=== PATIENT | male | born 1935 ===

== ENCOUNTER 2021-12-09 13:01 | Inpatient (IN) | payer MEDICARE ==
--- NOTE | 2021-12-11 09:55 | Consultation ---
History of Present Illness - Reason for Consult Consult date: 12/11/21 Medical management - History of Present Illness Patient is a 86-year-old male past medical history of coronary artery disease and dementia with behavioral disturbances who presented due to agitation restlessness, and delusions involving his butter wrapper plotting against his . The caregiver reported that the patient made threats to drown himself in a carbajal near his home and carrying a gun around the house while constantly pacing. Patient denies any hallucinations. The hospitalist service was consulted for medical management. Past History Past Medical History: CAD, other (Dementia with behavioral disturbance) Past Surgical History: No surgical history Social history: , lives with family, full code Family history: no significant family history Medications and Allergies Allergies Allergy/AdvReac Type Severity Reaction Status Date / Time No Known Allergies Allergy Unverified 12/09/21 13:02 Home Medications Medication Instructions Recorded Confirmed Last Taken Type Aspirin [Aspirin BABY CHEW TAB] 81 mg PO QDAY 12/10/21 12/10/21 Unknown History AtorvaSTATin [Lipitor] 40 mg PO QHS 12/10/21 12/10/21 Unknown History Cyanocobalamin [Vitamin B-12] 1,000 mcg PO DAILY 12/10/21 12/10/[address] [DepaKOTE DR] 125 mg PO BID 12/10/21 12/10/21 Unknown History Dorzolamide HCl/Timolol Maleat 22.3 mg OU BID 12/10/21 12/10/21 Unknown History [Cosopt Eye Drops] Escitalopram [Lexapro] 10 mg PO QHS 12/10/21 12/10/21 Unknown History Ibuprofen [Motrin 800 MG tab] 800 mg PO DAILY 12/10/21 12/10/21 Unknown History Latanoprost 0.005% [Xalatan 0.005%] 1 drop OU QHS 12/10/21 12/10/21 Unknown History QUEtiapine [SEROquel] 25 mg PO 1400 12/10/21 12/10/21 Unknown History Quetiapine Fumarate [SEROquel] 50 mg PO QHS 12/10/21 12/10/21 Unknown History buPROPion XL [Wellbutrin XL] 150 mg PO QDAY 12/10/21 12/10/21 Unknown History Review of Systems All systems: negative Exam - Constitutional Vitals: Temp Pulse Resp BP Pulse Ox 99.2 F 72 20 137/71 97 12/11/21 09:08 12/11/21 09:08 12/11/21 09:08 12/11/21 09:08 12/11/21 09:08 General appearance: Present: no acute distress, well-nourished - EENT Eyes: Present: PERRL, EOM intact (Legally blind) ENT: hearing intact, clear oral mucosa, dentition normal - Neck Neck: Present: supple, normal ROM - Respiratory Respiratory effort: normal Respiratory: bilateral: CTA - Cardiovascular Rhythm: regular Heart Sounds: Present: S1 & S2 - Extremities Extremities: no ischemia, pulses intact, pulses symmetrical, No edema, normal temperature, normal color Peripheral Pulses: within normal limits - Abdominal General gastrointestinal: Present: soft, non-tender, non-distended, normal bowel sounds Male genitourinary: Present: deferred - Rectal Rectal Exam: deferred - Integumentary Integumentary: Present: clear, warm, dry - Musculoskeletal Musculoskeletal: strength equal bilaterally - Psychiatric Psychiatric: appropriate mood/affect, cooperative - Neurologic Neurologic: CNII-XII intact, moves all extremities - Allied Health Allied health notes reviewed: nursing Results - Labs CBC & Chem 7: 12/11/21 13:32 12/11/21 13:32 Assessment and Plan Patient is a 86-year-old male past medical history of coronary artery disease and dementia with behavioral disturbances who presented due to agitation restlessness, and delusions involving his butter wrapper plotting against his . The caregiver reported that the patient made threats to drown himself in a carbajal near his home and carrying a gun around the house while constantly pacing. Patient denies any hallucinations. The hospitalist service was consulted for medical management. #Dementia with behavioral disturbances Management per primary #Coronary artery disease Continue home aspirin 81 mg daily and atorvastatin 40 mg daily #Advanced care planning -Disease education conducted, care plan discussed, diagnoses discussed, prognosis discussed, and patient acknowledges understanding with care plan -Time: +30 min Thank you for this interesting consult. We will continue to follow.
--- NOTE | 2021-12-11 11:01 | History and Physical Report ---
GP History & Physical - History of Present Illness Date of admission: 12/10/21 Date of Examination: 12/11/21 Reason for Admission: Danger to self, Failure of Outpatient Treatment, Severe anxiety/depression History of Present Illness: The patient was seen today. The patient has poor insight. He was admitted for being delusional, agitated, restless and experiencing AVH. Patient believed caregiver was plotting against his therefore he kicked the caregiver out of his home. Caregiver reports patient carries a gun with him around the house, and constantly paces. Patient also made threats to drown himself in a carbajal near his home, according to admission note. During my evaluation, the patient is very [place]. He is a/o x 2. He believes he's admitted for "heart problems." The patient then says "I really don't know." I ask him about some of the things reported upon admission, he says "God, no I didn't do any of that. I don't want to hurt myself or any one." He denies hallucinations. PAST PSYCHIATRIC HISTORY: PAST MEDICAL HISTORY: Family Psychiatric History None reported or documented SOCIAL HISTORY REVIEW OF SYSTEMS ROS: Unable to assess MENTAL STATUS General Appearance and Behavior: age appropriate, good eye contact, cooperative, calm, pleasant Cooperation: Cooperative Psychomotor Behavior: within normal limits Mood: confused Affect and affective range: Congruent with stated mood Thought Process: circumstantial Thought Content: none Speech: Normal volume and Regular rate and rhythm Suicidal Ideation: Denies Homicidal Ideation: Denies HI Hallucinations: Denies Delusions: None elicited Impulse Control: Limited Insight and Judgment: Limited Memory: Limited Attention: Attentive Orientation: alert and oriented Diagnoses: Dementia with Behavioral Disturbance Treatment Plan Patient will be admitted for inpatient psychiatric evaluation, medication adjustment and close monitoring The patient's behavior, mood, sleep and appetite will be closely monitored. Patient will be enrolled in individual and group therapeutic sessions and encouraged to attend. Patient will be provided with a safe and structured environment. Patient's physical health needs will be addressed by the Hospitalist. Hospitalist Consulted Labs including CBC, CMP, Lipid profile and Hemoglobin A1C ordered Social Assessment will be completed and the Rn Wound Care will work with patient and family to ensure a suitable and safe disposition Medication adjustment will be made as clinically indicated Continue home medications Usual Wellness Christian/Preservation: The patient agreed on the treatment plan, understood the risk, benefit, alternative treatment, potential consequence of no treatment, and gave informed consent. Legal Status: Involuntary Reaction to Hospitalization: Accepting Case staffed with Dr. Roberts Legal Status: Voluntary Reaction to Hospitalization: Accepting Medications and Allergies Allergies Allergy/AdvReac Type Severity Reaction Status Date / Time No Known Allergies Allergy Unverified 12/09/21 13:02 Home Medications Medication Instructions Recorded Confirmed Last Taken Type Aspirin [Aspirin BABY CHEW TAB] 81 mg PO QDAY 12/10/21 12/10/21 Unknown History AtorvaSTATin [Lipitor] 40 mg PO QHS 12/10/21 12/10/21 Unknown History Cyanocobalamin [Vitamin B-12] 1,000 mcg PO DAILY 12/10/21 12/10/21 Unknown History Divalproex [Gregor TOLENTINO] 125 mg PO BID 12/10/21 12/10/21 Unknown History Dorzolamide HCl/Timolol Maleat 22.3 mg OU BID 12/10/21 12/10/21 Unknown History [Cosopt Eye Drops] Escitalopram [Lexapro] 10 mg PO QHS 12/10/21 12/10/21 Unknown History Ibuprofen [Motrin 800 MG tab] 800 mg PO DAILY 12/10/21 12/10/21 Unknown History Latanoprost 0.005% [Xalatan 0.005%] 1 drop OU QHS 12/10/21 12/10/21 Unknown History QUEtiapine [SEROquel] 25 mg PO 1400 12/10/21 12/10/21 Unknown History Quetiapine Fumarate [SEROquel] 50 mg PO QHS 12/10/21 12/10/21 Unknown History buPROPion XL [Wellbutrin XL] 150 mg PO QDAY 12/10/21 12/10/21 Unknown History Results - Results Labs/Vitals: Last Vital Signs Temp 99.2 F 12/11/21 09:08 Pulse 72 12/11/21 09:08 Resp 20 12/11/21 09:08 BP 137/71 12/11/21 09:08 Pulse Ox 97 12/11/21 09:08 Physical Examination - Constitutional Vitals: Vital Signs Temp Pulse Resp BP Pulse Ox 99.2 F 72 20 137/71 97 12/11/21 09:08 12/11/21 09:08 12/11/21 09:08 12/11/21 09:08 08/12/22 09:08 Temperature -Last 24 Hours Temperature 99.2 F Temperature 97.8 F Mental Status Exam - Vital signs Last Vital Signs Temp 99.2 F 12/11/21 09:08 Pulse 72 12/11/21 09:08 Resp 20 12/11/21 09:08 BP 137/71 12/11/21 09:08 Pulse Ox 97 12/11/21 09:08 Physician Certification - Certification Statement Physician Certification Statement: This is an acknowledgement statement that RENETTA Morgan LILIANA is a 86 year old M who requires inpatient psychiatric admission for treatment which could reasonably be expected to improve the patient's condition for Estimated period of time patient will need to remain in the hospital: [ ] Plan for post-hospital care: [ ]
[2021-12-11] MEDS ORDERED: NON-FORMULARY EACH (Dorzolamide Hcl/Timolol Maleat [Cosopt Eye Drops] 10 ML Drops) OU SCH (11:15)
[2021-12-11] MEDS: IBUPROFEN 800 MG TAB PO SCH (12:13)
[2021-12-11] MEDS: DIVALPROEX DR 125 MG TAB PO SCH ×2 (12:14→21:18)
[2021-12-11] MEDS: CYANOCOBALAMIN (VIT B-12) 1000 MCG TAB PO SCH (12:14)
[2021-12-11] MEDS: ASPIRIN 81 MG TAB CHEW PO SCH (12:14)
[2021-12-11] MEDS: buPROPion XL 150 MG TAB PO SCH (12:14)
[2021-12-11] MEDS: QUEtiapine 25 MG TAB PO SCH ×2 (13:06→21:19)
[2021-12-11 13:55] LABS: Basophils % (Auto) 0.4 % (0.0-1.8); Eosinophils # (Auto) 0.1 K/mm3 (0.0-0.4); Eosinophils % (Auto) 1.1 % (0.0-4.3); Hemoglobin 14.1 gm/dl (11.8-15.2); Lymphocytes # (Auto) 1.4 K/mm3 (1.2-5.4); Lymphocytes % (Auto) 26.4 % (13.4-35.0); Mean Corpuscular HGB Conc 34 % (32-34); Mean Corpuscular Volume 88 fl (84-94); Monocytes # (Auto) 0.8 K/mm3 (0.0-0.8); Monocytes % (Auto) 15.8 % (0.0-7.3); Platelet Count 199 K/mm3 (140-440); Red Blood Count 4.77 M/mm3 (3.65-5.03); Red Cell Distribution Width 14.6 % (13.2-15.2)
[2021-12-11 14:12] LABS: Calcium 8.7 mg/dL (8.4-10.2); Chol/HDL Ratio 5.82 %
[2021-12-11 14:43] LABS: Hepatitis B Surface Antigen Non-Reactive (Negative); Hepatitis C Virus Antibody Non-Reactive (NonReactive)
[2021-12-11] MEDS: LATANOPROST 0.005% OPHTH SOLN 2.5 ML OU SCH (21:18)
[2021-12-11] MEDS: ESCITALOPRAM 10 MG TAB PO SCH (21:19)
[2021-12-11] MEDS ORDERED: NON-FORMULARY EACH (Quetiapine Fumarate [Seroquel] 50 MG Tablet) PO SCH (22:00)
[2021-12-12] MEDS: IBUPROFEN 800 MG TAB PO SCH ×2 (08:40→10:35)
[2021-12-12] MEDS: DIVALPROEX DR 125 MG TAB PO SCH ×3 (08:40→21:06)
[2021-12-12] MEDS: CYANOCOBALAMIN (VIT B-12) 1000 MCG TAB PO SCH ×2 (08:40→10:35)
[2021-12-12] MEDS: ASPIRIN 81 MG TAB CHEW PO SCH ×2 (08:40→10:35)
[2021-12-12] MEDS: buPROPion XL 150 MG TAB PO SCH ×2 (08:40→10:36)
--- NOTE | 2021-12-12 08:54 | Progress Note ---
Subjective Date of service: 12/12/21 Principal diagnosis: Dementia w/Behavioral Disturbance Subjective Comment: The patient was seen today. He is calm, and cooperative. The patient is pleasant. He says he's doing fine. He denies SI/HI. He says "heck no" when asked. He says his appetite is good. I ask him about why he came in. He says "I didn't know none of that." REVIEW OF SYSTEMS Unable to assess MENTAL STATUS General Appearance and Behavior: age appropriate, good eye contact, cooperative, calm, pleasant Cooperation: Cooperative Psychomotor Behavior: within normal limits Mood: confused Affect and affective range: Congruent with stated mood Thought Process: circumstantial Thought Content: none Speech: Normal volume and Regular rate and rhythm Suicidal Ideation: Denies Homicidal Ideation: Denies HI Hallucinations: Denies Delusions: None elicited Impulse Control: Limited Insight and Judgment: Limited Memory: Limited Attention: Attentive Orientation: alert and oriented Diagnoses: Dementia with Behavioral Disturbance Treatment Plan Patient will be admitted for inpatient psychiatric evaluation, medication adjustment and close monitoring The patient's behavior, mood, sleep and appetite will be closely monitored. Patient will be enrolled in individual and group therapeutic sessions and encouraged to attend. Patient will be provided with a safe and structured environment. Patient's physical health needs will be addressed by the Hospitalist. Hospitalist Consulted Labs including CBC, CMP, Lipid profile and Hemoglobin A1C ordered Social Assessment will be completed and the Registered Health Nurse will work with patient and family to ensure a suitable and safe disposition Medication adjustment will be made as clinically indicated Continue home medications Usual Wellness Gnosticism/Preservation: The patient agreed on the treatment plan, understood the risk, benefit, al ternative treatment, potential consequence of no treatment, and gave informed consent. Legal Status: Involuntary Reaction to Hospitalization: Accepting Case staffed with Dr. Roberts Medications and Allergies Allergies Allergy/AdvReac Type Severity Reaction Status Date / Time No Known Allergies Allergy Unverified 12/09/21 13:02 Home Medications Medication Instructions Recorded Confirmed Last Taken Type Aspirin [Aspirin BABY CHEW TAB] 81 mg PO QDAY 12/10/21 12/10/21 Unknown History AtorvaSTATin [Lipitor] 40 mg PO QHS 12/10/21 12/10/21 Unknown History Cyanocobalamin [Vitamin B-12] 1,000 mcg PO DAILY 12/10/21 12/10/[address] [DepaKOTE DR] 125 mg PO BID 12/10/21 12/10/21 Unknown History Dorzolamide HCl/Timolol Maleat 22.3 mg OU BID 12/10/21 12/10/21 Unknown History [Cosopt Eye Drops] Escitalopram [Lexapro] 10 mg PO QHS 12/10/21 12/10/21 Unknown History Ibuprofen [Motrin 800 MG tab] 800 mg PO DAILY 12/10/21 12/10/21 Unknown History Latanoprost 0.005% [Xalatan 0.005%] 1 drop OU QHS 12/10/21 12/10/21 Unknown History QUEtiapine [SEROquel] 25 mg PO 1400 12/10/21 12/10/21 Unknown History Quetiapine Fumarate [SEROquel] 50 mg PO QHS 12/10/21 12/10/21 Unknown History buPROPion XL [Wellbutrin XL] 150 mg PO QDAY 12/10/21 12/10/21 Unknown History Active Meds: Active Medications Aspirin (Aspirin 81 Mg Tab Chew) 81 mg PO QDAY [facility] Last Admin: 12/12/21 08:40 Dose: 81 mg Atorvastatin Calcium (Atorvastatin 40 Mg Tab) 40 mg PO QHS [facility] Last Admin: 12/11/21 21:19 Dose: 40 mg Bupropion HCl (Bupropion Xl 150 Mg Tab) 150 mg PO QDAY [facility] Last Admin: 12/12/21 08:40 Dose: 150 mg Cyanocobalamin (Cyanocobalamin (Vit B-12) 1000 Mcg Tab) 1,000 mcg PO DAILY [facility] Last Admin: 12/12/21 08:40 Dose: 1,000 mcg Divalproex Sodium (Divalproex Dr 125 Mg Tab) 125 mg PO BID [facility] Last Admin: 12/12/21 08:40 Dose: 125 mg Escitalopram Oxalate (Escitalopram 10 Mg Tab) 10 mg PO QHS [facility] Last Admin: 12/11/21 21:19 Dose: 10 mg Ibuprofen (Ibuprofen 800 Mg Tab) 800 mg PO DAILY [facility] Last Admin: 12/12/21 08:40 Dose: 800 mg Latanoprost (Latanoprost 0.005% Ophth Soln 2.5 Ml) 1 drops OU QHS [facility] Last Admin: 12/11/21 21:18 Dose: 1 drops Miscellaneous Medication (Dorzolamide Hcl/Timolol Maleat [Cosopt Eye Drops]) 22.3 mg OU BID [facility] Quetiapine Fumarate (Quetiapine 25 Mg Tab) 25 mg PO 1400 [facility] Last Admin: 12/11/21 13:06 Dose: 25 mg Quetiapine Fumarate (Quetiapine 25 Mg Tab) 50 mg PO QHS [facility] Last Admin: 12/11/21 21:19 Dose: 50 mg Results - Results Labs/Vitals: Laboratory Last Values WBC 5.3 K/mm3 (4.5-11.0) 12/11/21 13:32 RBC 4.77 M/mm3 (3.65-5.03) 12/11/21 13:32 Hgb 14.1 gm/dl (11.8-15.2) 12/11/21 13:32 Hct 42.0 % (35.5-45.6) 12/11/21 13:32 MCV 88 fl (84-94) 12/11/21 13:32 MCH 30 pg (28-32) 12/11/21 13:32 MCHC 34 % (32-34) 12/11/21 13:32 RDW 14.6 % (13.2-15.2) 12/11/21 13:32 Plt Count 199 K/mm3 (140-440) 12/11/21 13:32 Lymph % (Auto) 26.4 % (13.4-35.0) 12/11/21 13:32 [place] % (Auto) 15.8 % (0.0-7.3) H 12/11/21 13:32 Eos % (Auto) 1.1 % (0.0-4.3) 12/11/21 13:32 Baso % (Auto) 0.4 % (0.0-1.8) 12/11/21 13:32 Lymph # (Auto) 1.4 K/mm3 (1.2-5.4) 12/11/21 13:32 [place] # (Auto) 0.8 K/mm3 (0.0-0.8) 12/11/21 13:32 Eos # (Auto) 0.1 K/mm3 (0.0-0.4) 12/11/21 13:32 Baso # (Auto) 0.0 K/mm3 (0.0-0.1) 12/11/21 13:32 Seg Neutrophils % 56.3 % (40.0-70.0) 12/11/21 13:32 Seg Neutrophils # 3.0 K/mm3 (1.8-7.7) 12/11/21 13:32 Sodium 138 mmol/L (137-145) 12/11/21 13:32 Potassium 4.1 mmol/L (3.6-5.0) 12/11/21 13:32 Chloride 101.4 mmol/L (98-107) 12/11/21 13:32 Carbon Dioxide 24 mmol/L (22-30) 12/11/21 13:32 Anion Gap 17 mmol/L 12/11/21 13:32 BUN 21 mg/dL (9-20) H 12/11/21 13:32 Creatinine 1.4 mg/dL (0.8-1.3) H 12/11/21 13:32 Estimated GFR 48 ml/min 12/11/21 13:32 BUN/Creatinine Ratio 15 % 12/11/21 13:32 Glucose 117 mg/dL (75-100) H 12/11/21 13:32 Hemoglobin A1c 6.1 % (4-6) H 12/11/21 13:32 Calcium 8.7 mg/dL (8.4-10.2) 12/11/21 13:32 Total Bilirubin 0.50 mg/dL (0.1-1.2) 12/11/21 13:32 AST 45 units/L (5-40) H 12/11/21 13:32 ALT 50 units/L (7-56) 12/11/21 13:32 Alkaline Phosphatase 69 units/L (35-129) 12/11/21 13:32 Total Protein 6.1 g/dL (6.3-8.2) L 12/11/21 13:32 Albumin 4.0 g/dL (3.9-5) 12/11/21 13:32 Albumin/Globulin Ratio 1.9 % 12/11/21 13:32 Triglycerides 251 mg/dL (2-149) H 12/11/21 13:32 Cholesterol 239 mg/dL (50-199) H 12/11/21 13:32 LDL Cholesterol Direct 158 mg/dL (50-130) H 12/11/21 13:32 HDL Cholesterol 41 mg/dL (40-59) 12/11/21 13:32 Cholesterol/HDL Ratio 5.82 % 12/11/21 13:32 TSH 3.160 mlU/mL (0.270-4.200) 12/11/21 13:32 Hepatitis A IgM Ab Non-reactive (NonReactive) 12/11/21 13:32 Hep Bs Antigen Non-reactive (Negative) 12/11/21 13:32 Hep B Core IgM Ab Non-reactive (NonReactive) 12/11/21 13:32 Hepatitis C Antibody Non-reactive (NonReactive) 12/11/21 13:32 Last Vital Signs Temp 100.9 F H 12/12/21 07:55 Pulse 76 12/12/21 07:55 Resp 18 12/12/21 07:55 BP 136/71 12/12/21 07:55 Pulse Ox 97 12/11/21 19:57
[2021-12-12] MEDS: QUEtiapine 25 MG TAB PO SCH ×2 (13:40→21:06)
[2021-12-12] MEDS: ESCITALOPRAM 10 MG TAB PO SCH (21:06)
[2021-12-12] MEDS: LATANOPROST 0.005% OPHTH SOLN 2.5 ML OU SCH (21:06)
--- NOTE | 2021-12-13 09:30 | Progress Note ---
Assessment and Plan Assessment and plan: Patient is a 86-year-old male past medical history of coronary artery disease and dementia with behavioral disturbances who presented due to agitation restlessness, and delusions involving his senior dot net developer plotting against his . The caregiver reported that the patient made threats to drown himself in a carbajal near his home and carrying a gun around the house while constantly pacing. Patient denies any hallucinations. The hospitalist service was consulted for medical management. #Dementia with behavioral disturbances Management per primary #Coronary artery disease Continue home aspirin 81 mg daily and atorvastatin 40 mg daily #Advanced care planning -Disease education conducted, care plan discussed, diagnoses discussed, prognosis discussed, and patient acknowledges understanding with care plan -Time: +30 min Thank you for this interesting consult. Patient is medically clear for disch arge from a medicine standpoint whenever [facility] psych feels he is ready for discharge. Disposition Plan: Continue medical management Total Time Spent with Patient (Minutes): 30 minutes History Interval history: No acute events overnight. Hospitalist Physical - Constitutional Vitals: Temp Pulse Resp BP Pulse Ox 98.6 F 64 18 140/66 92 12/12/21 20:56 12/12/21 20:56 12/12/21 20:56 12/12/21 20:56 12/12/21 20:56 General appearance: Present: no acute distress, well-nourished - EENT Eyes: Present: PERRL, EOM intact (Legally blind) ENT: hearing intact, clear oral mucosa, dentition normal - Neck Neck: Present: supple, normal ROM - Respiratory Respiratory effort: normal Respiratory: bilateral: CTA - Cardiovascular Rhythm: regular Heart Sounds: Present: S1 & S2 - Extremities Extremities: no ischemia, pulses intact, pulses symmetrical, No edema, normal temperature, normal color Peripheral Pulses: within normal limits - Abdominal General gastrointestinal: soft, non-tender, non-distended, normal bowel sounds - Integumentary Integumentary: Present: clear, warm, dry - Psychiatric Psychiatric: appropriate mood/affect, cooperative - Neurologic Neurologic: CNII-XII intact, moves all extremities - Allied Health Allied health notes reviewed: nursing Results - Labs CBC & Chem 7: 12/11/21 13:32 12/11/21 13:32 Labs: Laboratory Last Values WBC 5.3 K/mm3 (4.5-11.0) 12/11/21 13:32 RBC 4.77 M/mm3 (3.65-5.03) 12/11/21 13:32 Hgb 14.1 gm/dl (11.8-15.2) 12/11/21 13:32 Hct 42.0 % (35.5-45.6) 12/11/21 13:32 MCV 88 fl (84-94) 12/11/21 13:32 MCH 30 pg (28-32) 12/11/21 13:32 MCHC 34 % (32-34) 12/11/21 13:32 RDW 14.6 % (13.2-15.2) 12/11/21 13:32 Plt Count 199 K/mm3 (140-440) 12/11/21 13:32 Lymph % (Auto) 26.4 % (13.4-35.0) 12/11/21 13:32 [place] % (Auto) 15.8 % (0.0-7.3) H 12/11/21 13:32 Eos % (Auto) 1.1 % (0.0-4.3) 12/11/21 13:32 Baso % (Auto) 0.4 % (0.0-1.8) 12/11/21 13:32 Lymph # (Auto) 1.4 K/mm3 (1.2-5.4) 12/11/21 13:32 [place] # (Auto) 0.8 K/mm3 (0.0-0.8) 12/11/21 13:32 Eos # (Auto) 0.1 K/mm3 (0.0-0.4) 12/11/21 13:32 Baso # (Auto) 0.0 K/mm3 (0.0-0.1) 12/11/21 13:32 Seg Neutrophils % 56.3 % (40.0-70.0) 12/11/21 13:32 Seg Neutrophils # 3.0 K/mm3 (1.8-7.7) 12/11/21 13:32 Sodium 138 mmol/L (137-145) 12/11/21 13:32 Potassium 4.1 mmol/L (3.6-5.0) 12/11/21 13:32 Chloride 101.4 mmol/L (98-107) 12/11/21 13:32 Carbon Dioxide 24 mmol/L (22-30) 12/11/21 13:32 Anion Gap 17 mmol/L 12/11/21 13:32 BUN 21 mg/dL (9-20) H 12/11/21 13:32 Creatinine 1.4 mg/dL (0.8-1.3) H 12/11/21 13:32 Estimated GFR 48 ml/min 12/11/21 13:32 BUN/Creatinine Ratio 15 % 12/11/21 13:32 Glucose 117 mg/dL (75-100) H 12/11/21 13:32 Hemoglobin A1c 6.1 % (4-6) H 12/11/21 13:32 Calcium 8.7 mg/dL (8.4-10.2) 12/11/21 13:32 Total Bilirubin 0.50 mg/dL (0.1-1.2) 12/11/21 13:32 AST 45 units/L (5-40) H 12/11/21 13:32 ALT 50 units/L (7-56) 12/11/21 13:32 Alkaline Phosphatase 69 units/L (35-129) 12/11/21 13:32 Total Protein 6.1 g/dL (6.3-8.2) L 12/11/21 13:32 Albumin 4.0 g/dL (3.9-5) 12/11/21 13:32 Albumin/Globulin Ratio 1.9 % 12/11/21 13:32 Triglycerides 251 mg/dL (2-149) H 12/11/21 13:32 Cholesterol 239 mg/dL (50-199) H 12/11/21 13:32 LDL Cholesterol Direct 158 mg/dL (50-130) H 12/11/21 13:32 HDL Cholesterol 41 mg/dL (40-59) 12/11/21 13:32 Cholesterol/HDL Ratio 5.82 % 12/11/21 13:32 TSH 3.160 mlU/mL (0.270-4.200) 12/11/21 13:32 Hepatitis A IgM Ab Non-reactive (NonReactive) 12/11/21 13:32 Hep Bs Antigen Non-reactive (Negative) 12/11/21 13:32 Hep B Core IgM Ab Non-reactive (NonReactive) 12/11/21 13:32 Hepatitis C Antibody Non-reactive (NonReactive) 12/11/21 13:32 Obrien/IV: Voiding Method Toilet Active Medications - Current Medications Current Medications: Generic Name Dose Route Start Last Admin Trade Name Enriqueq PRN Reason Stop Dose Admin Aspirin 81 mg 12/11/21 12:00 12/12/21 10:35 Aspirin 81 Mg Tab Chew PO Not Given QDAY [facility] Atorvastatin Calcium 40 mg 12/11/21 22:00 12/12/21 21:06 Atorvastatin 40 Mg Tab PO 40 mg QHS [facility] Administration Bupropion HCl 150 mg 12/11/21 12:00 12/12/21 10:36 Bupropion Xl 150 Mg Tab PO Not Given QDAY [facility] Cyanocobalamin 1,000 mcg 12/11/21 12:00 12/12/21 10:35 Cyanocobalamin (Vit B-12) 1000 Mcg Tab PO Not Given DAILY [facility] Divalproex Sodium 125 mg 12/11/21 12:00 12/12/21 21:[address] 125 Mg Tab PO 125 mg BID [facility] Administration Escitalopram Oxalate 10 mg 12/11/21 22:00 12/12/21 21:06 Escitalopram 10 Mg Tab PO 10 mg QHS [facility] Administration Ibuprofen 800 mg 12/11/21 12:00 12/12/21 10:35 Ibuprofen 800 Mg Tab PO Not Given DAILY [facility] Latanoprost 1 drops 12/11/21 22:00 12/12/21 21:06 Latanoprost 0.005% Ophth Soln 2.5 Ml OU 1 drops QHS [facility] Administration Miscellaneous Medication 22.3 mg 12/11/21 11:15 Dorzolamide Hcl/Timolol Maleat [Cosopt Eye Drops] OU BID [facility] Quetiapine Fumarate 25 mg 12/11/21 14:00 12/12/21 13:40 Quetiapine 25 Mg Tab PO 25 mg 1400 [facility] Administration Quetiapine Fumarate 50 mg 12/11/21 22:00 12/12/21 21:06 Quetiapine 25 Mg Tab PO 50 mg QHS [facility] Administration
[2021-12-13] MEDS: IBUPROFEN 800 MG TAB PO SCH (10:42)
[2021-12-13] MEDS: buPROPion XL 150 MG TAB PO SCH (10:42)
[2021-12-13] MEDS: DIVALPROEX DR 125 MG TAB PO SCH ×2 (10:43→22:00)
[2021-12-13] MEDS: ASPIRIN 81 MG TAB CHEW PO SCH (10:43)
[2021-12-13] MEDS: CYANOCOBALAMIN (VIT B-12) 1000 MCG TAB PO SCH (10:43)
--- NOTE | 2021-12-13 13:11 | Progress Note ---
Subjective Date of service: 12/13/21 Principal diagnosis: Dementia w/Behavioral Disturbance Subjective Comment: The patient was seen today. He is calm, and cooperative. The patient is sleeping in the dayroom. He easily arouses, but says he's tired. He says he slept well. The patient denies SI/HI or hallucinations. REVIEW OF SYSTEMS Unable to assess MENTAL STATUS General Appearance and Behavior: age appropriate, good eye contact, cooperative, calm, pleasant Cooperation: Cooperative Psychomotor Behavior: within normal limits Mood: confused Affect and affective range: Congruent with stated mood Thought Process: circumstantial Thought Content: none Speech: Normal volume and Regular rate and rhythm Suicidal Ideation: Denies Homicidal Ideation: Denies HI Hallucinations: Denies Delusions: None elicited Impulse Control: Limited Insight and Judgment: Limited Memory: Limited Attention: Attentive Orientation: alert and oriented Diagnoses: Dementia with Behavioral Disturbance Treatment Plan Patient will be admitted for inpatient psychiatric evaluation, medication adjustment and close monitoring The patient's behavior, mood, sleep and appetite will be closely monitored. Patient will be enrolled in individual and group therapeutic sessions and encouraged to attend. Patient will be provided with a safe and structured environment. Patient's physical health needs will be addressed by the Hospitalist. Hospitalist Consulted Labs including CBC, CMP, Lipid profile and Hemoglobin A1C ordered Social Assessment will be completed and the Staffing Assistant will work with patient and family to ensure a suitable and safe disposition Medication adjustment will be made as clinically indicated Continue home medications Usual Wellness [facility]: The patient agreed on the treatment plan, understood the risk, benefit, alternative treatment, potential consequence of no treatment, and gave informed consent. Legal Status: Involuntary Reaction to Hospitalization: Accepting Case staffed with Dr. Roberts Medications and Allergies Allergies Allergy/AdvReac Type Severity Reaction Status Date / Time No Known Allergies Allergy Unverified 12/09/21 13:02 Home Medications Medication Instructions Recorded Confirmed Last Taken Type Aspirin [Aspirin BABY CHEW TAB] 81 mg PO QDAY 12/10/21 12/10/21 Unknown History AtorvaSTATin [Lipitor] 40 mg PO QHS 12/10/21 12/10/21 Unknown History Cyanocobalamin [Vitamin B-12] 1,000 mcg PO DAILY 12/10/21 12/10/[address] [DepaKOTE DR] 125 mg PO BID 12/10/21 12/10/21 Unknown History Dorzolamide HCl/Timolol Maleat 22.3 mg OU BID 12/10/21 12/10/21 Unknown History [Cosopt Eye Drops] Escitalopram [Lexapro] 10 mg PO QHS 12/10/21 12/10/21 Unknown History Ibuprofen [Motrin 800 MG tab] 800 mg PO DAILY 12/10/21 12/10/21 Unknown History Latanoprost 0.005% [Xalatan 0.005%] 1 drop OU QHS 12/10/21 12/10/21 Unknown History QUEtiapine [SEROquel] 25 mg PO 1400 12/10/21 12/10/21 Unknown History Quetiapine Fumarate [SEROquel] 50 mg PO QHS 12/10/21 12/10/21 Unknown History buPROPion XL [Wellbutrin XL] 150 mg PO QDAY 12/10/21 12/10/21 Unknown History Active Meds: Active Medications Aspirin (Aspirin 81 Mg Tab Chew) 81 mg PO QDAY [facility] Last Admin: 12/13/21 10:43 Dose: 81 mg Atorvastatin Calcium (Atorvastatin 40 Mg Tab) 40 mg PO QHS [facility] Last Admin: 12/12/21 21:06 Dose: 40 mg Bupropion HCl (Bupropion Xl 150 Mg Tab) 150 mg PO QDAY [facility] Last Admin: 12/13/21 10:42 Dose: 150 mg Cyanocobalamin (Cyanocobalamin (Vit B-12) 1000 Mcg Tab) 1,000 mcg PO DAILY [facility] Last Admin: 12/13/21 10:43 Dose: 1,000 mcg Divalproex Sodium (Divalproex Dr 125 Mg Tab) 125 mg PO BID [facility] Last Admin: 12/13/21 10:43 Dose: 125 mg Escitalopram Oxalate (Escitalopram 10 Mg Tab) 10 mg PO QHS [facility] Last Admin: 12/12/21 21:06 Dose: 10 mg Ibuprofen (Ibuprofen 800 Mg Tab) 800 mg PO DAILY [facility] Last Admin: 12/13/21 10:42 Dose: 800 mg Latanoprost (Latanoprost 0.005% Ophth Soln 2.5 Ml) 1 drops OU QHS [facility] Last Admin: 12/12/21 21:06 Dose: 1 drops Miscellaneous Medication (Dorzolamide Hcl/Timolol Maleat [Cosopt Eye Drops]) 22.3 mg OU BID [facility] Quetiapine Fumarate (Quetiapine 25 Mg Tab) 25 mg PO 1400 [facility] Last Admin: 12/12/21 13:40 Dose: 25 mg Quetiapine Fumarate (Quetiapine 25 Mg Tab) 50 mg PO QHS [facility] Last Admin: 12/12/21 21:06 Dose: 50 mg Results - Results Labs/Vitals: Laboratory Last Values WBC 5.3 K/mm3 (4.5-11.0) 12/11/21 13:32 RBC 4.77 M/mm3 (3.65-5.03) 12/11/21 13:32 Hgb 14.1 gm/dl (11.8-15.2) 12/11/21 13:32 Hct 42.0 % (35.5-45.6) 12/11/21 13:32 MCV 88 fl (84-94) 12/11/21 13:32 MCH 30 pg (28-32) 12/11/21 13:32 MCHC 34 % (32-34) 12/11/21 13:32 RDW 14.6 % (13.2-15.2) 12/11/21 13:32 Plt Count 199 K/mm3 (140-440) 12/11/21 13:32 Lymph % (Auto) 26.4 % (13.4-35.0) 12/11/21 13:32 [place] % (Auto) 15.8 % (0.0-7.3) H 12/11/21 13:32 Eos % (Auto) 1.1 % (0.0-4.3) 12/11/21 13:32 Baso % (Auto) 0.4 % (0.0-1.8) 12/11/21 13:32 Lymph # (Auto) 1.4 K/mm3 (1.2-5.4) 12/11/21 13:32 [place] # (Auto) 0.8 K/mm3 (0.0-0.8) 12/11/21 13:32 Eos # (Auto) 0.1 K/mm3 (0.0-0.4) 12/11/21 13:32 Baso # (Auto) 0.0 K/mm3 (0.0-0.1) 12/11/21 13:32 Seg Neutrophils % 56.3 % (40.0-70.0) 12/11/21 13:32 Seg Neutrophils # 3.0 K/mm3 (1.8-7.7) 12/11/21 13:32 Sodium 138 mmol/L (137-145) 12/11/21 13:32 Potassium 4.1 mmol/L (3.6-5.0) 12/11/21 13:32 Chloride 101.4 mmol/L (98-107) 12/11/21 13:32 Carbon Dioxide 24 mmol/L (22-30) 12/11/21 13:32 Anion Gap 17 mmol/L 12/11/21 13:32 BUN 21 mg/dL (9-20) H 12/11/21 13:32 Creatinine 1.4 mg/dL (0.8-1.3) H 12/11/21 13:32 Estimated GFR 48 ml/min 12/11/21 13:32 BUN/Creatinine Ratio 15 % 12/11/21 13:32 Glucose 117 mg/dL (75-100) H 12/11/21 13:32 Hemoglobin A1c 6.1 % (4-6) H 12/11/21 13:32 Calcium 8.7 mg/dL (8.4-10.2) 12/11/21 13:32 Total Bilirubin 0.50 mg/dL (0.1-1.2) 12/11/21 13:32 AST 45 units/L (5-40) H 12/11/21 13:32 ALT 50 units/L (7-56) 12/11/21 13:32 Alkaline Phosphatase 69 units/L (35-129) 12/11/21 13:32 Total Protein 6.1 g/dL (6.3-8.2) L 12/11/21 13:32 Albumin 4.0 g/dL (3.9-5) 12/11/21 13:32 Albumin/Globulin Ratio 1.9 % 12/11/21 13:32 Triglycerides 251 mg/dL (2-149) H 12/11/21 13:32 Cholesterol 239 mg/dL (50-199) H 12/11/21 13:32 LDL Cholesterol Direct 158 mg/dL (50-130) H 12/11/21 13:32 HDL Cholesterol 41 mg/dL (40-59) 12/11/21 13:32 Cholesterol/HDL Ratio 5.82 % 12/11/21 13:32 TSH 3.160 mlU/mL (0.270-4.200) 12/11/21 13:32 Hepatitis A IgM Ab Non-reactive (NonReactive) 12/11/21 13:32 Hep Bs Antigen Non-reactive (Negative) 12/11/21 13:32 Hep B Core IgM Ab Non-reactive (NonReactive) 12/11/21 13:32 Hepatitis C Antibody Non-reactive (NonReactive) 12/11/21 13:32 Last Vital Signs Temp 98.6 F 12/12/21 20:56 Pulse 64 12/12/21 20:56 Resp 18 12/12/21 20:56 BP 140/66 12/12/21 20:56 Pulse Ox 92 12/12/21 20:56
[2021-12-13] MEDS: QUEtiapine 25 MG TAB PO SCH ×2 (13:59→22:00)
[2021-12-13] MEDS: ESCITALOPRAM 10 MG TAB PO SCH (22:00)
[2021-12-13] MEDS: LATANOPROST 0.005% OPHTH SOLN 2.5 ML OU SCH (22:00)
--- NOTE | 2021-12-14 12:12 | Progress Note ---
Subjective Date of service: 12/14/21 Principal diagnosis: Dementia w/Behavioral Disturbance Subjective Comment: The patient was seen today. He is lying in bed resting, but easily arouses. He is calm, and cooperative. He says he feels pretty good today. He says he slept well. The patient denies SI/HI or hallucinations. The patient denied any of incidents that got him admitted into the hospital. REVIEW OF SYSTEMS Unable to assess MENTAL STATUS General Appearance and Behavior: age appropriate, good eye contact, cooperative, calm, pleasant Cooperation: Cooperative Psychomotor Behavior: within normal limits Mood: confused Affect and affective range: Congruent with stated mood Thought Process: circumstantial Thought Content: none Speech: Normal volume and Regular rate and rhythm Suicidal Ideation: Denies Homicidal Ideation: Denies HI Hallucinations: Denies Delusions: None elicited Impulse Control: Limited Insight and Judgment: Limited Memory: Limited Attention: Attentive Orientation: alert and oriented Diagnoses: Dementia with Behavioral Disturbance Treatment Plan Patient will be admitted for inpatient psychiatric evaluation, medication adjustment and close monitoring The patient's behavior, mood, sleep and appetite will be closely monitored. Patient will be enrolled in individual and group therapeutic sessions and encouraged to attend. Patient will be provided with a safe and structured environment. Patient's physical health needs will be addressed by the Hospitalist. Hospitalist Consulted Labs including CBC, CMP, Lipid profile and Hemoglobin A1C ordered Social Assessment will be completed and the Healthcare Technician will work with patient and family to ensure a suitable and safe disposition Medication adjustment will be made as clinically indicated Continue home medications Usual Wellness [facility]/Preservation: The patient agreed on the treatment plan, understood the risk, benefit, alternative treatment, potential consequence of no treatment, and gave informed consent. Legal Status: Involuntary Reaction to Hospitalization: Accepting Case staffed with Dr. Roberts Medications and Allergies Allergies Allergy/AdvReac Type Severity Reaction Status Date / Time No Known Allergies Allergy Unverified 12/09/21 13:02 Home Medications Medication Instructions Recorded Confirmed Last Taken Type Aspirin [Aspirin BABY CHEW TAB] 81 mg PO QDAY 12/10/21 12/10/21 Unknown History AtorvaSTATin [Lipitor] 40 mg PO QHS 12/10/21 12/10/21 Unknown History Cyanocobalamin [Vitamin B-12] 1,000 mcg PO DAILY 12/10/21 12/10/[address] [DepaKOTE DR] 125 mg PO BID 12/10/21 12/10/21 Unknown History Dorzolamide HCl/Timolol Maleat 22.3 mg OU BID 12/10/21 12/10/21 Unknown History [Cosopt Eye Drops] Escitalopram [Lexapro] 10 mg PO QHS 12/10/21 12/10/21 Unknown History Ibuprofen [Motrin 800 MG tab] 800 mg PO DAILY 12/10/21 12/10/21 Unknown History Latanoprost 0.005% [Xalatan 0.005%] 1 drop OU QHS 12/10/21 12/10/21 Unknown History QUEtiapine [SEROquel] 25 mg PO 1400 12/10/21 12/10/21 Unknown History Quetiapine Fumarate [SEROquel] 50 mg PO QHS 12/10/21 12/10/21 Unknown History buPROPion XL [Wellbutrin XL] 150 mg PO QDAY 12/10/21 12/10/21 Unknown History Active Meds: Active Medications Aspirin (Aspirin 81 Mg Tab Chew) 81 mg PO QDAY [facility] Last Admin: 12/13/21 10:43 Dose: 81 mg Atorvastatin Calcium (Atorvastatin 40 Mg Tab) 40 mg PO QHS [facility] Last Admin: 12/13/21 22:00 Dose: 40 mg Bupropion HCl (Bupropion Xl 150 Mg Tab) 150 mg PO QDAY [facility] Last Admin: 12/13/21 10:42 Dose: 150 mg Cyanocobalamin (Cyanocobalamin (Vit B-12) 1000 Mcg Tab) 1,000 mcg PO DAILY [facility] Last Admin: 12/13/21 10:43 Dose: 1,000 mcg Divalproex Sodium (Divalproex Dr 125 Mg Tab) 125 mg PO BID [facility] Last Admin: 12/13/21 22:00 Dose: 125 mg Escitalopram Oxalate (Escitalopram 10 Mg Tab) 10 mg PO QHS [facility] Last Admin: 12/13/21 22:00 Dose: 10 mg Ibuprofen (Ibuprofen 800 Mg Tab) 800 mg PO DAILY [facility] Last Admin: 12/13/21 10:42 Dose: 800 mg Latanoprost (Latanoprost 0.005% Ophth Soln 2.5 Ml) 1 drops OU QHS [facility] Last Admin: 12/13/21 22:00 Dose: 1 drops Miscellaneous Medication (Dorzolamide Hcl/Timolol Maleat [Cosopt Eye Drops]) 22.3 mg OU BID [facility] Quetiapine Fumarate (Quetiapine 25 Mg Tab) 25 mg PO 1400 [facility] Last Admin: 12/13/21 13:59 Dose: 25 mg Quetiapine Fumarate (Quetiapine 25 Mg Tab) 50 mg PO QHS [facility] Last Admin: 12/13/21 22:00 Dose: 50 mg Results - Results Labs/Vitals: Laboratory Last Values WBC 5.3 K/mm3 (4.5-11.0) 12/11/21 13:32 RBC 4.77 M/mm3 (3.65-5.03) 12/11/21 13:32 Hgb 14.1 gm/dl (11.8-15.2) 12/11/21 13:32 Hct 42.0 % (35.5-45.6) 12/11/21 13:32 MCV 88 fl (84-94) 12/11/21 13:32 MCH 30 pg (28-32) 12/11/21 13:32 MCHC 34 % (32-34) 12/11/21 13:32 RDW 14.6 % (13.2-15.2) 12/11/21 13:32 Plt Count 199 K/mm3 (140-440) 12/11/21 13:32 Lymph % (Auto) 26.4 % (13.4-35.0) 12/11/21 13:32 [place] % (Auto) 15.8 % (0.0-7.3) H 12/11/21 13:32 Eos % (Auto) 1.1 % (0.0-4.3) 12/11/21 13:32 Baso % (Auto) 0.4 % (0.0-1.8) 12/11/21 13:32 Lymph # (Auto) 1.4 K/mm3 (1.2-5.4) 12/11/21 13:32 [place] # (Auto) 0.8 K/mm3 (0.0-0.8) 12/11/21 13:32 Eos # (Auto) 0.1 K/mm3 (0.0-0.4) 12/11/21 13:32 Baso # (Auto) 0.0 K/mm3 (0.0-0.1) 12/11/21 13:32 Seg Neutrophils % 56.3 % (40.0-70.0) 12/11/21 13:32 Seg Neutrophils # 3.0 K/mm3 (1.8-7.7) 12/11/21 13:32 Sodium 138 mmol/L (137-145) 12/11/21 13:32 Potassium 4.1 mmol/L (3.6-5.0) 12/11/21 13:32 Chloride 101.4 mmol/L (98-107) 12/11/21 13:32 Carbon Dioxide 24 mmol/L (22-30) 12/11/21 13:32 Anion Gap 17 mmol/L 12/11/21 13:32 BUN 21 mg/dL (9-20) H 12/11/21 13:32 Creatinine 1.4 mg/dL (0.8-1.3) H 12/11/21 13:32 Estimated GFR 48 ml/min 12/11/21 13:32 BUN/Creatinine Ratio 15 % 12/11/21 13:32 Glucose 117 mg/dL (75-100) H 12/11/21 13:32 Hemoglobin A1c 6.1 % (4-6) H 12/11/21 13:32 Calcium 8.7 mg/dL (8.4-10.2) 12/11/21 13:32 Total Bilirubin 0.50 mg/dL (0.1-1.2) 12/11/21 13:32 AST 45 units/L (5-40) H 12/11/21 13:32 ALT 50 units/L (7-56) 12/11/21 13:32 Alkaline Phosphatase 69 units/L (35-129) 12/11/21 13:32 Total Protein 6.1 g/dL (6.3-8.2) L 12/11/21 13:32 Albumin 4.0 g/dL (3.9-5) 12/11/21 13:32 Albumin/Globulin Ratio 1.9 % 12/11/21 13:32 Triglycerides 251 mg/dL (2-149) H 12/11/21 13:32 Cholesterol 239 mg/dL (50-199) H 12/11/21 13:32 LDL Cholesterol Direct 158 mg/dL (50-130) H 12/11/21 13:32 HDL Cholesterol 41 mg/dL (40-59) 12/11/21 13:32 Cholesterol/HDL Ratio 5.82 % 12/11/21 13:32 TSH 3.160 mlU/mL (0.270-4.200) 12/11/21 13:32 Hepatitis A IgM Ab Non-reactive (NonReactive) 12/11/21 13:32 Hep Bs Antigen Non-reactive (Negative) 12/11/21 13:32 Hep B Core IgM Ab Non-reactive (NonReactive) 12/11/21 13:32 Hepatitis C Antibody Non-reactive (NonReactive) 12/11/21 13:32 Last Vital Signs Temp 97.8 F 12/13/21 19:24 Pulse 70 12/13/21 19:24 Resp 17 12/13/21 19:24 BP 159/80 12/13/21 19:24 Pulse Ox 93 12/13/21 19:24
[2021-12-14] MEDS: CYANOCOBALAMIN (VIT B-12) 1000 MCG TAB PO SCH (12:20)
[2021-12-14] MEDS: DIVALPROEX DR 125 MG TAB PO SCH ×2 (12:20→21:26)
[2021-12-14] MEDS: buPROPion XL 150 MG TAB PO SCH (12:21)
[2021-12-14] MEDS: ASPIRIN 81 MG TAB CHEW PO SCH (12:22)
[2021-12-14] MEDS: IBUPROFEN 800 MG TAB PO SCH (12:25)
[2021-12-14] MEDS: QUEtiapine 25 MG TAB PO SCH ×2 (14:00→21:28)
[2021-12-14] MEDS: LATANOPROST 0.005% OPHTH SOLN 2.5 ML OU SCH (21:26)
[2021-12-14] MEDS: ESCITALOPRAM 10 MG TAB PO SCH (21:27)
--- NOTE | 2021-12-15 09:15 | Progress Note ---
Subjective Date of service: 12/15/21 Principal diagnosis: Dementia w/Behavioral Disturbance Subjective Comment: The patient was seen today. He is lying in bed resting, but easily arouses. He raises up and sits on side of the bed. The patient denies SI/HI or hallucinations. REVIEW OF SYSTEMS Unable to assess MENTAL STATUS General Appearance and Behavior: age appropriate, good eye contact, cooperative, calm, pleasant Cooperation: Cooperative Psychomotor Behavior: within normal limits Mood: confused Affect and affective range: Congruent with stated mood Thought Process: circumstantial Thought Content: none Speech: Normal volume and Regular rate and rhythm Suicidal Ideation: Denies Homicidal Ideation: Denies HI Hallucinations: Denies Delusions: None elicited Impulse Control: Limited Insight and Judgment: Limited Memory: Limited Attention: Attentive Orientation: alert and oriented Diagnoses: Dementia with Behavioral Disturbance Treatment Plan Patient will be admitted for inpatient psychiatric evaluation, medication adjustment and close monitoring The patient's behavior, mood, sleep and appetite will be closely monitored. Patient will be enrolled in individual and group therapeutic sessions and encouraged to attend. Patient will be provided with a safe and structured environment. Patient's physical health needs will be addressed by the Hospitalist. Hospitalist Consulted Labs including CBC, CMP, Lipid profile and Hemoglobin A1C ordered Social Assessment will be completed and the Powder Core Tester will work with patient and family to ensure a suitable and safe disposition Medication adjustment will be made as clinically indicated Continue home medications Usual Wellness [facility]/Preservation: The patient agreed on the treatment plan, understood the risk, benefit, alternative treatment, potential consequence of no treatment, and gave informed consent. Legal Status: Involuntary Reaction to Hospitalization: Accepting Case staffed with Dr. Roberts Medications and Allergies Allergies Allergy/AdvReac Type Severity Reaction Status Date / Time No Known Allergies Allergy Unverified 12/09/21 13:02 Home Medications Medication Instructions Recorded Confirmed Last Taken Type Aspirin [Aspirin BABY CHEW TAB] 81 mg PO QDAY 12/10/21 12/10/21 Unknown History AtorvaSTATin [Lipitor] 40 mg PO QHS 12/10/21 12/10/21 Unknown History Cyanocobalamin [Vitamin B-12] 1,000 mcg PO DAILY 12/10/21 12/10/21 Unknown History Divalproex [DepaKOTE ] 125 mg PO BID 12/10/21 12/10/21 Unknown History Dorzolamide HCl/Timolol Maleat 22.3 mg OU BID 12/10/21 12/10/21 Unknown History [Cosopt Eye Drops] Escitalopram [Lexapro] 10 mg PO QHS 12/10/21 12/10/21 Unknown History Ibuprofen [Motrin 800 MG tab] 800 mg PO DAILY 12/10/21 12/10/21 Unknown History Latanoprost 0.005% [Xalatan 0.005%] 1 drop OU QHS 12/10/21 12/10/21 Unknown History QUEtiapine [SEROquel] 25 mg PO 1400 12/10/21 12/10/21 Unknown History Quetiapine Fumarate [SEROquel] 50 mg PO QHS 12/10/21 12/10/21 Unknown History buPROPion XL [Wellbutrin XL] 150 mg PO QDAY 12/10/21 12/10/21 Unknown History Active Meds: Active Medications Aspirin (Aspirin 81 Mg Tab Chew) 81 mg PO QDAY [facility] Last Admin: 12/14/21 12:22 Dose: 81 mg Atorvastatin Calcium (Atorvastatin 40 Mg Tab) 40 mg PO QHS [facility] Last Admin: 12/14/21 21:27 Dose: 40 mg Bupropion HCl (Bupropion Xl 150 Mg Tab) 150 mg PO QDAY [facility] Last Admin: 12/14/21 12:21 Dose: 150 mg Cyanocobalamin (Cyanocobalamin (Vit B-12) 1000 Mcg Tab) 1,000 mcg PO DAILY [facility] Last Admin: 12/14/21 12:20 Dose: 1,000 mcg Divalproex Sodium (Divalproex Dr 125 Mg Tab) 125 mg PO BID [facility] Last Admin: 12/14/21 21:26 Dose: 125 mg Escitalopram Oxalate (Escitalopram 10 Mg Tab) 10 mg PO QHS [facility] Last Admin: 12/14/21 21:27 Dose: 10 mg Ibuprofen (Ibuprofen 800 Mg Tab) 800 mg PO DAILY [facility] Last Admin: 12/14/21 12:25 Dose: Not Given Latanoprost (Latanoprost 0.005% Ophth Soln 2.5 Ml) 1 drops [facility] Last Admin: 12/14/21 21:26 Dose: 1 drops Miscellaneous Medication (Dorzolamide Hcl/Timolol Maleat [Cosopt Eye Drops]) 22.3 mg OU BID [facility] Quetiapine Fumarate (Quetiapine 25 Mg Tab) 25 mg PO 1400 [facility] Last Admin: 12/14/21 14:00 Dose: Not Given Quetiapine Fumarate (Quetiapine 25 Mg Tab) 50 mg PO QHS [facility] Last Admin: 12/14/21 21:28 Dose: 50 mg Results - Results Labs/Vitals: Laboratory Last Values WBC 5.3 K/mm3 (4.5-11.0) 12/11/21 13:32 RBC 4.77 M/mm3 (3.65-5.03) 12/11/21 13:32 Hgb 14.1 gm/dl (11.8-15.2) 12/11/21 13:32 Hct 42.0 % (35.5-45.6) 12/11/21 13:32 MCV 88 fl (84-94) 12/11/21 13:32 MCH 30 pg (28-32) 12/11/21 13:32 MCHC 34 % (32-34) 12/11/21 13:32 RDW 14.6 % (13.2-15.2) 12/11/21 13:32 Plt Count 199 K/mm3 (140-440) 12/11/21 13:32 Lymph % (Auto) 26.4 % (13.4-35.0) 12/11/21 13:32 [place] % (Auto) 15.8 % (0.0-7.3) H 12/11/21 13:32 Eos % (Auto) 1.1 % (0.0-4.3) 12/11/21 13:32 Baso % (Auto) 0.4 % (0.0-1.8) 12/11/21 13:32 Lymph # (Auto) 1.4 K/mm3 (1.2-5.4) 12/11/21 13:32 [place] # (Auto) 0.8 K/mm3 (0.0-0.8) 12/11/21 13:32 Eos # (Auto) 0.1 K/mm3 (0.0-0.4) 12/11/21 13:32 Baso # (Auto) 0.0 K/mm3 (0.0-0.1) 12/11/21 13:32 Seg Neutrophils % 56.3 % (40.0-70.0) 12/11/21 13:32 Seg Neutrophils # 3.0 K/mm3 (1.8-7.7) 12/11/21 13:32 Sodium 138 mmol/L (137-145) 12/11/21 13:32 Potassium 4.1 mmol/L (3.6-5.0) 12/11/21 13:32 Chloride 101.4 mmol/L (98-107) 12/11/21 13:32 Carbon Dioxide 24 mmol/L (22-30) 12/11/21 13:32 Anion Gap 17 mmol/L 12/11/21 13:32 BUN 21 mg/dL (9-20) H 12/11/21 13:32 Creatinine 1.4 mg/dL (0.8-1.3) H 12/11/21 13:32 Estimated GFR 48 ml/min 12/11/21 13:32 BUN/Creatinine Ratio 15 % 12/11/21 13:32 Glucose 117 mg/dL (75-100) H 12/11/21 13:32 Hemoglobin A1c 6.1 % (4-6) H 12/11/21 13:32 Calcium 8.7 mg/dL (8.4-10.2) 12/11/21 13:32 Total Bilirubin 0.50 mg/dL (0.1-1.2) 12/11/21 13:32 AST 45 units/L (5-40) H 12/11/21 13:32 ALT 50 units/L (7-56) 12/11/21 13:32 Alkaline Phosphatase 69 units/L (35-129) 12/11/21 13:32 Total Protein 6.1 g/dL (6.3-8.2) L 12/11/21 13:32 Albumin 4.0 g/dL (3.9-5) 12/11/21 13:32 Albumin/Globulin Ratio 1.9 % 12/11/21 13:32 Triglycerides 251 mg/dL (2-149) H 12/11/21 13:32 Cholesterol 239 mg/dL (50-199) H 12/11/21 13:32 LDL Cholesterol Direct 158 mg/dL (50-130) H 12/11/21 13:32 HDL Cholesterol 41 mg/dL (40-59) 12/11/21 13:32 Cholesterol/HDL Ratio 5.82 % 12/11/21 13:32 TSH 3.160 mlU/mL (0.270-4.200) 12/11/21 13:32 Hepatitis A IgM Ab Non-reactive (NonReactive) 12/11/21 13:32 Hep Bs Antigen Non-reactive (Negative) 12/11/21 13:32 Hep B Core IgM Ab Non-reactive (NonReactive) 12/11/21 13:32 Hepatitis C Antibody Non-reactive (NonReactive) 12/11/21 13:32 Last Vital Signs Temp 98.2 F 12/14/21 21:01 Pulse 66 12/14/21 21:01 Resp 16 12/14/21 21:01 BP 165/68 12/14/21 21:01 Pulse Ox 92 12/14/21 21:01
[2021-12-15] MEDS: ASPIRIN 81 MG TAB CHEW PO SCH (09:53)
[2021-12-15] MEDS: DIVALPROEX DR 125 MG TAB PO SCH ×2 (09:53→22:13)
[2021-12-15] MEDS: buPROPion XL 150 MG TAB PO SCH (09:53)
[2021-12-15] MEDS: CYANOCOBALAMIN (VIT B-12) 1000 MCG TAB PO SCH (09:53)
[2021-12-15] MEDS: IBUPROFEN 800 MG TAB PO SCH (09:54)
--- NOTE | 2021-12-15 15:21 | Progress Note ---
Assessment and Plan - Patient Problems (1) Vascular dementia with behavior disturbance Current Visit: Yes Status: Acute Plan to address problem: Verbal prompting, verbal redirection, benzodiazepine therapy as clinically indicated (2) Cerebral atherosclerosis Current Visit: Yes Status: Acute Plan to address problem: Risk factor reduction, antiplatelet therapy as clinically indicated. (3) Hypertension Current Visit: Yes Status: Acute Qualifiers: Hypertension type: primary hypertension Qualified Code(s): I10 - Essential (primary) hypertension Plan to address problem: Monitor blood pressure every shift, continue medical management. (4) Hyperlipidemia Current Visit: Yes Status: Acute Qualifiers: Hyperlipidemia type: mixed hyperlipidemia Qualified Code(s): E78.2 - Mixed hyperlipidemia Plan to address problem: Low-cholesterol diet, supportive care. (5) Depression Current Visit: Yes Status: Acute Plan to address problem: Continue medical management, supportive care. (6) Advance care planning Current Visit: Yes Status: Acute Plan to address problem: Disease education conducted, care plan discussed, diagnoses discussed, prognosis discussed, patient is full code, +30 minutes. (7) Preventative health care Current Visit: Yes Status: Acute Plan to address problem: Patient counseled regarding home safety precautions, outpatient follow-up with primary care physician for all age and risk factor appropriate screening test. +30 minutes. History Interval history: 86 YO Female with Vascular Dementia with behavioral disturbance, Cerebral Atherosclerosis, HLD, HTN, MDD admitted to [facility] for psychiatric stabilization. Consult placed by Dr. Iglesias for medical management. Patient seen and evaluated in the recreation room. Patient appears to be at baseline level of cognition and function. No reported nursing events. Hospitalist Physical - Constitutional Vitals: Temp Pulse Resp BP Pulse Ox 98.2 F 66 16 165/68 92 12/14/21 21:01 12/14/21 21:01 12/14/21 21:01 12/14/21 21:01 12/14/21 21:01 General appearance: Present: no acute distress, well-nourished - EENT Eyes: Present: PERRL ENT: hearing decreased - Neck Neck: Present: supple - Respiratory Respiratory effort: normal Respiratory: bilateral: diminished - Cardiovascular Rhythm: regular Heart Sounds: Present: S1 & S2 - Extremities Extremities: no ischemia Peripheral Pulses: within normal limits - Abdominal General gastrointestinal: soft, non-tender, non-distended - Integumentary Integumentary: Present: clear, dry - Psychiatric Psychiatric: cooperative - Neurologic Neurologic: CNII-XII intact Results - Labs CBC & Chem 7: 12/11/21 13:32 12/11/21 13:32 Labs: Laboratory Last Values WBC 5.3 K/mm3 (4.5-11.0) 12/11/21 13:32 RBC 4.77 M/mm3 (3.65-5.03) 12/11/21 13:32 Hgb 14.1 gm/dl (11.8-15.2) 12/11/21 13:32 Hct 42.0 % (35.5-45.6) 12/11/21 13:32 MCV 88 fl (84-94) 12/11/21 13:32 MCH 30 pg (28-32) 12/11/21 13:32 MCHC 34 % (32-34) 12/11/21 13:32 RDW 14.6 % (13.2-15.2) 12/11/21 13:32 Plt Count 199 K/mm3 (140-440) 12/11/21 13:32 Lymph % (Auto) 26.4 % (13.4-35.0) 12/11/21 13:32 [place] % (Auto) 15.8 % (0.0-7.3) H 12/11/21 13:32 Eos % (Auto) 1.1 % (0.0-4.3) 12/11/21 13:32 Baso % (Auto) 0.4 % (0.0-1.8) 12/11/21 13:32 Lymph # (Auto) 1.4 K/mm3 (1.2-5.4) 12/11/21 13:32 [place] # (Auto) 0.8 K/mm3 (0.0-0.8) 12/11/21 13:32 Eos # (Auto) 0.1 K/mm3 (0.0-0.4) 12/11/21 13:32 Baso # (Auto) 0.0 K/mm3 (0.0-0.1) 12/11/21 13:32 Seg Neutrophils % 56.3 % (40.0-70.0) 12/11/21 13:32 Seg Neutrophils # 3.0 K/mm3 (1.8-7.7) 12/11/21 13:32 Sodium 138 mmol/L (137-145) 12/11/21 13:32 Potassium 4.1 mmol/L (3.6-5.0) 12/11/21 13:32 Chloride 101.4 mmol/L (98-107) 12/11/21 13:32 Carbon Dioxide 24 mmol/L (22-30) 12/11/21 13:32 Anion Gap 17 mmol/L 12/11/21 13:32 BUN 21 mg/dL (9-20) H 12/11/21 13:32 Creatinine 1.4 mg/dL (0.8-1.3) H 12/11/21 13:32 Estimated GFR 48 ml/min 12/11/21 13:32 BUN/Creatinine Ratio 15 % 12/11/21 13:32 Glucose 117 mg/dL (75-100) H 12/11/21 13:32 Hemoglobin A1c 6.1 % (4-6) H 12/11/21 13:32 Calcium 8.7 mg/dL (8.4-10.2) 12/11/21 13:32 Total Bilirubin 0.50 mg/dL (0.1-1.2) 12/11/21 13:32 AST 45 units/L (5-40) H 12/11/21 13:32 ALT 50 units/L (7-56) 12/11/21 13:32 Alkaline Phosphatase 69 units/L (35-129) 12/11/21 13:32 Total Protein 6.1 g/dL (6.3-8.2) L 12/11/21 13:32 Albumin 4.0 g/dL (3.9-5) 12/11/21 13:32 Albumin/Globulin Ratio 1.9 % 12/11/21 13:32 Triglycerides 251 mg/dL (2-149) H 12/11/21 13:32 Cholesterol 239 mg/dL (50-199) H 12/11/21 13:32 LDL Cholesterol Direct 158 mg/dL (50-130) H 12/11/21 13:32 HDL Cholesterol 41 mg/dL (40-59) 12/11/21 13:32 Cholesterol/HDL Ratio 5.82 % 12/11/21 13:32 TSH 3.160 mlU/mL (0.270-4.200) 12/11/21 13:32 Hepatitis A IgM Ab Non-reactive (NonReactive) 12/11/21 13:32 Hep Bs Antigen Non-reactive (Negative) 12/11/21 13:32 Hep B Core IgM Ab Non-reactive (NonReactive) 12/11/21 13:32 Hepatitis C Antibody Non-reactive (NonReactive) 12/11/21 13:32 [place]rien/IV: Voiding Method Toilet Active Medications - Current Medications Current Medications: Generic Name Dose Route Start Last Admin Trade Name Joe PRN Reason Stop Dose Admin Aspirin 81 mg 12/11/21 12:00 12/15/21 09:53 Aspirin 81 Mg Tab Chew PO 81 mg QDAY TRICIA Administration Atorvastatin Calcium 40 mg 12/11/21 22:00 12/14/21 21:27 Atorvastatin 40 Mg Tab PO 40 mg QHS TRICIA Administration Bupropion HCl 150 mg 12/11/21 12:00 12/15/21 09:53 Bupropion Xl 150 Mg Tab PO 150 mg QDAY TRICIA Administration Cyanocobalamin 1,000 mcg 12/11/21 12:00 12/15/21 09:53 Cyanocobalamin (Vit B-12) 1000 Mcg Tab PO 1,000 mcg DAILY TRICIA Administration Divalproex Sodium 125 mg 12/11/21 12:00 12/15/21 09:[address] 125 Mg Tab PO 125 mg BID TRICIA Administration Escitalopram Oxalate 10 mg 12/11/21 22:00 12/14/21 21:27 Escitalopram 10 Mg Tab PO 10 mg QHS TRICIA Administration Ibuprofen 800 mg 12/11/21 12:00 12/15/21 09:54 Ibuprofen 800 Mg Tab PO 800 mg DAILY TRICIA Administration Latanoprost 1 drops 12/11/21 22:00 12/14/21 21:26 Latanoprost 0.005% Ophth Soln 2.5 Ml OU 1 drops QHS TRICIA Administration Miscellaneous Medication 22.3 mg 12/11/21 11:15 Dorzolamide Hcl/Timolol Maleat [Cosopt Eye Drops] OU BID TRICIA Quetiapine Fumarate 25 mg 12/11/21 14:00 12/14/21 14:00 Quetiapine 25 Mg Tab PO Not Given 1400 [facility] Quetiapine Fumarate 50 mg 12/11/21 22:00 12/14/21 21:28 Quetiapine 25 Mg Tab PO 50 mg QHS TRICIA Administration
[2021-12-15] MEDS: QUEtiapine 25 MG TAB PO SCH ×2 (15:35→22:13)
[2021-12-15] MEDS: ESCITALOPRAM 10 MG TAB PO SCH (22:13)
[2021-12-15] MEDS: LATANOPROST 0.005% OPHTH SOLN 2.5 ML OU SCH (22:13)
[2021-12-16] MEDS: ASPIRIN 81 MG TAB CHEW PO SCH (09:51)
[2021-12-16] MEDS: buPROPion XL 150 MG TAB PO SCH (09:51)
[2021-12-16] MEDS: CYANOCOBALAMIN (VIT B-12) 1000 MCG TAB PO SCH (09:52)
[2021-12-16] MEDS: DIVALPROEX DR 125 MG TAB PO SCH ×2 (09:52→21:53)
[2021-12-16] MEDS: IBUPROFEN 800 MG TAB PO SCH (09:52)
[2021-12-16] MEDS: QUEtiapine 25 MG TAB PO SCH ×2 (15:03→21:53)
--- NOTE | 2021-12-16 15:23 | Progress Note ---
Subjective Date of service: 12/16/21 Principal diagnosis: Dementia w/Behavioral Disturbance Subjective Comment: The patient was seen today. He is eating breakfast. He says he feels pretty good. The patient denies SI/HI or hallucinations. The patient is being tested for COVID due to symptoms. REVIEW OF SYSTEMS Unable to assess MENTAL STATUS General Appearance and Behavior: age appropriate, good eye contact, cooperative, calm, pleasant Cooperation: Cooperative Psychomotor Behavior: within normal limits Mood: confused Affect and affective range: Congruent with stated mood Thought Process: circumstantial Thought Content: none Speech: Normal volume and Regular rate and rhythm Suicidal Ideation: Denies Homicidal Ideation: Denies HI Hallucinations: Denies Delusions: None elicited Impulse Control: Limited Insight and Judgment: Limited Memory: Limited Attention: Attentive Orientation: alert and oriented Diagnoses: Dementia with Behavioral Disturbance Treatment Plan Patient will be admitted for inpatient psychiatric evaluation, medication adjustment and close monitoring The patient's behavior, mood, sleep and appetite will be closely monitored. Patient will be enrolled in individual and group therapeutic sessions and encouraged to attend. Patient will be provided with a safe and structured environment. Patient's physical health needs will be addressed by the Hospitalist. Hospitalist Consulted Labs including CBC, CMP, Lipid profile and Hemoglobin A1C ordered Social Assessment will be completed and the Cytotechnologist will work with patient and family to ensure a suitable and safe disposition Medication adjustment will be made as clinically indicated Continue home medications Usual Wellness [facility]/Preservation: The patient agreed on the treatment plan, understood the risk, benefit, alternative treatment, potential consequence of no treatment, and gave informed consent. Legal Status: Involuntary Reaction to Hospitalization: Accepting Case staffed with Dr. Roberts Medications and Allergies Allergies Allergy/AdvReac Type Severity Reaction Status Date / Time No Known Allergies Allergy Unverified 12/09/21 13:02 Home Medications Medication Instructions Recorded Confirmed Last Taken Type Aspirin [Aspirin BABY CHEW TAB] 81 mg PO QDAY 12/10/21 12/10/21 Unknown History AtorvaSTATin [Lipitor] 40 mg PO QHS 12/10/21 12/10/21 Unknown History Cyanocobalamin [Vitamin B-12] 1,000 mcg PO DAILY 12/10/21 12/10/[address] [DepaKOTE DR] 125 mg PO BID 12/10/21 12/10/21 Unknown History Dorzolamide HCl/Timolol Maleat 22.3 mg OU BID 12/10/21 12/10/21 Unknown History [Cosopt Eye Drops] Escitalopram [Lexapro] 10 mg PO QHS 12/10/21 12/10/21 Unknown History Ibuprofen [Motrin 800 MG tab] 800 mg PO DAILY 12/10/21 12/10/21 Unknown History Latanoprost 0.005% [Xalatan 0.005%] 1 drop OU QHS 12/10/21 12/10/21 Unknown History QUEtiapine [SEROquel] 25 mg PO 1400 12/10/21 12/10/21 Unknown History Quetiapine Fumarate [SEROquel] 50 mg PO QHS 12/10/21 12/10/21 Unknown History buPROPion XL [Wellbutrin XL] 150 mg PO QDAY 12/10/21 12/10/21 Unknown History Active Meds: Active Medications Aspirin (Aspirin 81 Mg Tab Chew) 81 mg PO QDAY [facility] Last Admin: 12/16/21 09:51 Dose: 81 mg Atorvastatin Calcium (Atorvastatin 40 Mg Tab) 40 mg PO QHS [facility] Last Admin: 12/15/21 22:17 Dose: 40 mg Bupropion HCl (Bupropion Xl 150 Mg Tab) 150 mg PO QDAY [facility] Last Admin: 12/16/21 09:51 Dose: 150 mg Cyanocobalamin (Cyanocobalamin (Vit B-12) 1000 Mcg Tab) 1,000 mcg PO DAILY [facility] Last Admin: 12/16/21 09:52 Dose: 1,000 mcg Divalproex Sodium (Divalproex Dr 125 Mg Tab) 125 mg PO BID [facility] Last Admin: 12/16/21 09:52 Dose: 125 mg Escitalopram Oxalate (Escitalopram 10 Mg Tab) 10 mg PO QHS [facility] Last Admin: 12/15/21 22:13 Dose: 10 mg Ibuprofen (Ibuprofen 800 Mg Tab) 800 mg PO DAILY [facility] Last Admin: 12/16/21 09:52 Dose: 800 mg Latanoprost (Latanoprost 0.005% Ophth Soln 2.5 Ml) 1 drops OU QHS [facility] Last Admin: 12/15/21 22:13 Dose: 1 drops Miscellaneous Medication (Dorzolamide Hcl/Timolol Maleat [Cosopt Eye Drops]) 22.3 mg OU BID [facility] Quetiapine Fumarate (Quetiapine 25 Mg Tab) 25 mg PO 1400 [facility] Last Admin: 12/16/21 15:03 Dose: 25 mg Quetiapine Fumarate (Quetiapine 25 Mg Tab) 50 mg PO QHS [facility] Last Admin: 12/15/21 22:13 Dose: 50 mg Results - Results Labs/Vitals: Laboratory Last Values WBC 5.3 K/mm3 (4.5-11.0) 12/11/21 13:32 RBC 4.77 M/mm3 (3.65-5.03) 12/11/21 13:32 Hgb 14.1 gm/dl (11.8-15.2) 12/11/21 13:32 Hct 42.0 % (35.5-45.6) 12/11/21 13:32 MCV 88 fl (84-94) 12/11/21 13:32 MCH 30 pg (28-32) 12/11/21 13:32 MCHC 34 % (32-34) 12/11/21 13:32 RDW 14.6 % (13.2-15.2) 12/11/21 13:32 Plt Count 199 K/mm3 (140-440) 12/11/21 13:32 Lymph % (Auto) 26.4 % (13.4-35.0) 12/11/21 13:32 [place] % (Auto) 15.8 % (0.0-7.3) H 12/11/21 13:32 Eos % (Auto) 1.1 % (0.0-4.3) 12/11/21 13:32 Baso % (Auto) 0.4 % (0.0-1.8) 12/11/21 13:32 Lymph # (Auto) 1.4 K/mm3 (1.2-5.4) 12/11/21 13:32 [place] # (Auto) 0.8 K/mm3 (0.0-0.8) 12/11/21 13:32 Eos # (Auto) 0.1 K/mm3 (0.0-0.4) 12/11/21 13:32 Baso # (Auto) 0.0 K/mm3 (0.0-0.1) 12/11/21 13:32 Seg Neutrophils % 56.3 % (40.0-70.0) 12/11/21 13:32 Seg Neutrophils # 3.0 K/mm3 (1.8-7.7) 12/11/21 13:32 Sodium 138 mmol/L (137-145) 12/11/21 13:32 Potassium 4.1 mmol/L (3.6-5.0) 12/11/21 13:32 Chloride 101.4 mmol/L (98-107) 12/11/21 13:32 Carbon Dioxide 24 mmol/L (22-30) 12/11/21 13:32 Anion Gap 17 mmol/L 12/11/21 13:32 BUN 21 mg/dL (9-20) H 12/11/21 13:32 Creatinine 1.4 mg/dL (0.8-1.3) H 12/11/21 13:32 Estimated GFR 48 ml/min 12/11/21 13:32 BUN/Creatinine Ratio 15 % 12/11/21 13:32 Glucose 117 mg/dL (75-100) H 12/11/21 13:32 Hemoglobin A1c 6.1 % (4-6) H 12/11/21 13:32 Calcium 8.7 mg/dL (8.4-10.2) 12/11/21 13:32 Total Bilirubin 0.50 mg/dL (0.1-1.2) 12/11/21 13:32 AST 45 units/L (5-40) H 12/11/21 13:32 ALT 50 units/L (7-56) 12/11/21 13:32 Alkaline Phosphatase 69 units/L (35-129) 12/11/21 13:32 Total Protein 6.1 g/dL (6.3-8.2) L 12/11/21 13:32 Albumin 4.0 g/dL (3.9-5) 12/11/21 13:32 Albumin/Globulin Ratio 1.9 % 12/11/21 13:32 Triglycerides 251 mg/dL (2-149) H 12/11/21 13:32 Cholesterol 239 mg/dL (50-199) H 12/11/21 13:32 LDL Cholesterol Direct 158 mg/dL (50-130) H 12/11/21 13:32 HDL Cholesterol 41 mg/dL (40-59) 12/11/21 13:32 Cholesterol/HDL Ratio 5.82 % 12/11/21 13:32 TSH 3.160 mlU/mL (0.270-4.200) 12/11/21 13:32 Coronavirus (PCR) Positive (Negative) A 12/16/21 08:35 Hepatitis A IgM Ab Non-reactive (NonReactive) 12/11/21 13:32 Hep Bs Antigen Non-reactive (Negative) 12/11/21 13:32 Hep B Core IgM Ab Non-reactive (NonReactive) 12/11/21 13:32 Hepatitis C Antibody Non-reactive (NonReactive) 12/11/21 13:32 Last Vital Signs Temp 98.2 F 12/16/21 07:35 Pulse 62 12/16/21 08:17 Resp 18 12/16/21 07:35 BP 142/76 12/16/21 08:17 Pulse Ox 95 12/16/21 08:17
[2021-12-16] MEDS: LATANOPROST 0.005% OPHTH SOLN 2.5 ML OU SCH (21:53)
[2021-12-16] MEDS: TIMOLOL 0.5% OPHTH SOLN 5 ML OU SCH (21:53)
[2021-12-16] MEDS: ESCITALOPRAM 10 MG TAB PO SCH (21:53)
--- NOTE | 2021-12-17 08:20 | Progress Note ---
Subjective Date of service: 12/17/21 Principal diagnosis: Dementia w/Behavioral Disturbance Subjective Comment: The patient was seen today. He is pleasant and polite. He is lying in bed awake. He greats me with "good morning." He says he feels tired. The patient denies SI/HI. He says "Lord, no. I have no reason to do any of that." He denies hallucinations. REVIEW OF SYSTEMS Unable to assess MENTAL STATUS General Appearance and Behavior: age appropriate, good eye contact, cooperative, calm, pleasant Cooperation: Cooperative Psychomotor Behavior: within normal limits Mood: confused Affect and affective range: Congruent with stated mood Thought Process: circumstantial Thought Content: none Speech: Normal volume and Regular rate and rhythm Suicidal Ideation: Denies Homicidal Ideation: Denies HI Hallucinations: Denies Delusions: None elicited Impulse Control: Limited Insight and Judgment: Limited Memory: Limited Attention: Attentive Orientation: alert and oriented Diagnoses: Dementia with Behavioral Disturbance Treatment Plan Patient will be admitted for inpatient psychiatric evaluation, medication adjustment and close monitoring The patient's behavior, mood, sleep and appetite will be closely monitored. Patient will be enrolled in individual and group therapeutic sessions and encouraged to attend. Patient will be provided with a safe and structured environment. Patient's physical health needs will be addressed by the Hospitalist. Hospitalist Consulted Labs including CBC, CMP, Lipid profile and Hemoglobin A1C ordered Social Assessment will be completed and the Fluorescent Solution Mixer will work with patient and family to ensure a suitable and safe disposition Medication adjustment will be made as clinically indicated Continue home medications Usual Wellness [facility]/Preservation: The patient agreed on the treatment plan, understood the risk, benefit, alternative treatment, potential consequence of no treatment, and gave informed consent. Legal Status: Involuntary Reaction to Hospitalization: Accepting Case staffed with Dr. Roberts Medications and Allergies Allergies Allergy/AdvReac Type Severity Reaction Status Date / Time No Known Allergies Allergy Unverified 12/09/21 13:02 Home Medications Medication Instructions Recorded Confirmed Last Taken Type Aspirin [Aspirin BABY CHEW TAB] 81 mg PO QDAY 12/10/21 12/10/21 Unknown History AtorvaSTATin [Lipitor] 40 mg PO QHS 12/10/21 12/10/21 Unknown History Cyanocobalamin [Vitamin B-12] 1,000 mcg PO DAILY 12/10/21 12/10/21 Unknown History Divalproex [DepaKOTE ] 125 mg PO BID 12/10/21 12/10/21 Unknown History Dorzolamide HCl/Timolol Maleat 22.3 mg OU BID 12/10/21 12/10/21 Unknown History [Cosopt Eye Drops] Escitalopram [Lexapro] 10 mg PO QHS 12/10/21 12/10/21 Unknown History Ibuprofen [Motrin 800 MG tab] 800 mg PO DAILY 12/10/21 12/10/21 Unknown History Latanoprost 0.005% [Xalatan 0.005%] 1 drop OU QHS 12/10/21 12/10/21 Unknown History QUEtiapine [SEROquel] 25 mg PO 1400 12/10/21 12/10/21 Unknown History Quetiapine Fumarate [SEROquel] 50 mg PO QHS 12/10/21 12/10/21 Unknown History buPROPion XL [Wellbutrin XL] 150 mg PO QDAY 12/10/21 12/10/21 Unknown History Active Meds: Active Medications Aspirin (Aspirin 81 Mg Tab Chew) 81 mg PO QDAY [facility] Last Admin: 12/16/21 09:51 Dose: 81 mg Atorvastatin Calcium (Atorvastatin 40 Mg Tab) 40 mg PO QHS [facility] Last Admin: 12/16/21 21:53 Dose: 40 mg Bupropion HCl (Bupropion Xl 150 Mg Tab) 150 mg PO QDAY [facility] Last Admin: 12/16/21 09:51 Dose: 150 mg Cyanocobalamin (Cyanocobalamin (Vit B-12) 1000 Mcg Tab) 1,000 mcg PO DAILY [facility] Last Admin: 12/16/21 09:52 Dose: 1,000 mcg Divalproex Sodium (Divalproex Dr 125 Mg Tab) 125 mg PO BID [facility] Last Admin: 12/16/21 21:53 Dose: 125 mg Escitalopram Oxalate (Escitalopram 10 Mg Tab) 10 mg PO QHS [facility] Last Admin: 12/16/21 21:53 Dose: 10 mg Ibuprofen (Ibuprofen 800 Mg Tab) 800 mg PO DAILY [facility] Last Admin: 12/16/21 09:52 Dose: 800 mg Latanoprost (Latanoprost 0.005% Ophth Soln 2.5 Ml) 1 drops OU QHS [facility] Last Admin: 12/16/21 21:53 Dose: 1 drops Quetiapine Fumarate (Quetiapine 25 Mg Tab) 25 mg PO 1400 [facility] Last Admin: 12/16/21 15:03 Dose: 25 mg Quetiapine Fumarate (Quetiapine 25 Mg Tab) 50 mg PO QHS [facility] Last Admin: 12/16/21 21:53 Dose: 50 mg Timolol Maleate (Timolol 0.5% Ophth Soln 5 Ml) 1 drops OU BID [facility] Last Admin: 12/16/21 21:53 Dose: 1 drops Results - Results Labs/Vitals: Laboratory Last Values WBC 5.3 K/mm3 (4.5-11.0) 12/11/21 13:32 RBC 4.77 M/mm3 (3.65-5.03) 12/11/21 13:32 Hgb 14.1 gm/dl (11.8-15.2) 12/11/21 13:32 Hct 42.0 % (35.5-45.6) 12/11/21 13:32 MCV 88 fl (84-94) 12/11/21 13:32 MCH 30 pg (28-32) 12/11/21 13:32 MCHC 34 % (32-34) 12/11/21 13:32 RDW 14.6 % (13.2-15.2) 12/11/21 13:32 Plt Count 199 K/mm3 (140-440) 12/11/21 13:32 Lymph % (Auto) 26.4 % (13.4-35.0) 12/11/21 13:32 [place] % (Auto) 15.8 % (0.0-7.3) H 12/11/21 13:32 Eos % (Auto) 1.1 % (0.0-4.3) 12/11/21 13:32 Baso % (Auto) 0.4 % (0.0-1.8) 12/11/21 13:32 Lymph # (Auto) 1.4 K/mm3 (1.2-5.4) 12/11/21 13:32 [place] # (Auto) 0.8 K/mm3 (0.0-0.8) 12/11/21 13:32 Eos # (Auto) 0.1 K/mm3 (0.0-0.4) 12/11/21 13:32 Baso # (Auto) 0.0 K/mm3 (0.0-0.1) 12/11/21 13:32 Seg Neutrophils % 56.3 % (40.0-70.0) 12/11/21 13:32 Seg Neutrophils # 3.0 K/mm3 (1.8-7.7) 12/11/21 13:32 Sodium 138 mmol/L (137-145) 12/11/21 13:32 Potassium 4.1 mmol/L (3.6-5.0) 12/11/21 13:32 Chloride 101.4 mmol/L (98-107) 12/11/21 13:32 Carbon Dioxide 24 mmol/L (22-30) 12/11/21 13:32 Anion Gap 17 mmol/L 12/11/21 13:32 BUN 21 mg/dL (9-20) H 12/11/21 13:32 Creatinine 1.4 mg/dL (0.8-1.3) H 12/11/21 13:32 Estimated GFR 48 ml/min 12/11/21 13:32 BUN/Creatinine Ratio 15 % 12/11/21 13:32 Glucose 117 mg/dL (75-100) H 12/11/21 13:32 Hemoglobin A1c 6.1 % (4-6) H 12/11/21 13:32 Calcium 8.7 mg/dL (8.4-10.2) 12/11/21 13:32 Total Bilirubin 0.50 mg/dL (0.1-1.2) 12/11/21 13:32 AST 45 units/L (5-40) H 12/11/21 13:32 ALT 50 units/L (7-56) 12/11/21 13:32 Alkaline Phosphatase 69 units/L (35-129) 12/11/21 13:32 Total Protein 6.1 g/dL (6.3-8.2) L 12/11/21 13:32 Albumin 4.0 g/dL (3.9-5) 12/11/21 13:32 Albumin/Globulin Ratio 1.9 % 12/11/21 13:32 Triglycerides 251 mg/dL (2-149) H 12/11/21 13:32 Cholesterol 239 mg/dL (50-199) H 12/11/21 13:32 LDL Cholesterol Direct 158 mg/dL (50-130) H 12/11/21 13:32 HDL Cholesterol 41 mg/dL (40-59) 12/11/21 13:32 Cholesterol/HDL Ratio 5.82 % 12/11/21 13:32 TSH 3.160 mlU/mL (0.270-4.200) 12/11/21 13:32 Coronavirus (PCR) Positive (Negative) A 12/16/21 08:35 Hepatitis A IgM Ab Non-reactive (NonReactive) 12/11/21 13:32 Hep Bs Antigen Non-reactive (Negative) 12/11/21 13:32 Hep B Core IgM Ab Non-reactive (NonReactive) 12/11/21 13:32 Hepatitis C Antibody Non-reactive (NonReactive) 12/11/21 13:32 Last Vital Signs Temp 98.4 F 12/16/21 19:51 Pulse 73 12/16/21 21:45 Resp 20 12/16/21 21:45 BP 121/79 12/16/21 21:45 Pulse Ox 97 12/16/21 21:45
[2021-12-17] MEDS: TIMOLOL 0.5% OPHTH SOLN 5 ML OU SCH ×2 (13:33→22:30)
[2021-12-17] MEDS: CYANOCOBALAMIN (VIT B-12) 1000 MCG TAB PO SCH (13:34)
[2021-12-17] MEDS: DIVALPROEX DR 125 MG TAB PO SCH ×2 (14:21→22:30)
[2021-12-17] MEDS: buPROPion XL 150 MG TAB PO SCH (14:21)
[2021-12-17] MEDS: ASPIRIN 81 MG TAB CHEW PO SCH (14:21)
[2021-12-17] MEDS: QUEtiapine 25 MG TAB PO SCH ×2 (14:25→22:31)
[2021-12-17] MEDS: IBUPROFEN 800 MG TAB PO SCH (14:25)
[2021-12-17] MEDS: ESCITALOPRAM 10 MG TAB PO SCH (22:30)
[2021-12-17] MEDS: LATANOPROST 0.005% OPHTH SOLN 2.5 ML OU SCH (22:32)
[2021-12-18] MEDS: buPROPion XL 150 MG TAB PO SCH (10:00)
[2021-12-18] MEDS: IBUPROFEN 800 MG TAB PO SCH (10:00)
[2021-12-18] MEDS: TIMOLOL 0.5% OPHTH SOLN 5 ML OU SCH ×2 (10:00→21:00)
[2021-12-18] MEDS: DIVALPROEX DR 125 MG TAB PO SCH ×2 (10:00→20:59)
[2021-12-18] MEDS: ASPIRIN 81 MG TAB CHEW PO SCH (10:00)
[2021-12-18] MEDS: CYANOCOBALAMIN (VIT B-12) 1000 MCG TAB PO SCH (10:00)
--- NOTE | 2021-12-18 10:07 | Progress Note ---
Subjective Date of service: 12/18/21 Principal diagnosis: Dementia w/Behavioral Disturbance Subjective Comment: 12/18: the patient was seen in his room. He is calm. He states he is ok. Pt is hard of hearing and blind; unable to state his name. 12/17:The patient was seen today. He is pleasant and polite. He is lying in bed awake. He greats me with "good morning." He says he feels tired. The patient denies SI/HI. He says "Lord, no. I have no reason to do any of that." He denies hallucinations. 12/16:The patient was seen today. He is eating breakfast. He says he feels pretty good. The patient denies SI/HI or hallucinations. The patient is being tested for COVID due to symptoms. 12/15:The patient was seen today. He is lying in bed resting, but easily arouses. He raises up and sits on side of the bed. The patient denies SI/HI or hallucinations. 12/14:The patient was seen today. He is lying in bed resting, but easily arouses. He is calm, and cooperative. He says he feels pretty good today. He says he slept well. The patient denies SI/HI or hallucinations. The patient denied any of incidents that got him admitted into the hospital. 12/13:The patient was seen today. He is calm, and cooperative. The patient is sleeping in the dayroom. He easily arouses, but says he's tired. He says he slept well. The patient denies SI/HI or hallucinations. 12/12:The patient was seen today. He is calm, and cooperative. The patient is pleasant. He says he's doing fine. He denies SI/HI. He says "heck no" when asked. He says his appetite is good. I ask him about why he came in. He says "I didn't know none of that." REVIEW OF SYSTEMS Unable to assess MENTAL STATUS Unable to assess Diagnoses: Dementia with Behavioral Disturbance Treatment Plan Patient will be admitted for inpatient psychiatric evaluation, medication adjustment and close monitoring The patient's behavior, mood, sleep and appetite will be closely monitored. Patient will be enrolled in individual and group therapeutic sessions and encouraged to attend. Patient will be provided with a safe and structured environment. Patient's physical health needs will be addressed by the Hospitalist. Hospitalist Consulted Labs including CBC, CMP, Lipid profile and Hemoglobin A1C ordered Social Assessment will be completed and the Orthodontic Assistant will work with patient and family to ensure a suitable and safe disposition Medication adjustment will be made as clinically indicated Continue home medications Usual Wellness Presybeterian/Preservation: The patient agreed on the treatment plan, understood the risk, benefit, alternative treatment, potential consequence of no treatment, and gave informed consent. Legal Status: Involuntary Reaction to Hospitalization: Accepting Case staffed with Dr. Roberts Medications and Allergies Medications and Allergies Allergies Allergy/AdvReac Type Severity Reaction Status Date / Time No Known Allergies Allergy Unverified 12/09/21 13:02 Home Medications Medication Instructions Recorded Confirmed Last Taken Type Aspirin [Aspirin BABY CHEW TAB] 81 mg PO QDAY 12/10/21 12/10/21 Unknown History AtorvaSTATin [Lipitor] 40 mg PO QHS 12/10/21 12/10/21 Unknown History Cyanocobalamin [Vitamin B-12] 1,000 mcg PO DAILY 12/10/21 12/10/21 Unknown History Divalproex [Gregor TOLENTINO] 125 mg PO BID 12/10/21 12/10/21 Unknown History Dorzolamide HCl/Timolol Maleat 22.3 mg OU BID 12/10/21 12/10/21 Unknown History [Cosopt Eye Drops] Escitalopram [Lexapro] 10 mg PO QHS 12/10/21 12/10/21 Unknown History Ibuprofen [Motrin 800 MG tab] 800 mg PO DAILY 12/10/21 12/10/21 Unknown History Latanoprost 0.005% [Xalatan 0.005%] 1 drop OU QHS 12/10/21 12/10/21 Unknown History QUEtiapine [SEROquel] 25 mg PO 1400 12/10/21 12/10/21 Unknown History Quetiapine Fumarate [SEROquel] 50 mg PO QHS 12/10/21 12/10/21 Unknown History buPROPion XL [Wellbutrin XL] 150 mg PO QDAY 12/10/21 12/10/21 Unknown History Active Meds: Active Medications Aspirin (Aspirin 81 Mg Tab Chew) 81 mg PO QDAY [facility] Last Admin: 12/17/21 14:21 Dose: 81 mg Atorvastatin Calcium (Atorvastatin 40 Mg Tab) 40 mg PO QHS [facility] Last Admin: 12/17/21 22:31 Dose: 40 mg Bupropion HCl (Bupropion Xl 150 Mg Tab) 150 mg PO QDAY [facility] Last Admin: 12/17/21 14:21 Dose: 150 mg Cyanocobalamin (Cyanocobalamin (Vit B-12) 1000 Mcg Tab) 1,000 mcg PO DAILY [facility] Last Admin: 12/17/21 13:34 Dose: 1,000 mcg Divalproex Sodium (Divalproex Dr 125 Mg Tab) 125 mg PO BID [facility] Last Admin: 12/17/21 22:30 Dose: 125 mg Escitalopram Oxalate (Escitalopram 10 Mg Tab) 10 mg PO QHS [facility] Last Admin: 12/17/21 22:30 Dose: 10 mg Ibuprofen (Ibuprofen 800 Mg Tab) 800 mg PO DAILY [facility] Last Admin: 12/17/21 14:25 Dose: 800 mg Latanoprost (Latanoprost 0.005% Ophth Soln 2.5 Ml) 1 drops OU QHS [facility] Last Admin: 12/17/21 22:32 Dose: 1 drops Quetiapine Fumarate (Quetiapine 25 Mg Tab) 25 mg PO 1400 [facility] Last Admin: 12/17/21 14:25 Dose: 25 mg Quetiapine Fumarate (Quetiapine 25 Mg Tab) 50 mg PO QHS [facility] Last Admin: 12/17/21 22:31 Dose: 50 mg Timolol Maleate (Timolol 0.5% Ophth Soln 5 Ml) 1 drops OU BID [facility] Last Admin: 12/17/21 22:30 Dose: 1 drops Results - Results Labs/Vitals: Laboratory Last Values WBC 5.3 K/mm3 (4.5-11.0) 12/11/21 13:32 RBC 4.77 M/mm3 (3.65-5.03) 12/11/21 13:32 Hgb 14.1 gm/dl (11.8-15.2) 12/11/21 13:32 Hct 42.0 % (35.5-45.6) 12/11/21 13:32 MCV 88 fl (84-94) 12/11/21 13:32 MCH 30 pg (28-32) 12/11/21 13:32 MCHC 34 % (32-34) 12/11/21 13:32 RDW 14.6 % (13.2-15.2) 12/11/21 13:32 Plt Count 199 K/mm3 (140-440) 12/11/21 13:32 Lymph % (Auto) 26.4 % (13.4-35.0) 12/11/21 13:32 [place] % (Auto) 15.8 % (0.0-7.3) H 12/11/21 13:32 Eos % (Auto) 1.1 % (0.0-4.3) 12/11/21 13:32 Baso % (Auto) 0.4 % (0.0-1.8) 12/11/21 13:32 Lymph # (Auto) 1.4 K/mm3 (1.2-5.4) 12/11/21 13:32 [place] # (Auto) 0.8 K/mm3 (0.0-0.8) 12/11/21 13:32 Eos # (Auto) 0.1 K/mm3 (0.0-0.4) 12/11/21 13:32 Baso # (Auto) 0.0 K/mm3 (0.0-0.1) 12/11/21 13:32 Seg Neutrophils % 56.3 % (40.0-70.0) 12/11/21 13:32 Seg Neutrophils # 3.0 K/mm3 (1.8-7.7) 12/11/21 13:32 Sodium 138 mmol/L (137-145) 12/11/21 13:32 Potassium 4.1 mmol/L (3.6-5.0) 12/11/21 13:32 Chloride 101.4 mmol/L (98-107) 12/11/21 13:32 Carbon Dioxide 24 mmol/L (22-30) 12/11/21 13:32 Anion Gap 17 mmol/L 12/11/21 13:32 BUN 21 mg/dL (9-20) H 12/11/21 13:32 Creatinine 1.4 mg/dL (0.8-1.3) H 12/11/21 13:32 Estimated GFR 48 ml/min 12/11/21 13:32 BUN/Creatinine Ratio 15 % 12/11/21 13:32 Glucose 117 mg/dL (75-100) H 12/11/21 13:32 Hemoglobin A1c 6.1 % (4-6) H 12/11/21 13:32 Calcium 8.7 mg/dL (8.4-10.2) 12/11/21 13:32 Total Bilirubin 0.50 mg/dL (0.1-1.2) 12/11/21 13:32 AST 45 units/L (5-40) H 12/11/21 13:32 ALT 50 units/L (7-56) 12/11/21 13:32 Alkaline Phosphatase 69 units/L (35-129) 12/11/21 13:32 Total Protein 6.1 g/dL (6.3-8.2) L 12/11/21 13:32 Albumin 4.0 g/dL (3.9-5) 12/11/21 13:32 Albumin/Globulin Ratio 1.9 % 12/11/21 13:32 Triglycerides 251 mg/dL (2-149) H 12/11/21 13:32 Cholesterol 239 mg/dL (50-199) H 12/11/21 13:32 LDL Cholesterol Direct 158 mg/dL (50-130) H 12/11/21 13:32 HDL Cholesterol 41 mg/dL (40-59) 12/11/21 13:32 Cholesterol/HDL Ratio 5.82 % 12/11/21 13:32 TSH 3.160 mlU/mL (0.270-4.200) 12/11/21 13:32 Coronavirus (PCR) Positive (Negative) A 12/16/21 08:35 Hepatitis A IgM Ab Non-reactive (NonReactive) 12/11/21 13:32 Hep Bs Antigen Non-reactive (Negative) 12/11/21 13:32 Hep B Core IgM Ab Non-reactive (NonReactive) 12/11/21 13:32 Hepatitis C Antibody Non-reactive (NonReactive) 12/11/21 13:32 Last Vital Signs Temp 97.3 F L 12/17/21 22:18 Pulse 54 L 12/17/21 22:18 Resp 16 12/17/21 22:18 BP 134/69 12/17/21 22:18 Pulse Ox 90 12/17/21 22:18
[2021-12-18] MEDS: QUEtiapine 25 MG TAB PO SCH ×2 (13:40→21:00)
[2021-12-18] MEDS ORDERED: CHOLECALCIFEROL (VIT D3) 400 UNIT TAB PO SCH (15:00)
--- NOTE | 2021-12-18 15:23 | Progress Note ---
Assessment and Plan - Patient Problems (1) Vascular dementia with behavior disturbance Current Visit: Yes Status: Acute Plan to address problem: Verbal prompting, verbal redirection, benzodiazepine therapy as clinically indicated (2) Cerebral atherosclerosis Current Visit: Yes Status: Acute Plan to address problem: Risk factor reduction, antiplatelet therapy as clinically indicated. (3) Hypertension Current Visit: Yes Status: Acute Qualifiers: Hypertension type: primary hypertension Qualified Code(s): I10 - Essential (primary) hypertension Plan to address problem: Monitor blood pressure every shift, continue medical management. (4) Hyperlipidemia Current Visit: Yes Status: Acute Qualifiers: Hyperlipidemia type: mixed hyperlipidemia Qualified Code(s): E78.2 - Mixed hyperlipidemia Plan to address problem: Low-cholesterol diet, supportive care. (5) Depression Current Visit: Yes Status: Acute Plan to address problem: Continue medical management, supportive care. (6) Advance care planning Current Visit: Yes Status: Acute Plan to address problem: Disease education conducted, care plan discussed, diagnoses discussed, prognosis discussed, patient is full code, +30 minutes. (7) Preventative health care Current Visit: Yes Status: Acute Plan to address problem: Patient counseled regarding home safety precautions, outpatient follow-up with primary care physician for all age and risk factor appropriate screening test. +30 minutes. History Interval history: 86 YO Female with Vascular Dementia with behavioral disturbance, Cerebral Atherosclerosis, HLD, HTN, MDD admitted to [facility] for psychiatric stabilization. Consult placed by Dr. Iglesias for medical management. Patient seen and evaluated in the recreation room. Patient appears to be at baseline level of cognition and function. No reported nursing events. Hospitalist Physical - Constitutional Vitals: Temp Pulse Resp BP Pulse Ox 97.7 F 56 L 18 164/72 92 12/18/21 09:44 12/18/21 09:44 12/18/21 09:44 12/18/21 09:44 12/18/21 09:44 General appearance: Present: no acute distress, well-nourished - EENT Eyes: Present: PERRL ENT: hearing decreased - Neck Neck: Present: supple - Respiratory Respiratory effort: normal Respiratory: bilateral: diminished - Cardiovascular Rhythm: regular Heart Sounds: Present: S1 & S2 - Extremities Extremities: no ischemia Peripheral Pulses: within normal limits - Abdominal General gastrointestinal: soft, non-tender, non-distended - Integumentary Integumentary: Present: clear, dry - Psychiatric Psychiatric: cooperative - Neurologic Neurologic: CNII-XII intact Results - Labs CBC & Chem 7: 12/11/21 13:32 12/11/21 13:32 Labs: Laboratory Last Values WBC 5.3 K/mm3 (4.5-11.0) 12/11/21 13:32 RBC 4.77 M/mm3 (3.65-5.03) 12/11/21 13:32 Hgb 14.1 gm/dl (11.8-15.2) 12/11/21 13:32 Hct 42.0 % (35.5-45.6) 12/11/21 13:32 MCV 88 fl (84-94) 12/11/21 13:32 MCH 30 pg (28-32) 12/11/21 13:32 MCHC 34 % (32-34) 12/11/21 13:32 RDW 14.6 % (13.2-15.2) 12/11/21 13:32 Plt Count 199 K/mm3 (140-440) 12/11/21 13:32 Lymph % (Auto) 26.4 % (13.4-35.0) 12/11/21 13:32 [place] % (Auto) 15.8 % (0.0-7.3) H 12/11/21 13:32 Eos % (Auto) 1.1 % (0.0-4.3) 12/11/21 13:32 Baso % (Auto) 0.4 % (0.0-1.8) 12/11/21 13:32 Lymph # (Auto) 1.4 K/mm3 (1.2-5.4) 12/11/21 13:32 [place] # (Auto) 0.8 K/mm3 (0.0-0.8) 12/11/21 13:32 Eos # (Auto) 0.1 K/mm3 (0.0-0.4) 12/11/21 13:32 Baso # (Auto) 0.0 K/mm3 (0.0-0.1) 12/11/21 13:32 Seg Neutrophils % 56.3 % (40.0-70.0) 12/11/21 13:32 Seg Neutrophils # 3.0 K/mm3 (1.8-7.7) 12/11/21 13:32 Sodium 138 mmol/L (137-145) 12/11/21 13:32 Potassium 4.1 mmol/L (3.6-5.0) 12/11/21 13:32 Chloride 101.4 mmol/L (98-107) 12/11/21 13:32 Carbon Dioxide 24 mmol/L (22-30) 12/11/21 13:32 Anion Gap 17 mmol/L 12/11/21 13:32 BUN 21 mg/dL (9-20) H 12/11/21 13:32 Creatinine 1.4 mg/dL (0.8-1.3) H 12/11/21 13:32 Estimated GFR 48 ml/min 12/11/21 13:32 BUN/Creatinine Ratio 15 % 12/11/21 13:32 Glucose 117 mg/dL (75-100) H 12/11/21 13:32 Hemoglobin A1c 6.1 % (4-6) H 12/11/21 13:32 Calcium 8.7 mg/dL (8.4-10.2) 12/11/21 13:32 Total Bilirubin 0.50 mg/dL (0.1-1.2) 12/11/21 13:32 AST 45 units/L (5-40) H 12/11/21 13:32 ALT 50 units/L (7-56) 12/11/21 13:32 Alkaline Phosphatase 69 units/L (35-129) 12/11/21 13:32 Total Protein 6.1 g/dL (6.3-8.2) L 12/11/21 13:32 Albumin 4.0 g/dL (3.9-5) 12/11/21 13:32 Albumin/Globulin Ratio 1.9 % 12/11/21 13:32 Triglycerides 251 mg/dL (2-149) H 12/11/21 13:32 Cholesterol 239 mg/dL (50-199) H 12/11/21 13:32 LDL Cholesterol Direct 158 mg/dL (50-130) H 12/11/21 13:32 HDL Cholesterol 41 mg/dL (40-59) 12/11/21 13:32 Cholesterol/HDL Ratio 5.82 % 12/11/21 13:32 TSH 3.160 mlU/mL (0.270-4.200) 12/11/21 13:32 Coronavirus (PCR) Positive (Negative) A 12/16/21 08:35 Hepatitis A IgM Ab Non-reactive (NonReactive) 12/11/21 13:32 Hep Bs Antigen Non-reactive (Negative) 12/11/21 13:32 Hep B Core IgM Ab Non-reactive (NonReactive) 12/11/21 13:32 Hepatitis C Antibody Non-reactive (NonReactive) 12/11/21 13:32 Obrien/IV: Voiding Method Diaper Active Medications - Current Medications Current Medications: Generic Name Dose Route Start Last Admin Trade Name Freq PRN Reason Stop Dose Admin Ascorbic Acid 500 mg 12/18/21 22:00 Ascorbic Acid 500 Mg Tab PO BID [facility] Aspirin 81 mg 12/11/21 12:00 12/18/21 10:00 Aspirin 81 Mg Tab Chew PO 81 mg QDAY [facility] Administration Atorvastatin Calcium 40 mg 12/11/21 22:00 12/17/21 22:31 Atorvastatin 40 Mg Tab PO 40 mg QHS [facility] Administration Azithromycin 250 mg 12/18/21 15:00 Azithromycin 250 Mg Tab PO 12/21/21 14:59 QDAY [facility] Protocol Bupropion HCl 150 mg 12/11/21 12:00 12/18/21 10:00 Bupropion Xl 150 Mg Tab PO 150 mg QDAY [facility] Administration Cholecalciferol 1,000 unit 12/18/21 15:00 Cholecalciferol (Vit D3) 400 Unit Tab PO QDAY [facility] Cyanocobalamin 1,000 mcg 12/11/21 12:00 12/18/21 10:00 Cyanocobalamin (Vit B-12) 1000 Mcg Tab PO 1,000 mcg DAILY [facility] Administration Divalproex Sodium 125 mg 12/11/21 12:00 12/18/21 10:[address] 125 Mg Tab PO 125 mg BID [facility] Administration Escitalopram Oxalate 10 mg 12/11/21 22:00 12/17/21 22:30 Escitalopram 10 Mg Tab PO 10 mg QHS [facility] Administration Ibuprofen 800 mg 12/11/21 12:00 12/18/21 10:00 Ibuprofen 800 Mg Tab PO 800 mg DAILY [facility] Administration Latanoprost 1 drops 12/11/21 22:00 12/17/21 22:32 Latanoprost 0.005% Ophth Soln 2.5 Ml OU 1 drops QHS [facility] Administration Prednisone 10 mg 12/19/21 10:00 Prednisone 10 Mg Tab PO QDAY [facility] Quetiapine Fumarate 25 mg 12/11/21 14:00 12/18/21 13:40 Quetiapine 25 Mg Tab PO 25 mg 1400 [facility] Administration Quetiapine Fumarate 50 mg 12/11/21 22:00 12/17/21 22:31 Quetiapine 25 Mg Tab PO 50 mg QHS [facility] Administration Timolol Maleate 1 drops 12/16/21 22:00 12/18/21 10:00 Timolol 0.5% Ophth Soln 5 Ml OU 1 drops BID [facility] Administration Zinc Sulfate 220 mg 12/18/21 22:00 Zinc Sulfate 220 Mg Cap PO BID [facility] Nutrition/Malnutrition Assess - Dietary Evaluation Nutrition/Malnutrition Findings: Nutrition Notes Start: 12/18/21 12:37 Freq: Status: Active Protocol: Document 12/18/21 12:37 BEATA (Rec: 12/18/21 12:41 BEATA [id number]) Nutrition Notes Need for Assessment generated from: LOS Initial or Follow up Brief Note Current Diet Regular Height 6 ft Weight 84 kg [place] Body Weight (kg) 80.90 BMI 25.1 Weight Status Appropriate Subjective/Other Information Pt screened for LOS. He has consumed 65% of meals since admission. 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 Percent of energy/protein needs met: 74% energy 69% pro Burn Absent Trauma Absent Current % PO Fair (50-74%) Minimum of two criteria No Is patient on ventilator? No Is Patient Ambulatory and/or Out of Bed Yes REE-([facility]-ambulatory/OOB) [ 2018.900 [id number]] Calculation Used for Recommendations [facility] Additional Notes Pro needs 1-1.2g/k-101g/ day Fluid needs 1ml/kcal Nutrition Intervention Follow-Up By: 12/25/21 Additional Comments F/U: intakes, wt, need for ONS
--- NOTE | 2021-12-18 15:24 | Progress Note ---
Assessment and Plan - Patient Problems (1) Vascular dementia with behavior disturbance Current Visit: Yes Status: Acute Plan to address problem: Verbal prompting, verbal redirection, benzodiazepine therapy as clinically indicated (2) Cerebral atherosclerosis Current Visit: Yes Status: Acute Plan to address problem: Risk factor reduction, antiplatelet therapy as clinically indicated. (3) Hypertension Current Visit: Yes Status: Acute Qualifiers: Hypertension type: primary hypertension Qualified Code(s): I10 - Essential (primary) hypertension Plan to address problem: Monitor blood pressure every shift, continue medical management. (4) Hyperlipidemia Current Visit: Yes Status: Acute Qualifiers: Hyperlipidemia type: mixed hyperlipidemia Qualified Code(s): E78.2 - Mixed hyperlipidemia Plan to address problem: Low-cholesterol diet, supportive care. (5) Depression Current Visit: Yes Status: Acute Plan to address problem: Continue medical management, supportive care. (6) Advance care planning Current Visit: Yes Status: Acute Plan to address problem: Disease education conducted, care plan discussed, diagnoses discussed, prognosis discussed, patient is full code, +30 minutes. (7) Preventative health care Current Visit: Yes Status: Acute Plan to address problem: Patient counseled regarding home safety precautions, outpatient follow-up with primary care physician for all age and risk factor appropriate screening test. +30 minutes. History Interval history: 86 YO Female with Vascular Dementia with behavioral disturbance, Cerebral Atherosclerosis, HLD, HTN, MDD admitted to [facility] unit for psychiatric stabilization. Consult placed by Dr. Iglesias for medical management. Patient seen and evaluated in the recreation room. Patient appears to be at baseline level of cognition and function. No reported nursing events. Hospitalist Physical - Constitutional Vitals: Temp Pulse Resp BP Pulse Ox 97.7 F 56 L 18 164/72 92 12/18/21 09:44 12/18/21 09:44 12/18/21 09:44 12/18/21 09:44 12/18/21 09:44 General appearance: Present: no acute distress, well-nourished - EENT Eyes: Present: PERRL ENT: hearing decreased - Neck Neck: Present: supple - Respiratory Respiratory effort: normal Respiratory: bilateral: diminished - Cardiovascular Rhythm: regular Heart Sounds: Present: S1 & S2 - Extremities Extremities: no ischemia Peripheral Pulses: within normal limits - Abdominal General gastrointestinal: soft, non-tender, non-distended - Integumentary Integumentary: Present: clear, dry - Psychiatric Psychiatric: cooperative - Neurologic Neurologic: CNII-XII intact Results - Labs CBC & Chem 7: 12/11/21 13:32 12/11/21 13:32 Labs: Laboratory Last Values WBC 5.3 K/mm3 (4.5-11.0) 12/11/21 13:32 RBC 4.77 M/mm3 (3.65-5.03) 12/11/21 13:32 Hgb 14.1 gm/dl (11.8-15.2) 12/11/21 13:32 Hct 42.0 % (35.5-45.6) 12/11/21 13:32 MCV 88 fl (84-94) 12/11/21 13:32 MCH 30 pg (28-32) 12/11/21 13:32 MCHC 34 % (32-34) 12/11/21 13:32 RDW 14.6 % (13.2-15.2) 12/11/21 13:32 Plt Count 199 K/mm3 (140-440) 12/11/21 13:32 Lymph % (Auto) 26.4 % (13.4-35.0) 12/11/21 13:32 [place] % (Auto) 15.8 % (0.0-7.3) H 12/11/21 13:32 Eos % (Auto) 1.1 % (0.0-4.3) 12/11/21 13:32 Baso % (Auto) 0.4 % (0.0-1.8) 12/11/21 13:32 Lymph # (Auto) 1.4 K/mm3 (1.2-5.4) 12/11/21 13:32 [place] # (Auto) 0.8 K/mm3 (0.0-0.8) 12/11/21 13:32 Eos # (Auto) 0.1 K/mm3 (0.0-0.4) 12/11/21 13:32 Baso # (Auto) 0.0 K/mm3 (0.0-0.1) 12/11/21 13:32 Seg Neutrophils % 56.3 % (40.0-70.0) 12/11/21 13:32 Seg Neutrophils # 3.0 K/mm3 (1.8-7.7) 12/11/21 13:32 Sodium 138 mmol/L (137-145) 12/11/21 13:32 Potassium 4.1 mmol/L (3.6-5.0) 12/11/21 13:32 Chloride 101.4 mmol/L (98-107) 12/11/21 13:32 Carbon Dioxide 24 mmol/L (22-30) 12/11/21 13:32 Anion Gap 17 mmol/L 12/11/21 13:32 BUN 21 mg/dL (9-20) H 12/11/21 13:32 Creatinine 1.4 mg/dL (0.8-1.3) H 12/11/21 13:32 Estimated GFR 48 ml/min 12/11/21 13:32 BUN/Creatinine Ratio 15 % 12/11/21 13:32 Glucose 117 mg/dL (75-100) H 12/11/21 13:32 Hemoglobin A1c 6.1 % (4-6) H 12/11/21 13:32 Calcium 8.7 mg/dL (8.4-10.2) 12/11/21 13:32 Total Bilirubin 0.50 mg/dL (0.1-1.2) 12/11/21 13:32 AST 45 units/L (5-40) H 12/11/21 13:32 ALT 50 units/L (7-56) 12/11/21 13:32 Alkaline Phosphatase 69 units/L (35-129) 12/11/21 13:32 Total Protein 6.1 g/dL (6.3-8.2) L 12/11/21 13:32 Albumin 4.0 g/dL (3.9-5) 12/11/21 13:32 Albumin/Globulin Ratio 1.9 % 12/11/21 13:32 Triglycerides 251 mg/dL (2-149) H 12/11/21 13:32 Cholesterol 239 mg/dL (50-199) H 12/11/21 13:32 LDL Cholesterol Direct 158 mg/dL (50-130) H 12/11/21 13:32 HDL Cholesterol 41 mg/dL (40-59) 12/11/21 13:32 Cholesterol/HDL Ratio 5.82 % 12/11/21 13:32 TSH 3.160 mlU/mL (0.270-4.200) 12/11/21 13:32 Coronavirus (PCR) Positive (Negative) A 12/16/21 08:35 Hepatitis A IgM Ab Non-reactive (NonReactive) 12/11/21 13:32 Hep Bs Antigen Non-reactive (Negative) 12/11/21 13:32 Hep B Core IgM Ab Non-reactive (NonReactive) 12/11/21 13:32 Hepatitis C Antibody Non-reactive (NonReactive) 12/11/21 13:32 Obrien/IV: Voiding Method Diaper Active Medications - Current Medications Current Medications: Generic Name Dose Route Start Last Admin Trade Name Freq PRN Reason Stop Dose Admin Ascorbic Acid 500 mg 12/18/21 22:00 Ascorbic Acid 500 Mg Tab PO BID [facility] Aspirin 81 mg 12/11/21 12:00 12/18/21 10:00 Aspirin 81 Mg Tab Chew PO 81 mg QDAY [facility] Administration Atorvastatin Calcium 40 mg 12/11/21 22:00 12/17/21 22:31 Atorvastatin 40 Mg Tab PO 40 mg QHS [facility] Administration Azithromycin 250 mg 12/18/21 15:00 Azithromycin 250 Mg Tab PO 12/21/21 14:59 QDAY [facility] Protocol Bupropion HCl 150 mg 12/11/21 12:00 12/18/21 10:00 Bupropion Xl 150 Mg Tab PO 150 mg QDAY [facility] Administration Cholecalciferol 1,000 unit 12/18/21 15:00 Cholecalciferol (Vit D3) 400 Unit Tab PO QDAY [facility] Cyanocobalamin 1,000 mcg 12/11/21 12:00 12/18/21 10:00 Cyanocobalamin (Vit B-12) 1000 Mcg Tab PO 1,000 mcg DAILY [facility] Administration Divalproex Sodium 125 mg 12/11/21 12:00 12/18/21 10:[address] 125 Mg Tab PO 125 mg BID [facility] Administration Escitalopram Oxalate 10 mg 12/11/21 22:00 12/17/21 22:30 Escitalopram 10 Mg Tab PO 10 mg QHS [facility] Administration Ibuprofen 800 mg 12/11/21 12:00 12/18/21 10:00 Ibuprofen 800 Mg Tab PO 800 mg DAILY [facility] Administration Latanoprost 1 drops 12/11/21 22:00 12/17/21 22:32 Latanoprost 0.005% Ophth Soln 2.5 Ml OU 1 drops QHS [facility] Administration Prednisone 10 mg 12/19/21 10:00 Prednisone 10 Mg Tab PO QDAY [facility] Quetiapine Fumarate 25 mg 12/11/21 14:00 12/18/21 13:40 Quetiapine 25 Mg Tab PO 25 mg 1400 [facility] Administration Quetiapine Fumarate 50 mg 12/11/21 22:00 12/17/21 22:31 Quetiapine 25 Mg Tab PO 50 mg QHS [facility] Administration Timolol Maleate 1 drops 12/16/21 22:00 12/18/21 10:00 Timolol 0.5% Ophth Soln 5 Ml OU 1 drops BID [facility] Administration Zinc Sulfate 220 mg 12/18/21 22:00 Zinc Sulfate 220 Mg Cap PO BID [facility] Nutrition/Malnutrition Assess - Dietary Evaluation Nutrition/Malnutrition Findings: Nutrition Notes Start: 12/18/21 12:37 Freq: Status: Active Protocol: Document 12/18/21 12:37 BEATA (Rec: 12/18/21 12:41 BEATA [id number]) Nutrition Notes Need for Assessment generated from: LOS Initial or Follow up Brief Note Current Diet Regular Height 6 ft Weight 84 kg [place] Body Weight (kg) 80.90 BMI 25.1 Weight Status Appropriate Subjective/Other Information Pt screened for LOS. He has consumed 65% of meals since admission. 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 Percent of energy/protein needs met: 74% energy 69% pro Burn Absent Trauma Absent Current % PO Fair (50-74%) Minimum of two criteria No Is patient on ventilator? No Is Patient Ambulatory and/or Out of Bed Yes REE-([facility]-ambulatory/OOB) [ 2018.900 [id number]] Calculation Used for Recommendations [facility] Additional Notes Pro needs 1-1.2g/k-101g/ day Fluid needs 1ml/kcal Nutrition Intervention Follow-Up By: 12/25/21 Additional Comments F/U: intakes, wt, need for ONS
--- NOTE | 2021-12-18 15:26 | Progress Note ---
Assessment and Plan - Patient Problems (1) Vascular dementia with behavior disturbance Current Visit: Yes Status: Acute Plan to address problem: Verbal prompting, verbal redirection, benzodiazepine therapy as clinically indicated (2) Cerebral atherosclerosis Current Visit: Yes Status: Acute Plan to address problem: Risk factor reduction, antiplatelet therapy as clinically indicated. (3) Hypertension Current Visit: Yes Status: Acute Qualifiers: Hypertension type: primary hypertension Qualified Code(s): I10 - Essential (primary) hypertension Plan to address problem: Monitor blood pressure every shift, continue medical management. (4) Hyperlipidemia Current Visit: Yes Status: Acute Qualifiers: Hyperlipidemia type: mixed hyperlipidemia Qualified Code(s): E78.2 - Mixed hyperlipidemia Plan to address problem: Low-cholesterol diet, supportive care. (5) Depression Current Visit: Yes Status: Acute Plan to address problem: Continue medical management, supportive care. (6) Advance care planning Current Visit: Yes Status: Acute Plan to address problem: Disease education conducted, care plan discussed, diagnoses discussed, prognosis discussed, patient is full code, +30 minutes. (7) Preventative health care Current Visit: Yes Status: Acute Plan to address problem: Patient counseled regarding home safety precautions, outpatient follow-up with primary care physician for all age and risk factor appropriate screening test. +30 minutes. (8) Coronavirus infection Current Visit: Yes Status: Acute Plan to address problem: Currently asymptomatic. Will consider oral therapy in AM. Reevaluation in AM. History Interval history: 86 YO Female with Vascular Dementia with behavioral disturbance, Cerebral Atherosclerosis, HLD, HTN, MDD admitted to [facility] unit for psychiatric stabilization. Consult placed by Dr. Iglesias for medical management. Patient seen and evaluated in the recreation room. Patient appears to be at baseline level of cognition and function. Pt found to be coronavirus positive with mild cough. Hospitalist Physical - Constitutional Vitals: Temp Pulse Resp BP Pulse Ox 97.7 F 56 L 18 164/72 92 12/18/21 09:44 12/18/21 09:44 12/18/21 09:44 12/18/21 09:44 12/18/21 09:44 General appearance: Present: no acute distress, well-nourished - EENT Eyes: Present: PERRL ENT: hearing decreased - Neck Neck: Present: supple - Respiratory Respiratory effort: normal Respiratory: bilateral: diminished - Cardiovascular Rhythm: regular Heart Sounds: Present: S1 & S2 - Extremities Extremities: no ischemia Peripheral Pulses: within normal limits - Abdominal General gastrointestinal: soft, non-tender, non-distended - Integumentary Integumentary: Present: clear, dry - Psychiatric Psychiatric: cooperative - Neurologic Neurologic: CNII-XII intact Results - Labs CBC & Chem 7: 12/11/21 13:32 12/11/21 13:32 Labs: Laboratory Last Values WBC 5.3 K/mm3 (4.5-11.0) 12/11/21 13:32 RBC 4.77 M/mm3 (3.65-5.03) 12/11/21 13:32 Hgb 14.1 gm/dl (11.8-15.2) 12/11/21 13:32 Hct 42.0 % (35.5-45.6) 12/11/21 13:32 MCV 88 fl (84-94) 12/11/21 13:32 MCH 30 pg (28-32) 12/11/21 13:32 MCHC 34 % (32-34) 12/11/21 13:32 RDW 14.6 % (13.2-15.2) 12/11/21 13:32 Plt Count 199 K/mm3 (140-440) 12/11/21 13:32 Lymph % (Auto) 26.4 % (13.4-35.0) 12/11/21 13:32 [place] % (Auto) 15.8 % (0.0-7.3) H 12/11/21 13:32 Eos % (Auto) 1.1 % (0.0-4.3) 12/11/21 13:32 Baso % (Auto) 0.4 % (0.0-1.8) 12/11/21 13:32 Lymph # (Auto) 1.4 K/mm3 (1.2-5.4) 12/11/21 13:32 [place] # (Auto) 0.8 K/mm3 (0.0-0.8) 12/11/21 13:32 Eos # (Auto) 0.1 K/mm3 (0.0-0.4) 12/11/21 13:32 Baso # (Auto) 0.0 K/mm3 (0.0-0.1) 12/11/21 13:32 Seg Neutrophils % 56.3 % (40.0-70.0) 12/11/21 13:32 Seg Neutrophils # 3.0 K/mm3 (1.8-7.7) 12/11/21 13:32 Sodium 138 mmol/L (137-145) 12/11/21 13:32 Potassium 4.1 mmol/L (3.6-5.0) 12/11/21 13:32 Chloride 101.4 mmol/L (98-107) 12/11/21 13:32 Carbon Dioxide 24 mmol/L (22-30) 12/11/21 13:32 Anion Gap 17 mmol/L 12/11/21 13:32 BUN 21 mg/dL (9-20) H 12/11/21 13:32 Creatinine 1.4 mg/dL (0.8-1.3) H 12/11/21 13:32 Estimated GFR 48 ml/min 12/11/21 13:32 BUN/Creatinine Ratio 15 % 12/11/21 13:32 Glucose 117 mg/dL (75-100) H 12/11/21 13:32 Hemoglobin A1c 6.1 % (4-6) H 12/11/21 13:32 Calcium 8.7 mg/dL (8.4-10.2) 12/11/21 13:32 Total Bilirubin 0.50 mg/dL (0.1-1.2) 12/11/21 13:32 AST 45 units/L (5-40) H 12/11/21 13:32 ALT 50 units/L (7-56) 12/11/21 13:32 Alkaline Phosphatase 69 units/L (35-129) 12/11/21 13:32 Total Protein 6.1 g/dL (6.3-8.2) L 12/11/21 13:32 Albumin 4.0 g/dL (3.9-5) 12/11/21 13:32 Albumin/Globulin Ratio 1.9 % 12/11/21 13:32 Triglycerides 251 mg/dL (2-149) H 12/11/21 13:32 Cholesterol 239 mg/dL (50-199) H 12/11/21 13:32 LDL Cholesterol Direct 158 mg/dL (50-130) H 12/11/21 13:32 HDL Cholesterol 41 mg/dL (40-59) 12/11/21 13:32 Cholesterol/HDL Ratio 5.82 % 12/11/21 13:32 TSH 3.160 mlU/mL (0.270-4.200) 12/11/21 13:32 Coronavirus (PCR) Positive (Negative) A 12/16/21 08:35 Hepatitis A IgM Ab Non-reactive (NonReactive) 12/11/21 13:32 Hep Bs Antigen Non-reactive (Negative) 12/11/21 13:32 Hep B Core IgM Ab Non-reactive (NonReactive) 12/11/21 13:32 Hepatitis C Antibody Non-reactive (NonReactive) 12/11/21 13:32 Obrien/IV: Voiding Method Diaper Active Medications - Current Medications Current Medications: Generic Name Dose Route Start Last Admin Trade Name Freq PRN Reason Stop Dose Admin Ascorbic Acid 500 mg 12/18/21 22:00 Ascorbic Acid 500 Mg Tab PO BID TRICIA Aspirin 81 mg 12/11/21 12:00 12/18/21 10:00 Aspirin 81 Mg Tab Chew PO 81 mg QDAY TRICIA Administration Atorvastatin Calcium 40 mg 12/11/21 22:00 12/17/21 22:31 Atorvastatin 40 Mg Tab PO 40 mg QHS TRICIA Administration Azithromycin 250 mg 12/18/21 15:00 Azithromycin 250 Mg Tab PO 12/21/21 14:59 QDAY [facility] Protocol Bupropion HCl 150 mg 12/11/21 12:00 12/18/21 10:00 Bupropion Xl 150 Mg Tab PO 150 mg QDAY TRICIA Administration Cholecalciferol 1,000 unit 12/18/21 15:00 Cholecalciferol (Vit D3) 400 Unit Tab PO QDAY TRICIA Cyanocobalamin 1,000 mcg 12/11/21 12:00 12/18/21 10:00 Cyanocobalamin (Vit B-12) 1000 Mcg Tab PO 1,000 mcg DAILY TRICIA Administration Divalproex Sodium 125 mg 12/11/21 12:00 12/18/21 10:[address] 125 Mg Tab PO 125 mg BID TRICIA Administration Escitalopram Oxalate 10 mg 12/11/21 22:00 12/17/21 22:30 Escitalopram 10 Mg Tab PO 10 mg QHS TRICIA Administration Ibuprofen 800 mg 12/11/21 12:00 12/18/21 10:00 Ibuprofen 800 Mg Tab PO 800 mg DAILY TRICIA Administration Latanoprost 1 drops 12/11/21 22:00 12/17/21 22:32 Latanoprost 0.005% Ophth Soln 2.5 Ml OU 1 drops QHS TRICIA Administration Prednisone 10 mg 12/19/21 10:00 Prednisone 10 Mg Tab PO QDAY TRICIA Quetiapine Fumarate 25 mg 12/11/21 14:00 12/18/21 13:40 Quetiapine 25 Mg Tab PO 25 mg 1400 TRICIA Administration Quetiapine Fumarate 50 mg 12/11/21 22:00 12/17/21 22:31 Quetiapine 25 Mg Tab PO 50 mg QHS TRICIA Administration Timolol Maleate 1 drops 12/16/21 22:00 12/18/21 10:00 Timolol 0.5% Ophth Soln 5 Ml OU 1 drops BID TRICIA Administration Zinc Sulfate 220 mg 12/18/21 22:00 Zinc Sulfate 220 Mg Cap PO BID TRICIA Nutrition/Malnutrition Assess - Dietary Evaluation Nutrition/Malnutrition Findings: Nutrition Notes Start: 12/18/21 12:37 Freq: Status: Active Protocol: Document 12/18/21 12:37 BEATA (Rec: 12/18/21 12:41 BEATA [id number]) Nutrition Notes Need for Assessment generated from: LOS Initial or Follow up Brief Note Current Diet Regular Height 6 ft Weight 84 kg [place] Body Weight (kg) 80.90 BMI 25.1 Weight Status Appropriate Subjective/Other Information Pt screened for LOS. He has consumed 65% of meals since admission. 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 Percent of energy/protein needs met: 74% energy 69% pro Burn Absent Trauma Absent Current % PO Fair (50-74%) Minimum of two criteria No Is patient on ventilator? No Is Patient Ambulatory and/or Out of Bed Yes REE-([facility]-ambulatory/OOB) [ 2018.900 NUTR.MSJOOB] Calculation Used for Recommendations [facility] Additional Notes Pro needs 1-1.2g/k-101g/ day Fluid needs 1ml/kcal Nutrition Intervention Follow-Up By: 12/25/21 Additional Comments F/U: intakes, wt, need for ONS
--- NOTE | 2021-12-18 15:27 | Progress Note ---
Assessment and Plan - Patient Problems (1) Coronavirus infection Current Visit: Yes Status: Acute Plan to address problem: Vitamin D therapy, vitamin C therapy, zinc, or steroid therapy, oral antibiotic therapy, (2) Vascular dementia with behavior disturbance Current Visit: Yes Status: Acute Plan to address problem: Verbal prompting, verbal redirection, benzodiazepine therapy as clinically indicated (3) Cerebral atherosclerosis Current Visit: Yes Status: Acute Plan to address problem: Risk factor reduction, antiplatelet therapy as clinically indicated. (4) Hypertension Current Visit: Yes Status: Acute Qualifiers: Hypertension type: primary hypertension Qualified Code(s): I10 - Essential (primary) hypertension Plan to address problem: Monitor blood pressure every shift, continue medical management. (5) Hyperlipidemia Current Visit: Yes Status: Acute Qualifiers: Hyperlipidemia type: mixed hyperlipidemia Qualified Code(s): E78.2 - Mixed hyperlipidemia Plan to address problem: Low-cholesterol diet, supportive care. (6) Depression Current Visit: Yes Status: Acute Plan to address problem: Continue medical management, supportive care. (7) Advance care planning Current Visit: Yes Status: Acute Plan to address problem: Disease education conducted, care plan discussed, diagnoses discussed, prognosis discussed, patient is full code, +30 minutes. (8) Preventative health care Current Visit: Yes Status: Acute Plan to address problem: Patient counseled regarding home safety precautions, outpatient follow-up with primary care physician for all age and risk factor appropriate screening test. +30 minutes. History Interval history: 86 YO Female with Vascular Dementia with behavioral disturbance, Cerebral Athe rosclerosis, HLD, HTN, MDD admitted to [facility] unit for psychiatric stabilization. Consult placed by Dr. Iglesias for medical management. Patient seen and evaluated in the recreation room. Patient appears to be at baseline level of cognition and function. Pt found to be coronavirus positive with mild cough. Hospitalist Physical - Constitutional Vitals: Temp Pulse Resp BP Pulse Ox 97.7 F 56 L 18 164/72 92 12/18/21 09:44 12/18/21 09:44 12/18/21 09:44 12/18/21 09:44 12/18/21 09:44 General appearance: Present: no acute distress, well-nourished - EENT Eyes: Present: PERRL ENT: hearing decreased - Neck Neck: Present: supple - Respiratory Respiratory effort: normal Respiratory: bilateral: diminished - Cardiovascular Rhythm: regular Heart Sounds: Present: S1 & S2 - Extremities Extremities: no ischemia Peripheral Pulses: within normal limits - Abdominal General gastrointestinal: soft, non-tender, non-distended - Integumentary Integumentary: Present: clear, dry - Psychiatric Psychiatric: cooperative - Neurologic Neurologic: CNII-XII intact Results - Labs CBC & Chem 7: 12/11/21 13:32 12/11/21 13:32 Labs: Laboratory Last Values WBC 5.3 K/mm3 (4.5-11.0) 12/11/21 13:32 RBC 4.77 M/mm3 (3.65-5.03) 12/11/21 13:32 Hgb 14.1 gm/dl (11.8-15.2) 12/11/21 13:32 Hct 42.0 % (35.5-45.6) 12/11/21 13:32 MCV 88 fl (84-94) 12/11/21 13:32 MCH 30 pg (28-32) 12/11/21 13:32 MCHC 34 % (32-34) 12/11/21 13:32 RDW 14.6 % (13.2-15.2) 12/11/21 13:32 Plt Count 199 K/mm3 (140-440) 12/11/21 13:32 Lymph % (Auto) 26.4 % (13.4-35.0) 12/11/21 13:32 [place] % (Auto) 15.8 % (0.0-7.3) H 12/11/21 13:32 Eos % (Auto) 1.1 % (0.0-4.3) 12/11/21 13:32 Baso % (Auto) 0.4 % (0.0-1.8) 12/11/21 13:32 Lymph # (Auto) 1.4 K/mm3 (1.2-5.4) 12/11/21 13:32 [place] # (Auto) 0.8 K/mm3 (0.0-0.8) 12/11/21 13:32 Eos # (Auto) 0.1 K/mm3 (0.0-0.4) 12/11/21 13:32 Baso # (Auto) 0.0 K/mm3 (0.0-0.1) 12/11/21 13:32 Seg Neutrophils % 56.3 % (40.0-70.0) 12/11/21 13:32 Seg Neutrophils # 3.0 K/mm3 (1.8-7.7) 12/11/21 13:32 Sodium 138 mmol/L (137-145) 12/11/21 13:32 Potassium 4.1 mmol/L (3.6-5.0) 12/11/21 13:32 Chloride 101.4 mmol/L (98-107) 12/11/21 13:32 Carbon Dioxide 24 mmol/L (22-30) 12/11/21 13:32 Anion Gap 17 mmol/L 12/11/21 13:32 BUN 21 mg/dL (9-20) H 12/11/21 13:32 Creatinine 1.4 mg/dL (0.8-1.3) H 12/11/21 13:32 Estimated GFR 48 ml/min 12/11/21 13:32 BUN/Creatinine Ratio 15 % 12/11/21 13:32 Glucose 117 mg/dL (75-100) H 12/11/21 13:32 Hemoglobin A1c 6.1 % (4-6) H 12/11/21 13:32 Calcium 8.7 mg/dL (8.4-10.2) 12/11/21 13:32 Total Bilirubin 0.50 mg/dL (0.1-1.2) 12/11/21 13:32 AST 45 units/L (5-40) H 12/11/21 13:32 ALT 50 units/L (7-56) 12/11/21 13:32 Alkaline Phosphatase 69 units/L (35-129) 12/11/21 13:32 Total Protein 6.1 g/dL (6.3-8.2) L 12/11/21 13:32 Albumin 4.0 g/dL (3.9-5) 12/11/21 13:32 Albumin/Globulin Ratio 1.9 % 12/11/21 13:32 Triglycerides 251 mg/dL (2-149) H 12/11/21 13:32 Cholesterol 239 mg/dL (50-199) H 12/11/21 13:32 LDL Cholesterol Direct 158 mg/dL (50-130) H 12/11/21 13:32 HDL Cholesterol 41 mg/dL (40-59) 12/11/21 13:32 Cholesterol/HDL Ratio 5.82 % 12/11/21 13:32 TSH 3.160 mlU/mL (0.270-4.200) 12/11/21 13:32 Coronavirus (PCR) Positive (Negative) A 12/16/21 08:35 Hepatitis A IgM Ab Non-reactive (NonReactive) 12/11/21 13:32 Hep Bs Antigen Non-reactive (Negative) 12/11/21 13:32 Hep B Core IgM Ab Non-reactive (NonReactive) 12/11/21 13:32 Hepatitis C Antibody Non-reactive (NonReactive) 12/11/21 13:32 Obrien/IV: Voiding Method Diaper Active Medications - Current Medications Current Medications: Generic Name Dose Route Start Last Admin Trade Name Freq PRN Reason Stop Dose Admin Ascorbic Acid 500 mg 12/18/21 22:00 Ascorbic Acid 500 Mg Tab PO BID TRICIA Aspirin 81 mg 12/11/21 12:00 12/18/21 10:00 Aspirin 81 Mg Tab Chew PO 81 mg QDAY [facility] Administration Atorvastatin Calcium 40 mg 12/11/21 22:00 12/17/21 22:31 Atorvastatin 40 Mg Tab PO 40 mg QHS [facility] Administration Azithromycin 250 mg 12/18/21 15:00 Azithromycin 250 Mg Tab PO 12/21/21 14:59 QDAY [facility] Protocol Bupropion HCl 150 mg 12/11/21 12:00 12/18/21 10:00 Bupropion Xl 150 Mg Tab PO 150 mg QDAY [facility] Administration Cholecalciferol 1,000 unit 12/18/21 15:00 Cholecalciferol (Vit D3) 400 Unit Tab PO QDAY TRICIA Cyanocobalamin 1,000 mcg 12/11/21 12:00 12/18/21 10:00 Cyanocobalamin (Vit B-12) 1000 Mcg Tab PO 1,000 mcg DAILY TRICIA Administration Divalproex Sodium 125 mg 12/11/21 12:00 12/18/21 10:[address] 125 Mg Tab PO 125 mg BID TRICIA Administration Escitalopram Oxalate 10 mg 12/11/21 22:00 12/17/21 22:30 Escitalopram 10 Mg Tab PO 10 mg QHS TRICIA Administration Ibuprofen 800 mg 12/11/21 12:00 12/18/21 10:00 Ibuprofen 800 Mg Tab PO 800 mg DAILY TRICIA Administration Latanoprost 1 drops 12/11/21 22:00 12/17/21 22:32 Latanoprost 0.005% Ophth Soln 2.5 Ml OU 1 drops QHS TRICIA Administration Prednisone 10 mg 12/19/21 10:00 Prednisone 10 Mg Tab PO QDAY TRICIA Quetiapine Fumarate 25 mg 12/11/21 14:00 12/18/21 13:40 Quetiapine 25 Mg Tab PO 25 mg 1400 TRICIA Administration Quetiapine Fumarate 50 mg 12/11/21 22:00 12/17/21 22:31 Quetiapine 25 Mg Tab PO 50 mg QHS TRICIA Administration Timolol Maleate 1 drops 12/16/21 22:00 12/18/21 10:00 Timolol 0.5% Ophth Soln 5 Ml OU 1 drops BID TRICIA Administration Zinc Sulfate 220 mg 12/18/21 22:00 Zinc Sulfate 220 Mg Cap PO BID TRICIA Nutrition/Malnutrition Assess - Dietary Evaluation Nutrition/Malnutrition Findings: Nutrition Notes Start: 12/18/21 12:37 Freq: Status: Active Protocol: Document 12/18/21 12:37 BEATA (Rec: 12/18/21 12:41 BEATA [id number]) Nutrition Notes Need for Assessment generated from: LOS Initial or Follow up Brief Note Current Diet Regular Height 6 ft Weight 84 kg [place] Body Weight (kg) 80.90 BMI 25.1 Weight Status Appropriate Subjective/Other Information Pt screened for LOS. He has consumed 65% of meals since admission. 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 Percent of energy/protein needs met: 74% energy 69% pro Burn Absent Trauma Absent Current % PO Fair (50-74%) Minimum of two criteria No Is patient on ventilator? No Is Patient Ambulatory and/or Out of Bed Yes REE-([place]-ambulatory/OOB) [ 2018.900 NUTR.MSJOOB] Calculation Used for Recommendations [place] Additional Notes Pro needs 1-1.2g/k-101g/ day Fluid needs 1ml/kcal Nutrition Intervention Follow-Up By: 12/25/21 Additional Comments F/U: intakes, wt, need for ONS
[2021-12-18] MEDS: CHOLECALCIFEROL (VIT D3) 1000 UNIT (25 mcg) TAB PO SCH (19:53)
[2021-12-18] MEDS: AZITHROMYCIN 250 MG TAB PO SCH (19:54)
[2021-12-18] MEDS: LATANOPROST 0.005% OPHTH SOLN 2.5 ML OU SCH (20:59)
[2021-12-18] MEDS: ESCITALOPRAM 10 MG TAB PO SCH (21:00)
[2021-12-18] MEDS: ASCORBIC ACID 500 MG TAB PO SCH (21:01)
[2021-12-18] MEDS: ZINC SULFATE 220 MG CAP PO SCH (21:01)
[2021-12-19] MEDS: DIVALPROEX DR 125 MG TAB PO SCH ×2 (09:34→21:45)
[2021-12-19] MEDS: IBUPROFEN 800 MG TAB PO SCH (09:34)
[2021-12-19] MEDS: CYANOCOBALAMIN (VIT B-12) 1000 MCG TAB PO SCH (09:34)
[2021-12-19] MEDS: CHOLECALCIFEROL (VIT D3) 1000 UNIT (25 mcg) TAB PO SCH (09:35)
[2021-12-19] MEDS: predniSONE 10 MG TAB PO SCH (09:35)
[2021-12-19] MEDS: AZITHROMYCIN 250 MG TAB PO SCH (09:35)
[2021-12-19] MEDS: ASCORBIC ACID 500 MG TAB PO SCH ×2 (09:35→21:47)
[2021-12-19] MEDS: buPROPion XL 150 MG TAB PO SCH (09:35)
[2021-12-19] MEDS: ZINC SULFATE 220 MG CAP PO SCH ×2 (09:35→21:47)
[2021-12-19] MEDS: ASPIRIN 81 MG TAB CHEW PO SCH (09:35)
[2021-12-19] MEDS: TIMOLOL 0.5% OPHTH SOLN 5 ML OU SCH ×2 (09:43→21:46)
--- NOTE | 2021-12-19 10:08 | Progress Note ---
Subjective Date of service: 12/19/21 Principal diagnosis: Dementia w/Behavioral Disturbance Subjective Comment: 12/19:The patient was seen in his room. He is calm and cooperative. He reports doing well. The patient is [place] M[place]. Unable to assess SI/HI/AVHs 12/18: The patient was seen in his room. He is calm. He states he is ok. Pt is hard of hearing and blind; unable to state his name. 12/17:The patient was seen today. He is pleasant and polite. He is lying in bed awake. He greats me with "good morning." He says he feels tired. The patient denies SI/HI. He says "Lord, no. I have no reason to do any of that." He denies hallucinations. 12/16:The patient was seen today. He is eating breakfast. He says he feels pretty good. The patient denies SI/HI or hallucinations. The patient is being tested for COVID due to symptoms. 12/15:The patient was seen today. He is lying in bed resting, but easily arouses. He raises up and sits on side of the bed. The patient denies SI/HI or hallucinations. 12/14:The patient was seen today. He is lying in bed resting, but easily arouses. He is calm, and cooperative. He says he feels pretty good today. He says he slept well. The patient denies SI/HI or hallucinations. The patient denied any of incidents that got him admitted into the hospital. 12/13:The patient was seen today. He is calm, and cooperative. The patient is sleeping in the dayroom. He easily arouses, but says he's tired. He says he slept well. The patient denies SI/HI or hallucinations. 12/12:The patient was seen today. He is calm, and cooperative. The patient is pleasant. He says he's doing fine. He denies SI/HI. He says "heck no" when asked. He says his appetite is good. I ask him about why he came in. He says "I didn't know none of that." REVIEW OF SYSTEMS Unable to assess MENTAL STATUS Unable to assess Diagnoses: Dementia with Behavioral Disturbance Treatment Plan Patient will be admitted for inpatient psychiatric evaluation, medication adjustment and close monitoring The patient's behavior, mood, sleep and appetite will be closely monitored. Patient will be enrolled in individual and group therapeutic sessions and encouraged to attend. Patient will be provided with a safe and structured environment. Patient's physical health needs will be addressed by the Hospitalist. Hospitalist Consulted Labs including CBC, CMP, Lipid profile and Hemoglobin A1C ordered Social Assessment will be completed and the Varnish Thinner will work with patient and family to ensure a suitable and safe disposition Medication adjustment will be made as clinically indicated Continue home medications Usual Wellness Yazdanism/Preservation: The patient agreed on the treatment plan, understood the risk, benefit, alternative treatment, potential consequence of no treatment, and gave informed consent. Legal Status: Involuntary Reaction to Hospitalization: Accepting Case staffed with Dr. Roberts Medications and Allergies Medications and Allergies Allergies Allergy/AdvReac Type Severity Reaction Status Date / Time No Known Allergies Allergy Unverified 12/09/21 13:02 Home Medications Medication Instructions Recorded Confirmed Last Taken Type Aspirin [Aspirin BABY CHEW TAB] 81 mg PO QDAY 12/10/21 12/10/21 Unknown History AtorvaSTATin [Lipitor] 40 mg PO QHS 12/10/21 12/10/21 Unknown History Cyanocobalamin [Vitamin B-12] 1,000 mcg PO DAILY 12/10/21 12/10/21 Unknown History Divalproex [Gregor TOLENTINO] 125 mg PO BID 12/10/21 12/10/21 Unknown History Dorzolamide HCl/Timolol Maleat 22.3 mg OU BID 12/10/21 12/10/21 Unknown History [Cosopt Eye Drops] Escitalopram [Lexapro] 10 mg PO QHS 12/10/21 12/10/21 Unknown History Ibuprofen [Motrin 800 MG tab] 800 mg PO DAILY 12/10/21 12/10/21 Unknown History Latanoprost 0.005% [Xalatan 0.005%] 1 drop OU QHS 12/10/21 12/10/21 Unknown History QUEtiapine [SEROquel] 25 mg PO 1400 12/10/21 12/10/21 Unknown History Quetiapine Fumarate [SEROquel] 50 mg PO QHS 12/10/21 12/10/21 Unknown History buPROPion XL [Wellbutrin XL] 150 mg PO QDAY 12/10/21 12/10/21 Unknown History Active Meds: Active Medications Ascorbic Acid (Ascorbic Acid 500 Mg Tab) 500 mg PO BID [facility] Last Admin: 12/19/21 09:35 Dose: 500 mg Aspirin (Aspirin 81 Mg Tab Chew) 81 mg PO QDAY [facility] Last Admin: 12/19/21 09:35 Dose: 81 mg Atorvastatin Calcium (Atorvastatin 40 Mg Tab) 40 mg PO QHS [facility] Last Admin: 12/18/21 21:00 Dose: 40 mg Azithromycin (Azithromycin 250 Mg Tab) 250 mg PO QDAY [facility]; Protocol Stop: 12/21/21 14:59 Last Admin: 12/19/21 09:35 Dose: 250 mg Bupropion HCl (Bupropion Xl 150 Mg Tab) 150 mg PO QDAY [facility] Last Admin: 12/19/21 09:35 Dose: 150 mg Cholecalciferol (Cholecalciferol (Vit D3) 1000 Unit (25 Mcg) Tab) 1,000 unit PO QDAY [facility] Last Admin: 12/19/21 09:35 Dose: 1,000 unit Cyanocobalamin (Cyanocobalamin (Vit B-12) 1000 Mcg Tab) 1,000 mcg PO DAILY [facility] Last Admin: 12/19/21 09:34 Dose: 1,000 mcg Divalproex Sodium (Divalproex Dr 125 Mg Tab) 125 mg PO BID [facility] Last Admin: 12/19/21 09:34 Dose: 125 mg Escitalopram Oxalate (Escitalopram 10 Mg Tab) 10 mg PO QHS [facility] Last Admin: 12/18/21 21:00 Dose: 10 mg Ibuprofen (Ibuprofen 800 Mg Tab) 800 mg PO DAILY [facility] Last Admin: 12/19/21 09:34 Dose: 800 mg Latanoprost (Latanoprost 0.005% Ophth Soln 2.5 Ml) 1 drops OU QHS [facility] Last Admin: 12/18/21 20:59 Dose: 1 drops Prednisone (Prednisone 10 Mg Tab) 10 mg PO QDAY [facility] Last Admin: 12/19/21 09:35 Dose: 10 mg Quetiapine Fumarate (Quetiapine 25 Mg Tab) 25 mg PO 1400 [facility] Last Admin: 12/18/21 13:40 Dose: 25 mg Quetiapine Fumarate (Quetiapine 25 Mg Tab) 50 mg PO QHS [facility] Last Admin: 12/18/21 21:00 Dose: 50 mg Timolol Maleate (Timolol 0.5% Ophth Soln 5 Ml) 1 drops OU BID [facility] Last Admin: 12/19/21 09:43 Dose: 1 drops Zinc Sulfate (Zinc Sulfate 220 Mg Cap) 220 mg PO BID [facility] Last Admin: 12/19/21 09:35 Dose: 220 mg Results - Results Labs/Vitals: Laboratory Last Values WBC 5.3 K/mm3 (4.5-11.0) 12/11/21 13:32 RBC 4.77 M/mm3 (3.65-5.03) 12/11/21 13:32 Hgb 14.1 gm/dl (11.8-15.2) 12/11/21 13:32 Hct 42.0 % (35.5-45.6) 12/11/21 13:32 MCV 88 fl (84-94) 12/11/21 13:32 MCH 30 pg (28-32) 12/11/21 13:32 MCHC 34 % (32-34) 12/11/21 13:32 RDW 14.6 % (13.2-15.2) 12/11/21 13:32 Plt Count 199 K/mm3 (140-440) 12/11/21 13:32 Lymph % (Auto) 26.4 % (13.4-35.0) 12/11/21 13:32 [place] % (Auto) 15.8 % (0.0-7.3) H 12/11/21 13:32 Eos % (Auto) 1.1 % (0.0-4.3) 12/11/21 13:32 Baso % (Auto) 0.4 % (0.0-1.8) 12/11/21 13:32 Lymph # (Auto) 1.4 K/mm3 (1.2-5.4) 12/11/21 13:32 [place] # (Auto) 0.8 K/mm3 (0.0-0.8) 12/11/21 13:32 Eos # (Auto) 0.1 K/mm3 (0.0-0.4) 12/11/21 13:32 Baso # (Auto) 0.0 K/mm3 (0.0-0.1) 12/11/21 13:32 Seg Neutrophils % 56.3 % (40.0-70.0) 12/11/21 13:32 Seg Neutrophils # 3.0 K/mm3 (1.8-7.7) 12/11/21 13:32 Sodium 138 mmol/L (137-145) 12/11/21 13:32 Potassium 4.1 mmol/L (3.6-5.0) 12/11/21 13:32 Chloride 101.4 mmol/L (98-107) 12/11/21 13:32 Carbon Dioxide 24 mmol/L (22-30) 12/11/21 13:32 Anion Gap 17 mmol/L 12/11/21 13:32 BUN 21 mg/dL (9-20) H 12/11/21 13:32 Creatinine 1.4 mg/dL (0.8-1.3) H 12/11/21 13:32 Estimated GFR 48 ml/min 12/11/21 13:32 BUN/Creatinine Ratio 15 % 12/11/21 13:32 Glucose 117 mg/dL (75-100) H 12/11/21 13:32 Hemoglobin A1c 6.1 % (4-6) H 12/11/21 13:32 Calcium 8.7 mg/dL (8.4-10.2) 12/11/21 13:32 Total Bilirubin 0.50 mg/dL (0.1-1.2) 12/11/21 13:32 AST 45 units/L (5-40) H 12/11/21 13:32 ALT 50 units/L (7-56) 12/11/21 13:32 Alkaline Phosphatase 69 units/L (35-129) 12/11/21 13:32 Total Protein 6.1 g/dL (6.3-8.2) L 12/11/21 13:32 Albumin 4.0 g/dL (3.9-5) 12/11/21 13:32 Albumin/Globulin Ratio 1.9 % 12/11/21 13:32 Triglycerides 251 mg/dL (2-149) H 12/11/21 13:32 Cholesterol 239 mg/dL (50-199) H 12/11/21 13:32 LDL Cholesterol Direct 158 mg/dL (50-130) H 12/11/21 13:32 HDL Cholesterol 41 mg/dL (40-59) 12/11/21 13:32 Cholesterol/HDL Ratio 5.82 % 12/11/21 13:32 TSH 3.160 mlU/mL (0.270-4.200) 12/11/21 13:32 Coronavirus (PCR) Positive (Negative) A 12/16/21 08:35 Hepatitis A IgM Ab Non-reactive (NonReactive) 12/11/21 13:32 Hep Bs Antigen Non-reactive (Negative) 12/11/21 13:32 Hep B Core IgM Ab Non-reactive (NonReactive) 12/11/21 13:32 Hepatitis C Antibody Non-reactive (NonReactive) 12/11/21 13:32 Last Vital Signs Temp 98.0 F 12/18/21 20:39 Pulse 57 L 12/18/21 20:39 Resp 17 12/18/21 20:39 BP 164/65 12/18/21 20:39 Pulse Ox 93 12/18/21 20:39
[2021-12-19] MEDS: QUEtiapine 25 MG TAB PO SCH ×2 (14:52→21:46)
--- NOTE | 2021-12-19 20:34 | Progress Note ---
Assessment and Plan - Patient Problems (1) Coronavirus infection Current Visit: Yes Status: Acute Plan to address problem: Vitamin D therapy, vitamin C therapy, zinc, or steroid therapy, oral antibiotic therapy, (2) Vascular dementia with behavior disturbance Current Visit: Yes Status: Acute Plan to address problem: Verbal prompting, verbal redirection, benzodiazepine therapy as clinically indicated (3) Cerebral atherosclerosis Current Visit: Yes Status: Acute Plan to address problem: Risk factor reduction, antiplatelet therapy as clinically indicated. (4) Hypertension Current Visit: Yes Status: Acute Qualifiers: Hypertension type: primary hypertension Qualified Code(s): I10 - Essential (primary) hypertension Plan to address problem: Monitor blood pressure every shift, continue medical management. (5) Hyperlipidemia Current Visit: Yes Status: Acute Qualifiers: Hyperlipidemia type: mixed hyperlipidemia Qualified Code(s): E78.2 - Mixed hyperlipidemia Plan to address problem: Low-cholesterol diet, supportive care. (6) Depression Current Visit: Yes Status: Acute Plan to address problem: Continue medical management, supportive care. (7) Advance care planning Current Visit: Yes Status: Acute Plan to address problem: Disease education conducted, care plan discussed, diagnoses discussed, prognosis discussed, patient is full code, +30 minutes. (8) Preventative health care Current Visit: Yes Status: Acute Plan to address problem: Patient counseled regarding home safety precautions, outpatient follow-up with primary care physician for all age and risk factor appropriate screening test. +30 minutes. History Interval history: 86 YO Female with Vascular Dementia with behavioral disturbance, Cerebral Athe rosclerosis, HLD, HTN, MDD admitted to [facility] for psychiatric stabilization. Consult placed by Dr. Iglesias for medical management. Patient seen and evaluated in the recreation room. Patient appears to be at baseline level of cognition and function. Pt found to be coronavirus positive with mild cough. Hospitalist Physical - Constitutional Vitals: Temp Pulse Resp BP Pulse Ox 97.4 F L 48 L 16 106/69 96 12/19/21 10:05 12/19/21 10:05 12/19/21 10:05 12/19/21 10:05 12/19/21 10:05 General appearance: Present: no acute distress, well-nourished - EENT Eyes: Present: PERRL ENT: hearing decreased - Neck Neck: Present: supple - Respiratory Respiratory effort: normal Respiratory: bilateral: diminished - Cardiovascular Rhythm: regular Heart Sounds: Present: S1 & S2 - Extremities Extremities: no ischemia Peripheral Pulses: within normal limits - Abdominal General gastrointestinal: soft, non-tender, non-distended - Integumentary Integumentary: Present: clear, dry - Psychiatric Psychiatric: cooperative - Neurologic Neurologic: CNII-XII intact Results - Labs CBC & Chem 7: 12/11/21 13:32 12/11/21 13:32 Labs: Laboratory Last Values WBC 5.3 K/mm3 (4.5-11.0) 12/11/21 13:32 RBC 4.77 M/mm3 (3.65-5.03) 12/11/21 13:32 Hgb 14.1 gm/dl (11.8-15.2) 12/11/21 13:32 Hct 42.0 % (35.5-45.6) 12/11/21 13:32 MCV 88 fl (84-94) 12/11/21 13:32 MCH 30 pg (28-32) 12/11/21 13:32 MCHC 34 % (32-34) 12/11/21 13:32 RDW 14.6 % (13.2-15.2) 12/11/21 13:32 Plt Count 199 K/mm3 (140-440) 12/11/21 13:32 Lymph % (Auto) 26.4 % (13.4-35.0) 12/11/21 13:32 [place] % (Auto) 15.8 % (0.0-7.3) H 12/11/21 13:32 Eos % (Auto) 1.1 % (0.0-4.3) 12/11/21 13:32 Baso % (Auto) 0.4 % (0.0-1.8) 12/11/21 13:32 Lymph # (Auto) 1.4 K/mm3 (1.2-5.4) 12/11/21 13:32 [place] # (Auto) 0.8 K/mm3 (0.0-0.8) 12/11/21 13:32 Eos # (Auto) 0.1 K/mm3 (0.0-0.4) 12/11/21 13:32 Baso # (Auto) 0.0 K/mm3 (0.0-0.1) 12/11/21 13:32 Seg Neutrophils % 56.3 % (40.0-70.0) 12/11/21 13:32 Seg Neutrophils # 3.0 K/mm3 (1.8-7.7) 12/11/21 13:32 Sodium 138 mmol/L (137-145) 12/11/21 13:32 Potassium 4.1 mmol/L (3.6-5.0) 12/11/21 13:32 Chloride 101.4 mmol/L (98-107) 12/11/21 13:32 Carbon Dioxide 24 mmol/L (22-30) 12/11/21 13:32 Anion Gap 17 mmol/L 12/11/21 13:32 BUN 21 mg/dL (9-20) H 12/11/21 13:32 Creatinine 1.4 mg/dL (0.8-1.3) H 12/11/21 13:32 Estimated GFR 48 ml/min 12/11/21 13:32 BUN/Creatinine Ratio 15 % 12/11/21 13:32 Glucose 117 mg/dL (75-100) H 12/11/21 13:32 Hemoglobin A1c 6.1 % (4-6) H 12/11/21 13:32 Calcium 8.7 mg/dL (8.4-10.2) 12/11/21 13:32 Total Bilirubin 0.50 mg/dL (0.1-1.2) 12/11/21 13:32 AST 45 units/L (5-40) H 12/11/21 13:32 ALT 50 units/L (7-56) 12/11/21 13:32 Alkaline Phosphatase 69 units/L (35-129) 12/11/21 13:32 Total Protein 6.1 g/dL (6.3-8.2) L 12/11/21 13:32 Albumin 4.0 g/dL (3.9-5) 12/11/21 13:32 Albumin/Globulin Ratio 1.9 % 12/11/21 13:32 Triglycerides 251 mg/dL (2-149) H 12/11/21 13:32 Cholesterol 239 mg/dL (50-199) H 12/11/21 13:32 LDL Cholesterol Direct 158 mg/dL (50-130) H 12/11/21 13:32 HDL Cholesterol 41 mg/dL (40-59) 12/11/21 13:32 Cholesterol/HDL Ratio 5.82 % 12/11/21 13:32 TSH 3.160 mlU/mL (0.270-4.200) 12/11/21 13:32 Coronavirus (PCR) Positive (Negative) A 12/16/21 08:35 Hepatitis A IgM Ab Non-reactive (NonReactive) 12/11/21 13:32 Hep Bs Antigen Non-reactive (Negative) 12/11/21 13:32 Hep B Core IgM Ab Non-reactive (NonReactive) 12/11/21 13:32 Hepatitis C Antibody Non-reactive (NonReactive) 12/11/21 13:32 [place]/IV: Voiding Method Urinal Active Medications - Current Medications Current Medications: Generic Name Dose Route Start Last Admin Trade Name Freq PRN Reason Stop Dose Admin Ascorbic Acid 500 mg 12/18/21 22:00 12/19/21 09:35 Ascorbic Acid 500 Mg Tab PO 500 mg BID [facility] Administration Aspirin 81 mg 12/11/21 12:00 12/19/21 09:35 Aspirin 81 Mg Tab Chew PO 81 mg QDAY [facility] Administration Atorvastatin Calcium 40 mg 12/11/21 22:00 12/18/21 21:00 Atorvastatin 40 Mg Tab PO 40 mg QHS [facility] Administration Azithromycin 250 mg 12/18/21 15:00 12/19/21 09:35 Azithromycin 250 Mg Tab PO 12/21/21 14:59 250 mg QDAY [facility] Administration Protocol Bupropion HCl 150 mg 12/11/21 12:00 12/19/21 09:35 Bupropion Xl 150 Mg Tab PO 150 mg QDAY [facility] Administration Cholecalciferol 1,000 unit 12/18/21 15:00 12/19/21 09:35 Cholecalciferol (Vit D3) 1000 Unit (25 Mcg) Tab PO 1,000 unit QDAY [facility] Administration Cyanocobalamin 1,000 mcg 12/11/21 12:00 12/19/21 09:34 Cyanocobalamin (Vit B-12) 1000 Mcg Tab PO 1,000 mcg DAILY [facility] Administration Divalproex Sodium 125 mg 12/11/21 12:00 12/19/21 09:[address] 125 Mg Tab PO 125 mg BID [facility] Administration Escitalopram Oxalate 10 mg 12/11/21 22:00 12/18/21 21:00 Escitalopram 10 Mg Tab PO 10 mg QHS [facility] Administration Ibuprofen 800 mg 12/11/21 12:00 12/19/21 09:34 Ibuprofen 800 Mg Tab PO 800 mg DAILY [facility] Administration Latanoprost 1 drops 12/11/21 22:00 12/18/21 20:59 Latanoprost 0.005% Ophth Soln 2.5 Ml OU 1 drops QHS [facility] Administration Prednisone 10 mg 12/19/21 10:00 12/19/21 09:35 Prednisone 10 Mg Tab PO 10 mg QDAY [facility] Administration Quetiapine Fumarate 25 mg 12/11/21 14:00 12/19/21 14:52 Quetiapine 25 Mg Tab PO 25 mg 1400 [facility] Administration Quetiapine Fumarate 50 mg 12/11/21 22:00 12/18/21 21:00 Quetiapine 25 Mg Tab PO 50 mg QHS [facility] Administration Timolol Maleate 1 drops 12/16/21 22:00 12/19/21 09:43 Timolol 0.5% Ophth Soln 5 Ml OU 1 drops BID [facility] Administration Zinc Sulfate 220 mg 12/18/21 22:00 12/19/21 09:35 Zinc Sulfate 220 Mg Cap PO 220 mg BID [facility] Administration Nutrition/Malnutrition Assess - Dietary Evaluation Nutrition/Malnutrition Findings: Nutrition Notes Start: 12/18/21 12:37 Freq: Status: Active Protocol: Document 12/18/21 12:37 BEATA (Rec: 12/18/21 12:41 BEATA [id number]) Nutrition Notes Need for Assessment generated from: LOS Initial or Follow up Brief Note Current Diet Regular Height 6 ft Weight 84 kg [place] Body Weight (kg) 80.90 BMI 25.1 Weight Status Appropriate Subjective/Other Information Pt screened for LOS. He has consumed 65% of meals since admission. 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 Percent of energy/protein needs met: 74% energy 69% pro Burn Absent Trauma Absent Current % PO Fair (50-74%) Minimum of two criteria No Is patient on ventilator? No Is Patient Ambulatory and/or Out of Bed Yes REE-([facility]-ambulatory/OOB) [ 2018.900 [id number]] Calculation Used for Recommendations [facility] Additional Notes Pro needs 1-1.2g/k-101g/ day Fluid needs 1ml/kcal Nutrition Intervention Follow-Up By: 12/25/21 Additional Comments F/U: intakes, wt, need for ONS
[2021-12-19] MEDS: LATANOPROST 0.005% OPHTH SOLN 2.5 ML OU SCH (21:45)
[2021-12-19] MEDS: ESCITALOPRAM 10 MG TAB PO SCH (21:46)
--- NOTE | 2021-12-20 08:58 | Progress Note ---
Subjective Date of service: 12/20/21 Principal diagnosis: Dementia w/Behavioral Disturbance Subjective Comment: 12/20: The patient was seen in his room. He is calm and cooperative " it is pretty outside yeah, I'm the pnly tristen in this room." The patient is [place]. Unable to assess SI/HI/AVHs. No aggressive behavior reported. 12/19:The patient was seen in his room. He is calm and cooperative. He reports doing well. The patient is [place]. Unable to assess SI/HI/AVHs 12/18: The patient was seen in his room. He is calm. He states he is ok. Pt is hard of hearing and blind; unable to state his name. 12/17:The patient was seen today. He is pleasant and polite. He is lying in bed awake. He greats me with "good morning." He says he feels tired. The patient denies SI/HI. He says "Lord, no. I have no reason to do any of that." He denies hallucinations. 12/16:The patient was seen today. He is eating breakfast. He says he feels pretty good. The patient denies SI/HI or hallucinations. The patient is being tested for COVID due to symptoms. 12/15:The patient was seen today. He is lying in bed resting, but easily arouses. He raises up and sits on side of the bed. The patient denies SI/HI or hallucinations. 12/14:The patient was seen today. He is lying in bed resting, but easily arouses. He is calm, and cooperative. He says he feels pretty good today. He says he slept well. The patient denies SI/HI or hallucinations. The patient denied any of incidents that got him admitted into the hospital. 12/13:The patient was seen today. He is calm, and cooperative. The patient is sleeping in the dayroom. He easily arouses, but says he's tired. He says he slept well. The patient denies SI/HI or hallucinations. 12/12:The patient was seen today. He is calm, and cooperative. The patient is pleasant. He says he's doing fine. He denies SI/HI. He says "heck no" when asked. He says his appetite is good. I ask him about why he came in. He says "I didn't know none of that." REVIEW OF SYSTEMS Unable to assess MENTAL STATUS Unable to assess Diagnoses: Dementia with Behavioral Disturbance Treatment Plan Patient will be admitted for inpatient psychiatric evaluation, medication adjustment and close monitoring The patient's behavior, mood, sleep and appetite will be closely monitored. Patient will be enrolled in individual and group therapeutic sessions and encouraged to attend. Patient will be provided with a safe and structured environment. Patient's physical health needs will be addressed by the Hospitalist. Hospitalist Consulted Labs including CBC, CMP, Lipid profile and Hemoglobin A1C ordered Social Assessment will be completed and the Septic Tank Cleaner will work with patient and family to ensure a suitable and safe disposition Medication adjustment will be made as clinically indicated Continue home medications Usual Wellness Presybeterian/Preservation: The patient agreed on the treatment plan, understood the risk, benefit, alternative treatment, potential consequence of no treatment, and gave informed consent. Legal Status: Involuntary Reaction to Hospitalization: Accepting Case staffed with Dr. Roberts Medications and Allergies Medications and Allergies Allergies Allergy/AdvReac Type Severity Reaction Status Date / Time No Known Allergies Allergy Unverified 12/09/21 13:02 Home Medications Medication Instructions Recorded Confirmed Last Taken Type Aspirin [Aspirin BABY CHEW TAB] 81 mg PO QDAY 12/10/21 12/10/21 Unknown History AtorvaSTATin [Lipitor] 40 mg PO QHS 12/10/21 12/10/21 Unknown History Cyanocobalamin [Vitamin B-12] 1,000 mcg PO DAILY 12/10/21 12/10/21 Unknown History Divalproex [Gregor TOLENTINO] 125 mg PO BID 12/10/21 12/10/21 Unknown History Dorzolamide HCl/Timolol Maleat 22.3 mg OU BID 12/10/21 12/10/21 Unknown History [Cosopt Eye Drops] Escitalopram [Lexapro] 10 mg PO QHS 12/10/21 12/10/21 Unknown History Ibuprofen [Motrin 800 MG tab] 800 mg PO DAILY 12/10/21 12/10/21 Unknown History Latanoprost 0.005% [Xalatan 0.005%] 1 drop OU QHS 12/10/21 12/10/21 Unknown History QUEtiapine [SEROquel] 25 mg PO 1400 12/10/21 12/10/21 Unknown History Quetiapine Fumarate [SEROquel] 50 mg PO QHS 12/10/21 12/10/21 Unknown History buPROPion XL [Wellbutrin XL] 150 mg PO QDAY 12/10/21 12/10/21 Unknown History Active Meds: Active Medications Ascorbic Acid (Ascorbic Acid 500 Mg Tab) 500 mg PO BID [facility] Last Admin: 12/19/21 21:47 Dose: 500 mg Aspirin (Aspirin 81 Mg Tab Chew) 81 mg PO QDAY [facility] Last Admin: 12/19/21 09:35 Dose: 81 mg Atorvastatin Calcium (Atorvastatin 40 Mg Tab) 40 mg PO QHS [facility] Last Admin: 12/19/21 21:46 Dose: 40 mg Azithromycin (Azithromycin 250 Mg Tab) 250 mg PO QDAY [facility]; Protocol Stop: 12/21/21 14:59 Last Admin: 12/19/21 09:35 Dose: 250 mg Bupropion HCl (Bupropion Xl 150 Mg Tab) 150 mg PO QDAY [facility] Last Admin: 12/19/21 09:35 Dose: 150 mg Cholecalciferol (Cholecalciferol (Vit D3) 1000 Unit (25 Mcg) Tab) 1,000 unit PO QDAY [facility] Last Admin: 12/19/21 09:35 Dose: 1,000 unit Cyanocobalamin (Cyanocobalamin (Vit B-12) 1000 Mcg Tab) 1,000 mcg PO DAILY [facility] Last Admin: 12/19/21 09:34 Dose: 1,000 mcg Divalproex Sodium (Divalproex Dr 125 Mg Tab) 125 mg PO BID [facility] Last Admin: 12/19/21 21:45 Dose: 125 mg Escitalopram Oxalate (Escitalopram 10 Mg Tab) 10 mg PO QHS [facility] Last Admin: 12/19/21 21:46 Dose: 10 mg Ibuprofen (Ibuprofen 800 Mg Tab) 800 mg PO DAILY [facility] Last Admin: 12/19/21 09:34 Dose: 800 mg Latanoprost (Latanoprost 0.005% Ophth Soln 2.5 Ml) 1 drops OU QHS [facility] Last Admin: 12/19/21 21:45 Dose: 1 drops Prednisone (Prednisone 10 Mg Tab) 10 mg PO QDAY [facility] Last Admin: 12/19/21 09:35 Dose: 10 mg Quetiapine Fumarate (Quetiapine 25 Mg Tab) 25 mg PO 1400 [facility] Last Admin: 12/19/21 14:52 Dose: 25 mg Quetiapine Fumarate (Quetiapine 25 Mg Tab) 50 mg PO QHS [facility] Last Admin: 12/19/21 21:46 Dose: 50 mg Timolol Maleate (Timolol 0.5% Ophth Soln 5 Ml) 1 drops OU BID [facility] Last Admin: 12/19/21 21:46 Dose: 1 drops Zinc Sulfate (Zinc Sulfate 220 Mg Cap) 220 mg PO BID [facility] Last Admin: 12/19/21 21:47 Dose: 220 mg Results - Results Labs/Vitals: Laboratory Last Values WBC 5.3 K/mm3 (4.5-11.0) 12/11/21 13:32 RBC 4.77 M/mm3 (3.65-5.03) 12/11/21 13:32 Hgb 14.1 gm/dl (11.8-15.2) 12/11/21 13:32 Hct 42.0 % (35.5-45.6) 12/11/21 13:32 MCV 88 fl (84-94) 12/11/21 13:32 MCH 30 pg (28-32) 12/11/21 13:32 MCHC 34 % (32-34) 12/11/21 13:32 RDW 14.6 % (13.2-15.2) 12/11/21 13:32 Plt Count 199 K/mm3 (140-440) 12/11/21 13:32 Lymph % (Auto) 26.4 % (13.4-35.0) 12/11/21 13:32 [place] % (Auto) 15.8 % (0.0-7.3) H 12/11/21 13:32 Eos % (Auto) 1.1 % (0.0-4.3) 12/11/21 13:32 Baso % (Auto) 0.4 % (0.0-1.8) 12/11/21 13:32 Lymph # (Auto) 1.4 K/mm3 (1.2-5.4) 12/11/21 13:32 [place] # (Auto) 0.8 K/mm3 (0.0-0.8) 12/11/21 13:32 Eos # (Auto) 0.1 K/mm3 (0.0-0.4) 12/11/21 13:32 Baso # (Auto) 0.0 K/mm3 (0.0-0.1) 12/11/21 13:32 Seg Neutrophils % 56.3 % (40.0-70.0) 12/11/21 13:32 Seg Neutrophils # 3.0 K/mm3 (1.8-7.7) 12/11/21 13:32 Sodium 138 mmol/L (137-145) 12/11/21 13:32 Potassium 4.1 mmol/L (3.6-5.0) 12/11/21 13:32 Chloride 101.4 mmol/L (98-107) 12/11/21 13:32 Carbon Dioxide 24 mmol/L (22-30) 12/11/21 13:32 Anion Gap 17 mmol/L 12/11/21 13:32 BUN 21 mg/dL (9-20) H 12/11/21 13:32 Creatinine 1.4 mg/dL (0.8-1.3) H 12/11/21 13:32 Estimated GFR 48 ml/min 12/11/21 13:32 BUN/Creatinine Ratio 15 % 12/11/21 13:32 Glucose 117 mg/dL (75-100) H 12/11/21 13:32 Hemoglobin A1c 6.1 % (4-6) H 12/11/21 13:32 Calcium 8.7 mg/dL (8.4-10.2) 12/11/21 13:32 Total Bilirubin 0.50 mg/dL (0.1-1.2) 12/11/21 13:32 AST 45 units/L (5-40) H 12/11/21 13:32 ALT 50 units/L (7-56) 12/11/21 13:32 Alkaline Phosphatase 69 units/L (35-129) 12/11/21 13:32 Total Protein 6.1 g/dL (6.3-8.2) L 12/11/21 13:32 Albumin 4.0 g/dL (3.9-5) 12/11/21 13:32 Albumin/Globulin Ratio 1.9 % 12/11/21 13:32 Triglycerides 251 mg/dL (2-149) H 12/11/21 13:32 Cholesterol 239 mg/dL (50-199) H 12/11/21 13:32 LDL Cholesterol Direct 158 mg/dL (50-130) H 12/11/21 13:32 HDL Cholesterol 41 mg/dL (40-59) 12/11/21 13:32 Cholesterol/HDL Ratio 5.82 % 12/11/21 13:32 TSH 3.160 mlU/mL (0.270-4.200) 12/11/21 13:32 Coronavirus (PCR) Positive (Negative) A 12/16/21 08:35 Hepatitis A IgM Ab Non-reactive (NonReactive) 12/11/21 13:32 Hep Bs Antigen Non-reactive (Negative) 12/11/21 13:32 Hep B Core IgM Ab Non-reactive (NonReactive) 12/11/21 13:32 Hepatitis C Antibody Non-reactive (NonReactive) 12/11/21 13:32 Last Vital Signs Temp 98.6 F 12/19/21 21:19 Pulse 98 H 12/19/21 23:25 Resp 18 12/19/21 21:19 BP 175/92 12/19/21 21:19 Pulse Ox 96 12/19/21 23:25
[2021-12-20] MEDS: buPROPion XL 150 MG TAB PO SCH (10:17)
[2021-12-20] MEDS: DIVALPROEX DR 125 MG TAB PO SCH ×2 (10:17→21:01)
[2021-12-20] MEDS: TIMOLOL 0.5% OPHTH SOLN 5 ML OU SCH ×2 (10:17→21:03)
[2021-12-20] MEDS: IBUPROFEN 800 MG TAB PO SCH (10:18)
[2021-12-20] MEDS: predniSONE 10 MG TAB PO SCH (10:18)
[2021-12-20] MEDS: CYANOCOBALAMIN (VIT B-12) 1000 MCG TAB PO SCH (10:18)
[2021-12-20] MEDS: ASPIRIN 81 MG TAB CHEW PO SCH (10:18)
[2021-12-20] MEDS: CHOLECALCIFEROL (VIT D3) 1000 UNIT (25 mcg) TAB PO SCH (10:18)
[2021-12-20] MEDS: ZINC SULFATE 220 MG CAP PO SCH ×2 (10:18→21:04)
[2021-12-20] MEDS: AZITHROMYCIN 250 MG TAB PO SCH (10:18)
[2021-12-20] MEDS: ASCORBIC ACID 500 MG TAB PO SCH ×2 (10:18→21:04)
[2021-12-20] MEDS: QUEtiapine 25 MG TAB PO SCH ×2 (14:14→21:02)
--- NOTE | 2021-12-20 17:17 | Progress Note ---
Assessment and Plan Assessment and Plan - Patient Problems (1) Coronavirus infection Current Visit: Yes Status: Acute Plan to address problem: Vitamin D therapy, vitamin C therapy, zinc, or steroid therapy, oral antibiotic therapy, (2) Vascular dementia with behavior disturbance Current Visit: Yes Status: Acute Plan to address problem: Verbal prompting, verbal redirection, benzodiazepine therapy as clinically indicated (3) Cerebral atherosclerosis Current Visit: Yes Status: Acute Plan to address problem: Risk factor reduction, antiplatelet therapy as clinically indicated. (4) Hypertension Current Visit: Yes Status: Acute Qualifiers: Hypertension type: primary hypertension Qualified Code(s): I10 - Essential (primary) hypertension Plan to address problem: Monitor blood pressure every shift, continue medical management. (5) Hyperlipidemia Current Visit: Yes Status: Acute Qualifiers: Hyperlipidemia type: mixed hyperlipidemia Qualified Code(s): E78.2 - Mixed hyperlipidemia Plan to address problem: Low-cholesterol diet, supportive care. (6) Depression Current Visit: Yes Status: Acute Plan to address problem: Continue medical management, supportive care. (7) Advance care planning Current Visit: Yes Status: Acute Plan to address problem: Disease education conducted, care plan discussed, diagnoses discussed, prognosis discussed, patient is full code, +30 minutes. (8) Preventative health care Current Visit: Yes Status: Acute Plan to address problem: Patient counseled regarding home safety precautions, outpatient follow-up with primary care physician for all age and risk factor appropriate screening test. +30 minutes. Subjective Date of service: 12/20/21 Principal diagnosis: Dementia w/Behavioral Disturbance Interval history: History Interval history: 86 YO Female with Vascular Dementia with behavioral disturbance, Cerebral Atherosclerosis, HLD, HTN, MDD admitted to [facility] for psychiatric stabilization. Consult placed by Dr. Iglesias for medical management. Patient seen and evaluated in the recreation room. Patient appears to be at baseline level of cognition and function. Pt found to be coronavirus positive with mild cough. Objective - Constitutional General appearance: Present: no acute distress, well-nourished - EENT Eyes: PERRL, EOM intact ENT: hearing intact, clear oral mucosa Ears: bilateral: normal - Neck Neck: supple, normal ROM - Respiratory Respiratory effort: normal Respiratory: bilateral: CTA - Breasts Breasts: normal - Cardiovascular Heart rate: 78 Rhythm: regular Heart Sounds: Present: S1 & S2. Absent: gallop, rub Extremities: pulses intact, No edema, normal color, Full ROM - Gastrointestinal General gastrointestinal: Present: soft, non-tender, non-distended, normal bowel sounds - Genitourinary Male genitourinary: normal - Integumentary Integumentary: clear, warm, dry - Musculoskeletal Musculoskeletal: 1, strength equal bilaterally - Neurologic Neurologic: moves all extremities - Psychiatric Psychiatric: memory intact, appropriate mood/affect, intact judgment & insight - Labs CBC & Chem 7: 12/11/21 13:32 12/11/21 13:32
[2021-12-20] MEDS: LATANOPROST 0.005% OPHTH SOLN 2.5 ML OU SCH (21:01)
[2021-12-20] MEDS: ESCITALOPRAM 10 MG TAB PO SCH (21:02)
--- NOTE | 2021-12-21 10:10 | Progress Note ---
Subjective Date of service: 12/21/21 Principal diagnosis: Dementia w/Behavioral Disturbance Subjective Comment: 12/21:The patient was seen in his room. The patient is calm and pleasant. He states he is doing fine. The patient denies SI/HI or hallucinations. 12/20: The patient was seen in his room. He is calm and cooperative " it is pretty outside yeah, I'm the only tristen in this room." The [place] Unable to assess SI/HI/AVHs. No aggressive behavior reported. 12/19:The patient was seen in his room. He is calm and cooperative. He reports doing well. The patient [place] Unable to assess SI/HI/AVHs 12/18: The patient was seen in his room. He is calm. He states he is ok. Pt is hard of hearing and blind; unable to state his name. 12/17:The patient was seen today. He is pleasant and polite. He is lying in bed awake. He greats me with "good morning." He says he feels tired. The patient denies SI/HI. He says "Lord, no. I have no reason to do any of that." He denies hallucinations. 12/16:The patient was seen today. He is eating breakfast. He says he feels pretty good. The patient denies SI/HI or hallucinations. The patient is being tested for COVID due to symptoms. 12/15:The patient was seen today. He is lying in bed resting, but easily arouses. He raises up and sits on side of the bed. The patient denies SI/HI or hallucinations. 12/14:The patient was seen today. He is lying in bed resting, but easily arouses. He is calm, and cooperative. He says he feels pretty good today. He says he slept well. The patient denies SI/HI or hallucinations. The patient denied any of incidents that got him admitted into the hospital. 12/13:The patient was seen today. He is calm, and cooperative. The patient is sleeping in the dayroom. He easily arouses, but says he's tired. He says he slept well. The patient denies SI/HI or hallucinations. 12/12:The patient was seen today. He is calm, and cooperative. The patient is pleasant. He says he's doing fine. He denies SI/HI. He says "heck no" when asked. He says his appetite is good. I ask him about why he came in. He says "I didn't know none of that." REVIEW OF SYSTEMS Unable to assess MENTAL STATUS Unable to assess Diagnoses: Dementia with Behavioral Disturbance Treatment Plan Patient will be admitted for inpatient psychiatric evaluation, medication adj ustment and close monitoring The patient's behavior, mood, sleep and appetite will be closely monitored. Patient will be enrolled in individual and group therapeutic sessions and encouraged to attend. Patient will be provided with a safe and structured environment. Patient's physical health needs will be addressed by the Hospitalist. Hospitalist Consulted Labs including CBC, CMP, Lipid profile and Hemoglobin A1C ordered Social Assessment will be completed and the Annealing Torch Operator will work with patient and family to ensure a suitable and safe disposition Medication adjustment will be made as clinically indicated Continue home medications Usual Wellness Mandaen/Preservation: The patient agreed on the treatment plan, understood the risk, benefit, alternative treatment, potential consequence of no treatment, and gave informed consent. Legal Status: Involuntary Reaction to Hospitalization: Accepting Case staffed with Dr. Roberts Medications and Allergies Medications and Allergies Allergies Allergy/AdvReac Type Severity Reaction Status Date / Time No Known Allergies Allergy Unverified 12/09/21 13:02 Home Medications Medication Instructions Recorded Confirmed Last Taken Type Aspirin [Aspirin BABY CHEW TAB] 81 mg PO QDAY 12/10/21 12/10/21 Unknown History AtorvaSTATin [Lipitor] 40 mg PO QHS 12/10/21 12/10/21 Unknown History Cyanocobalamin [Vitamin B-12] 1,000 mcg PO DAILY 12/10/21 12/10/21 Unknown History Divalproex [Gregor TOLENTINO] 125 mg PO BID 12/10/21 12/10/21 Unknown History Dorzolamide HCl/Timolol Maleat 22.3 mg OU BID 12/10/21 12/10/21 Unknown History [Cosopt Eye Drops] Escitalopram [Lexapro] 10 mg PO QHS 12/10/21 12/10/21 Unknown History Ibuprofen [Motrin 800 MG tab] 800 mg PO DAILY 12/10/21 12/10/21 Unknown History Latanoprost 0.005% [Xalatan 0.005%] 1 drop OU QHS 12/10/21 12/10/21 Unknown History QUEtiapine [SEROquel] 25 mg PO 1400 12/10/21 12/10/21 Unknown History Quetiapine Fumarate [SEROquel] 50 mg PO QHS 12/10/21 12/10/21 Unknown History buPROPion XL [Wellbutrin XL] 150 mg PO QDAY 12/10/21 12/10/21 Unknown History Active Meds: Active Medications Ascorbic Acid (Ascorbic Acid 500 Mg Tab) 500 mg PO BID [facility] Last Admin: 12/20/21 21:04 Dose: 500 mg Aspirin (Aspirin 81 Mg Tab Chew) 81 mg PO QDAY [facility] Last Admin: 12/20/21 10:18 Dose: 81 mg Atorvastatin Calcium (Atorvastatin 40 Mg Tab) 40 mg PO QHS [facility] Last Admin: 12/20/21 21:02 Dose: 40 mg Azithromycin (Azithromycin 250 Mg Tab) 250 mg PO QDAY [facility]; Protocol Stop: 12/21/21 14:59 Last Admin: 12/20/21 10:18 Dose: 250 mg Bupropion HCl (Bupropion Xl 150 Mg Tab) 150 mg PO QDAY [facility] Last Admin: 12/20/21 10:17 Dose: 150 mg Cholecalciferol (Cholecalciferol (Vit D3) 1000 Unit (25 Mcg) Tab) 1,000 unit PO QDAY [facility] Last Admin: 12/20/21 10:18 Dose: 1,000 unit Cyanocobalamin (Cyanocobalamin (Vit B-12) 1000 Mcg Tab) 1,000 mcg PO DAILY [facility] Last Admin: 12/20/21 10:18 Dose: 1,000 mcg Divalproex Sodium (Divalproex Dr 125 Mg Tab) 125 mg PO BID [facility] Last Admin: 12/20/21 21:01 Dose: 125 mg Escitalopram Oxalate (Escitalopram 10 Mg Tab) 10 mg PO QHS [facility] Last Admin: 12/20/21 21:02 Dose: 10 mg Ibuprofen (Ibuprofen 800 Mg Tab) 800 mg PO DAILY [facility] Last Admin: 12/20/21 10:18 Dose: 800 mg Latanoprost (Latanoprost 0.005% Ophth Soln 2.5 Ml) [facility] Admin: 12/20/21 21:01 Dose: 1 drops Prednisone (Prednisone 10 Mg Tab) 10 mg PO QDAY [facility] Last Admin: 12/20/21 10:18 Dose: 10 mg Quetiapine Fumarate (Quetiapine 25 Mg Tab) 25 mg PO 1400 [facility] Last Admin: 12/20/21 14:14 Dose: 25 mg Quetiapine Fumarate (Quetiapine 25 Mg Tab) 50 mg PO QHS [facility] Last Admin: 12/20/21 21:02 Dose: 50 mg Timolol Maleate (Timolol 0.5% Ophth Soln 5 Ml) 1 drops OU BID [facility] Last Admin: 12/20/21 21:03 Dose: 1 drops Zinc Sulfate (Zinc Sulfate 220 Mg Cap) 220 mg PO BID [facility] Last Admin: 12/20/21 21:04 Dose: 220 mg Results - Results Labs/Vitals: Laboratory Last Values WBC 5.3 K/mm3 (4.5-11.0) 12/11/21 13:32 RBC 4.77 M/mm3 (3.65-5.03) 12/11/21 13:32 Hgb 14.1 gm/dl (11.8-15.2) 12/11/21 13:32 Hct 42.0 % (35.5-45.6) 12/11/21 13:32 MCV 88 fl (84-94) 12/11/21 13:32 MCH 30 pg (28-32) 12/11/21 13:32 MCHC 34 % (32-34) 12/11/21 13:32 RDW 14.6 % (13.2-15.2) 12/11/21 13:32 Plt Count 199 K/mm3 (140-440) 12/11/21 13:32 Lymph % (Auto) 26.4 % (13.4-35.0) 12/11/21 13:32 [place] % (Auto) 15.8 % (0.0-7.3) H 12/11/21 13:32 Eos % (Auto) 1.1 % (0.0-4.3) 12/11/21 13:32 Baso % (Auto) 0.4 % (0.0-1.8) 12/11/21 13:32 Lymph # (Auto) 1.4 K/mm3 (1.2-5.4) 12/11/21 13:32 [place] # (Auto) 0.8 K/mm3 (0.0-0.8) 12/11/21 13:32 Eos # (Auto) 0.1 K/mm3 (0.0-0.4) 12/11/21 13:32 Baso # (Auto) 0.0 K/mm3 (0.0-0.1) 12/11/21 13:32 Seg Neutrophils % 56.3 % (40.0-70.0) 12/11/21 13:32 Seg Neutrophils # 3.0 K/mm3 (1.8-7.7) 12/11/21 13:32 Sodium 138 mmol/L (137-145) 12/11/21 13:32 Potassium 4.1 mmol/L (3.6-5.0) 12/11/21 13:32 Chloride 101.4 mmol/L (98-107) 12/11/21 13:32 Carbon Dioxide 24 mmol/L (22-30) 12/11/21 13:32 Anion Gap 17 mmol/L 12/11/21 13:32 BUN 21 mg/dL (9-20) H 12/11/21 13:32 Creatinine 1.4 mg/dL (0.8-1.3) H 12/11/21 13:32 Estimated GFR 48 ml/min 12/11/21 13:32 BUN/Creatinine Ratio 15 % 12/11/21 13:32 Glucose 117 mg/dL (75-100) H 12/11/21 13:32 Hemoglobin A1c 6.1 % (4-6) H 12/11/21 13:32 Calcium 8.7 mg/dL (8.4-10.2) 12/11/21 13:32 Total Bilirubin 0.50 mg/dL (0.1-1.2) 12/11/21 13:32 AST 45 units/L (5-40) H 12/11/21 13:32 ALT 50 units/L (7-56) 12/11/21 13:32 Alkaline Phosphatase 69 units/L (35-129) 12/11/21 13:32 Total Protein 6.1 g/dL (6.3-8.2) L 12/11/21 13:32 Albumin 4.0 g/dL (3.9-5) 12/11/21 13:32 Albumin/Globulin Ratio 1.9 % 12/11/21 13:32 Triglycerides 251 mg/dL (2-149) H 12/11/21 13:32 Cholesterol 239 mg/dL (50-199) H 12/11/21 13:32 LDL Cholesterol Direct 158 mg/dL (50-130) H 12/11/21 13:32 HDL Cholesterol 41 mg/dL (40-59) 12/11/21 13:32 Cholesterol/HDL Ratio 5.82 % 12/11/21 13:32 TSH 3.160 mlU/mL (0.270-4.200) 12/11/21 13:32 Coronavirus (PCR) Positive (Negative) A 12/16/21 08:35 Hepatitis A IgM Ab Non-reactive (NonReactive) 12/11/21 13:32 Hep Bs Antigen Non-reactive (Negative) 12/11/21 13:32 Hep B Core IgM Ab Non-reactive (NonReactive) 12/11/21 13:32 Hepatitis C Antibody Non-reactive (NonReactive) 12/11/21 13:32 Last Vital Signs Temp 97.3 F L 12/20/21 19:08 Pulse 70 12/20/21 19:08 Resp 18 12/20/21 19:08 BP 169/91 12/20/21 19:08 Pulse Ox 95 12/20/21 19:08
[2021-12-21] MEDS: IBUPROFEN 800 MG TAB PO SCH (12:06)
[2021-12-21] MEDS: buPROPion XL 150 MG TAB PO SCH (12:07)
[2021-12-21] MEDS: CHOLECALCIFEROL (VIT D3) 1000 UNIT (25 mcg) TAB PO SCH (12:07)
[2021-12-21] MEDS: ASPIRIN 81 MG TAB CHEW PO SCH (12:08)
[2021-12-21] MEDS: DIVALPROEX DR 125 MG TAB PO SCH ×2 (12:08→21:08)
[2021-12-21] MEDS: ZINC SULFATE 220 MG CAP PO SCH ×2 (12:08→21:10)
[2021-12-21] MEDS: CYANOCOBALAMIN (VIT B-12) 1000 MCG TAB PO SCH (12:08)
[2021-12-21] MEDS: predniSONE 10 MG TAB PO SCH (12:13)
[2021-12-21] MEDS: AZITHROMYCIN 250 MG TAB PO SCH (12:13)
[2021-12-21] MEDS: ASCORBIC ACID 500 MG TAB PO SCH ×2 (12:13→21:10)
[2021-12-21] MEDS: TIMOLOL 0.5% OPHTH SOLN 5 ML OU SCH ×2 (12:14→21:08)
[2021-12-21] MEDS: QUEtiapine 25 MG TAB PO SCH ×2 (14:00→21:09)
[2021-12-21] MEDS: LATANOPROST 0.005% OPHTH SOLN 2.5 ML OU SCH (21:08)
[2021-12-21] MEDS: ESCITALOPRAM 10 MG TAB PO SCH (21:09)
--- NOTE | 2021-12-22 07:25 | Progress Note ---
Assessment and Plan Assessment and Plan - Patient Problems (1) Coronavirus infection Current Visit: Yes Status: Acute Plan to address problem: Vitamin D therapy, vitamin C therapy, zinc, or steroid therapy, oral antibiotic therapy, (2) Vascular dementia with behavior disturbance Current Visit: Yes Status: Acute Plan to address problem: Verbal prompting, verbal redirection, benzodiazepine therapy as clinically indicated (3) Cerebral atherosclerosis Current Visit: Yes Status: Acute Plan to address problem: Risk factor reduction, antiplatelet therapy as clinically indicated. (4) Hypertension Current Visit: Yes Status: Acute Qualifiers: Hypertension type: primary hypertension Qualified Code(s): I10 - Essential (primary) hypertension Plan to address problem: Monitor blood pressure every shift, continue medical management. (5) Hyperlipidemia Current Visit: Yes Status: Acute Qualifiers: Hyperlipidemia type: mixed hyperlipidemia Qualified Code(s): E78.2 - Mixed hyperlipidemia Plan to address problem: Low-cholesterol diet, supportive care. (6) Depression Current Visit: Yes Status: Acute Plan to address problem: Continue medical management, supportive care. (7) Advance care planning Current Visit: Yes Status: Acute Plan to address problem: Disease education conducted, care plan discussed, diagnoses discussed, prognosis discussed, patient is full code, +30 minutes. (8) Preventative health care Current Visit: Yes Status: Acute Plan to address problem: Patient counseled regarding home safety precautions, outpatient follow-up with primary care physician for all age and risk factor appropriate screening test. +30 minutes. Subjective Date of service: 12/21/21 Principal diagnosis: Dementia w/Behavioral Disturbance Interval history: History Interval history: 86 YO Female with Vascular Dementia with behavioral disturbance, Cerebral Atherosclerosis, HLD, HTN, MDD admitted to [facility] for psychiatric stabilization. Consult placed by Dr. Iglesias for medical management. Patient seen and evaluated in the recreation room. Patient appears to be at baseline level of cognition and function. Pt found to be coronavirus positive with mild cough. Objective - Constitutional Vitals: Vital Signs - 12hr 12/21/21 20:08 Temperature 97.5 F L Pulse Rate 57 L Respiratory 17 Rate Blood Pressure 161/72 O2 Sat by Pulse 94 Oximetry General appearance: Present: no acute distress, well-nourished - EENT Eyes: PERRL, EOM intact ENT: hearing intact, clear oral mucosa Ears: bilateral: normal - Neck Neck: supple, normal ROM - Respiratory Respiratory effort: normal Respiratory: bilateral: CTA - Breasts Breasts: normal - Cardiovascular Heart rate: 78 Rhythm: regular Heart Sounds: Present: S1 & S2. Absent: gallop, rub Extremities: pulses intact, No edema, normal color, Full ROM - Gastrointestinal General gastrointestinal: Present: soft, non-tender, non-distended, normal bowel sounds - Genitourinary Male genitourinary: normal - Integumentary Integumentary: clear, warm, dry - Musculoskeletal Musculoskeletal: 1, strength equal bilaterally - Neurologic Neurologic: moves all extremities - Psychiatric Psychiatric: memory intact, appropriate mood/affect, intact judgment & insight - Labs CBC & Chem 7: 12/11/21 13:32 12/11/21 13:32
[2021-12-22 07:56] VITALS: BP 147/54
--- NOTE | 2021-12-22 09:35 | Progress Note ---
Subjective Date of service: 12/22/21 Principal diagnosis: Dementia w/Behavioral Disturbance Subjective Comment: 12/22:The patient was seen in his room. The patient is resting quietly. No aggressive behavior reported. 12/21:The patient was seen in his room. The patient is calm and pleasant. He states he is doing fine. The patient denies SI/HI or hallucinations. 12/20: The patient was seen in his room. He is calm and cooperative " it is pretty outside yeah, I'm the only tristen in this room." The patient is ATKA. Unable to assess SI/HI/AVHs. No aggressive behavior reported. 12/19:The patient was seen in his room. He is calm and cooperative. He reports doing well. The patient is ATKA. Unable to assess SI/HI/AVHs 12/18: The patient was seen in his room. He is calm. He states he is ok. Pt is hard of hearing and blind; unable to state his name. 12/17:The patient was seen today. He is pleasant and polite. He is lying in bed awake. He greats me with "good morning." He says he feels tired. The patient denies SI/HI. He says "Lord, no. I have no reason to do any of that." He denies hallucinations. 12/16:The patient was seen today. He is eating breakfast. He says he feels pretty good. The patient denies SI/HI or hallucinations. The patient is being tested for COVID due to symptoms. 12/15:The patient was seen today. He is lying in bed resting, but easily arouses. He raises up and sits on side of the bed. The patient denies SI/HI or hallucinations. 12/14:The patient was seen today. He is lying in bed resting, but easily arouses. He is calm, and cooperative. He says he feels pretty good today. He says he slept well. The patient denies SI/HI or hallucinations. The patient denied any of incidents that got him admitted into the hospital. 12/13:The patient was seen today. He is calm, and cooperative. The patient is sleeping in the dayroom. He easily arouses, but says he's tired. He says he slept well. The patient denies SI/HI or hallucinations. 12/12:The patient was seen today. He is calm, and cooperative. The patient is pleasant. He says he's doing fine. He denies SI/HI. He says "heck no" when asked. He says his appetite is good. I ask him about why he came in. He says "I didn't know none of that." REVIEW OF SYSTEMS Unable to assess MENTAL STATUS Unable to assess Diagnoses: Dementia with Behavioral Disturbance Treatment Plan Patient will be admitted for inpatient psychiatric evaluation, medication adjustment and close monitoring The patient's behavior, mood, sleep and appetite will be closely monitored. Patient will be enrolled in individual and group therapeutic sessions and encouraged to attend. Patient will be provided with a safe and structured environment. Patient's physical health needs will be addressed by the Hospitalist. Hospitalist Consulted Labs including CBC, CMP, Lipid profile and Hemoglobin A1C ordered Social Assessment will be completed and the Space Technologist will work with patient and family to ensure a suitable and safe disposition Medication adjustment will be made as clinically indicated Continue home medications [facility]: The patient agreed on the treatment plan, understood the risk, benefit, alternative treatment, potential consequence of no treatment, and gave informed consent. Legal Status: Involuntary Reaction to Hospitalization: Accepting Case staffed with Dr. Roberts Medications and Allergies Medications and Allergies Allergies Allergy/AdvReac Type Severity Reaction Status Date / Time No Known Allergies Allergy Unverified 12/09/21 13:02 Home Medications Medication Instructions Recorded Confirmed Last Taken Type Aspirin [Aspirin BABY CHEW TAB] 81 mg PO QDAY 12/10/21 12/10/21 Unknown History AtorvaSTATin [Lipitor] 40 mg PO QHS 12/10/21 12/10/21 Unknown History Cyanocobalamin [Vitamin B-12] 1,000 mcg PO DAILY 12/10/21 12/10/21 Unknown History Divalproex [Gregor TOLENTINO] 125 mg PO BID 12/10/21 12/10/21 Unknown History Dorzolamide HCl/Timolol Maleat 22.3 mg OU BID 12/10/21 12/10/21 Unknown History [Cosopt Eye Drops] Escitalopram [Lexapro] 10 mg PO QHS 12/10/21 12/10/21 Unknown History Ibuprofen [Motrin 800 MG tab] 800 mg PO DAILY 12/10/21 12/10/21 Unknown History Latanoprost 0.005% [Xalatan 0.005%] 1 drop OU QHS 12/10/21 12/10/21 Unknown History QUEtiapine [SEROquel] 25 mg PO 1400 12/10/21 12/10/21 Unknown History Quetiapine Fumarate [SEROquel] 50 mg PO QHS 12/10/21 12/10/21 Unknown History buPROPion XL [Wellbutrin XL] 150 mg PO QDAY 12/10/21 12/10/21 Unknown History Active Meds: Active Medications Ascorbic Acid (Ascorbic Acid 500 Mg Tab) 500 mg PO BID [facility] Last Admin: 12/21/21 21:10 Dose: 500 mg Aspirin (Aspirin 81 Mg Tab Chew) 81 mg PO QDAY [facility] Last Admin: 12/21/21 12:08 Dose: 81 mg Atorvastatin Calcium (Atorvastatin 20 Mg Tab) 40 mg PO QHS [facility] Last Admin: 12/21/21 21:09 Dose: 40 mg Bupropion HCl (Bupropion Xl 150 Mg Tab) 150 mg PO QDAY [facility] Last Admin: 12/21/21 12:07 Dose: 150 mg Cholecalciferol (Cholecalciferol (Vit D3) 1000 Unit (25 Mcg) Tab) 1,000 unit PO QDAY [facility] Last Admin: 12/21/21 12:07 Dose: 1,000 unit Cyanocobalamin (Cyanocobalamin (Vit B-12) 1000 Mcg Tab) 1,000 mcg PO DAILY [facility] Last Admin: 12/21/21 12:08 Dose: 1,000 mcg Divalproex Sodium (Divalproex Dr 125 Mg Tab) 125 mg PO BID [facility] Last Admin: 12/21/21 21:08 Dose: 125 mg Escitalopram Oxalate (Escitalopram 10 Mg Tab) 10 mg PO QHS [facility] Last Admin: 12/21/21 21:09 Dose: 10 mg Ibuprofen (Ibuprofen 800 Mg Tab) 800 mg PO DAILY [facility] Last Admin: 12/21/21 12:06 Dose: 800 mg Latanoprost (Latanoprost 0.005% Ophth Soln 2.5 Ml) 1 drops OU QHS [facility] Last Admin: 12/21/21 21:08 Dose: 1 drops Prednisone (Prednisone 10 Mg Tab) 10 mg PO QDAY [facility] Last Admin: 12/21/21 12:13 Dose: 10 mg Quetiapine Fumarate (Quetiapine 25 Mg Tab) 25 mg PO 1400 [facility] Last Admin: 12/21/21 14:00 Dose: Not Given Quetiapine Fumarate (Quetiapine 25 Mg Tab) 50 mg PO QHS [facility] Last Admin: 12/21/21 21:09 Dose: 50 mg Timolol Maleate (Timolol 0.5% Ophth Soln 5 Ml) 1 drops OU BID [facility] Last Admin: 12/21/21 21:08 Dose: 1 drops Zinc Sulfate (Zinc Sulfate 220 Mg Cap) 220 mg PO BID [facility] Last Admin: 12/21/21 21:10 Dose: 220 mg Results - Results Labs/Vitals: Laboratory Last Values WBC 5.3 K/mm3 (4.5-11.0) 12/11/21 13:32 RBC 4.77 M/mm3 (3.65-5.03) 12/11/21 13:32 Hgb 14.1 gm/dl (11.8-15.2) 12/11/21 13:32 Hct 42.0 % (35.5-45.6) 12/11/21 13:32 MCV 88 fl (84-94) 12/11/21 13:32 MCH 30 pg (28-32) 12/11/21 13:32 MCHC 34 % (32-34) 12/11/21 13:32 RDW 14.6 % (13.2-15.2) 12/11/21 13:32 Plt Count 199 K/mm3 (140-440) 12/11/21 13:32 Lymph % (Auto) 26.4 % (13.4-35.0) 12/11/21 13:32 [place] % (Auto) 15.8 % (0.0-7.3) H 12/11/21 13:32 Eos % (Auto) 1.1 % (0.0-4.3) 12/11/21 13:32 Baso % (Auto) 0.4 % (0.0-1.8) 12/11/21 13:32 Lymph # (Auto) 1.4 K/mm3 (1.2-5.4) 12/11/21 13:32 [place] # (Auto) 0.8 K/mm3 (0.0-0.8) 12/11/21 13:32 Eos # (Auto) 0.1 K/mm3 (0.0-0.4) 12/11/21 13:32 Baso # (Auto) 0.0 K/mm3 (0.0-0.1) 12/11/21 13:32 Seg Neutrophils % 56.3 % (40.0-70.0) 12/11/21 13:32 Seg Neutrophils # 3.0 K/mm3 (1.8-7.7) 12/11/21 13:32 Sodium 138 mmol/L (137-145) 12/11/21 13:32 Potassium 4.1 mmol/L (3.6-5.0) 12/11/21 13:32 Chloride 101.4 mmol/L (98-107) 12/11/21 13:32 Carbon Dioxide 24 mmol/L (22-30) 12/11/21 13:32 Anion Gap 17 mmol/L 12/11/21 13:32 BUN 21 mg/dL (9-20) H 12/11/21 13:32 Creatinine 1.4 mg/dL (0.8-1.3) H 12/11/21 13:32 Estimated GFR 48 ml/min 12/11/21 13:32 BUN/Creatinine Ratio 15 % 12/11/21 13:32 Glucose 117 mg/dL (75-100) H 12/11/21 13:32 Hemoglobin A1c 6.1 % (4-6) H 12/11/21 13:32 Calcium 8.7 mg/dL (8.4-10.2) 12/11/21 13:32 Total Bilirubin 0.50 mg/dL (0.1-1.2) 12/11/21 13:32 AST 45 units/L (5-40) H 12/11/21 13:32 ALT 50 units/L (7-56) 12/11/21 13:32 Alkaline Phosphatase 69 units/L (35-129) 12/11/21 13:32 Total Protein 6.1 g/dL (6.3-8.2) L 12/11/21 13:32 Albumin 4.0 g/dL (3.9-5) 12/11/21 13:32 Albumin/Globulin Ratio 1.9 % 12/11/21 13:32 Triglycerides 251 mg/dL (2-149) H 12/11/21 13:32 Cholesterol 239 mg/dL (50-199) H 12/11/21 13:32 LDL Cholesterol Direct 158 mg/dL (50-130) H 12/11/21 13:32 HDL Cholesterol 41 mg/dL (40-59) 12/11/21 13:32 Cholesterol/HDL Ratio 5.82 % 12/11/21 13:32 TSH 3.160 mlU/mL (0.270-4.200) 12/11/21 13:32 Coronavirus (PCR) Positive (Negative) A 12/16/21 08:35 Hepatitis A IgM Ab Non-reactive (NonReactive) 12/11/21 13:32 Hep Bs Antigen Non-reactive (Negative) 12/11/21 13:32 Hep B Core IgM Ab Non-reactive (NonReactive) 12/11/21 13:32 Hepatitis C Antibody Non-reactive (NonReactive) 12/11/21 13:32 Last Vital Signs Temp 98.1 F 12/22/21 07:30 Pulse 46 L 12/22/21 07:30 Resp 17 12/22/21 07:30 BP 147/54 12/22/21 07:30 Pulse Ox 90 12/22/21 07:30
--- NOTE | 2021-12-22 10:33 | Discharge Summary ---
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 The patients mood, cognition, behavior, motivation, compliance to treatment and appreciation on family/social support are improved and stabilized. At the time of discharge, the patient had no suicidal ideas, no homicidal ideas, no aggressive thoughts, no endangering behavior and no debilitating adverse effects. The patient agreed on the treatment plan, understood the risk, benefit, alternative treatment, potential consequence of no treatment, and gave informed consent. Progress note: 12/22:The patient was seen in his room. The patient is resting quietly. No aggressive behavior reported. 12/21:The patient was seen in his room. The patient is calm and pleasant. He states he is doing fine. The patient denies SI/HI or hallucinations. 12/20: The patient was seen in his room. He is calm and cooperative " it is pretty outside yeah, I'm the only tristen in this room." The patient is [place]. Unable to assess SI/HI/AVHs. No aggressive behavior reported. 12/19:The patient was seen in his room. He is calm and cooperative. He reports doing well. The patient is [place]. Unable to assess SI/HI/AVHs 12/18: The patient was seen in his room. He is calm. He states he is ok. Pt is hard of hearing and blind; unable to state his name. 12/17:The patient was seen today. He is pleasant and polite. He is lying in bed awake. He greats me with "good morning." He says he feels tired. The patient denies SI/HI. He says "Lord, no. I have no reason to do any of that." He denies hallucinations. 12/16:The patient was seen today. He is eating breakfast. He says he feels pretty good. The patient denies SI/HI or hallucinations. The patient is being tested for COVID due to symptoms. 12/15:The patient was seen today. He is lying in bed resting, but easily arouses. He raises up and sits on side of the bed. The patient denies SI/HI or hallucinations. 12/14:The patient was seen today. He is lying in bed resting, but easily arouses. He is calm, and cooperative. He says he feels pretty good today. He says he slept well. The patient denies SI/HI or hallucinations. The patient denied any of incidents that got him admitted into the hospital. 12/13:The patient was seen today. He is calm, and cooperative. The patient is sleeping in the dayroom. He easily arouses, but says he's tired. He says he slept well. The patient denies SI/HI or hallucinations. 12/12:The patient was seen today. He is calm, and cooperative. The patient is pleasant. He says he's doing fine. He denies SI/HI. He says "heck no" when asked. He says his appetite is good. I ask him about why he came in. He says "I didn't know none of that." Disposition: 30 STILL A PATIENT Allergies/Adverse Reactions: Allergies No Known Allergies Allergy (Unverified 12/09/21 13:02) Vital Signs: Last Vital Signs Temp 98.1 F 12/22/21 07:30 Pulse 46 L 12/22/21 07:30 Resp 17 12/22/21 07:30 BP 147/54 12/22/21 07:30 Pulse Ox 90 12/22/21 07:30 Last Lab: Laboratory Last Values WBC 5.3 K/mm3 (4.5-11.0) 12/11/21 13:32 RBC 4.77 M/mm3 (3.65-5.03) 12/11/21 13:32 Hgb 14.1 gm/dl (11.8-15.2) 12/11/21 13:32 Hct 42.0 % (35.5-45.6) 12/11/21 13:32 MCV 88 fl (84-94) 12/11/21 13:32 MCH 30 pg (28-32) 12/11/21 13:32 MCHC 34 % (32-34) 12/11/21 13:32 RDW 14.6 % (13.2-15.2) 12/11/21 13:32 Plt Count 199 K/mm3 (140-440) 12/11/21 13:32 Lymph % (Auto) 26.4 % (13.4-35.0) 12/11/21 13:32 [place] % (Auto) 15.8 % (0.0-7.3) H 12/11/21 13:32 Eos % (Auto) 1.1 % (0.0-4.3) 12/11/21 13:32 Baso % (Auto) 0.4 % (0.0-1.8) 12/11/21 13:32 Lymph # (Auto) 1.4 K/mm3 (1.2-5.4) 12/11/21 13:32 [place] # (Auto) 0.8 K/mm3 (0.0-0.8) 12/11/21 13:32 Eos # (Auto) 0.1 K/mm3 (0.0-0.4) 12/11/21 13:32 Baso # (Auto) 0.0 K/mm3 (0.0-0.1) 12/11/21 13:32 Seg Neutrophils % 56.3 % (40.0-70.0) 12/11/21 13:32 Seg Neutrophils # 3.0 K/mm3 (1.8-7.7) 12/11/21 13:32 Sodium 138 mmol/L (137-145) 12/11/21 13:32 Potassium 4.1 mmol/L (3.6-5.0) 12/11/21 13:32 Chloride 101.4 mmol/L (98-107) 12/11/21 13:32 Carbon Dioxide 24 mmol/L (22-30) 12/11/21 13:32 Anion Gap 17 mmol/L 12/11/21 13:32 BUN 21 mg/dL (9-20) H 12/11/21 13:32 Creatinine 1.4 mg/dL (0.8-1.3) H 12/11/21 13:32 Estimated GFR 48 ml/min 12/11/21 13:32 BUN/Creatinine Ratio 15 % 12/11/21 13:32 Glucose 117 mg/dL (75-100) H 12/11/21 13:32 Hemoglobin A1c 6.1 % (4-6) H 12/11/21 13:32 Calcium 8.7 mg/dL (8.4-10.2) 12/11/21 13:32 Total Bilirubin 0.50 mg/dL (0.1-1.2) 12/11/21 13:32 AST 45 units/L (5-40) H 12/11/21 13:32 ALT 50 units/L (7-56) 12/11/21 13:32 Alkaline Phosphatase 69 units/L (35-129) 12/11/21 13:32 Total Protein 6.1 g/dL (6.3-8.2) L 12/11/21 13:32 Albumin 4.0 g/dL (3.9-5) 12/11/21 13:32 Albumin/Globulin Ratio 1.9 % 12/11/21 13:32 Triglycerides 251 mg/dL (2-149) H 12/11/21 13:32 Cholesterol 239 mg/dL (50-199) H 12/11/21 13:32 LDL Cholesterol Direct 158 mg/dL (50-130) H 12/11/21 13:32 HDL Cholesterol 41 mg/dL (40-59) 12/11/21 13:32 Cholesterol/HDL Ratio 5.82 % 12/11/21 13:32 TSH 3.160 mlU/mL (0.270-4.200) 12/11/21 13:32 Coronavirus (PCR) Positive (Negative) A 12/16/21 08:35 Hepatitis A IgM Ab Non-reactive (NonReactive) 12/11/21 13:32 Hep Bs Antigen Non-reactive (Negative) 12/11/21 13:32 Hep B Core IgM Ab Non-reactive (NonReactive) 12/11/21 13:32 Hepatitis C Antibody Non-reactive (NonReactive) 12/11/21 13:32 Core Measure Documentation - Palliative Care Palliative Care/ Comfort Measures: Not Applicable - Core Measures Any of the following diagnoses?: none - VTE Discharge Requirements Deep Vein Thrombosis/Pulmonary Embolism Present on Admission: No Exam - Constitutional Vitals: Temp Pulse Resp BP Pulse Ox 98.1 F 46 L 17 147/54 90 12/22/21 07:30 12/22/21 07:30 12/22/21 07:30 12/22/21 07:30 12/22/21 07:30 Plan Activity: advance as tolerated Weight Bearing Status: Weight Bear as Tolerated Care Plan Goals: Maintain good and stable mental health. Plan of Treatment: The patient should be compliant with medications, not to use drugs and not to drink alcohol.The patient understands that if suicidal ideas, homicidal ideas, or any endangering thoughts/behavior arise, they should immediately seek for emergent assistance including but not limited to crisis hot line and emergency room. Follow up with outpatient Psychiatrist and PCP within 7 - 14 days of discharge. Follow up with: PRIMARY CARE,MD [Primary Care Provider] - 7 Days Prescriptions: Escitalopram [Lexapro] 10 mg PO QHS 30 Days #30 QUEtiapine [SEROquel] 50 mg PO QHS 30 Days #[address] [Depsylviete ] 125 mg PO BID 30 Days #60 QUEtiapine [SEROquel] 25 mg PO 1400 30 Days #30 buPROPion XL [Wellbutrin XL] 150 mg PO QDAY 30 Days #30 tablet
[2021-12-22] MEDS: DIVALPROEX DR 125 MG TAB PO SCH (10:50)
[2021-12-22] MEDS: ASCORBIC ACID 500 MG TAB PO SCH (10:50)
[2021-12-22] MEDS: buPROPion XL 150 MG TAB PO SCH (10:50)
[2021-12-22] MEDS: ZINC SULFATE 220 MG CAP PO SCH (10:50)
[2021-12-22] MEDS: CHOLECALCIFEROL (VIT D3) 1000 UNIT (25 mcg) TAB PO SCH (10:50)
[2021-12-22] MEDS: ASPIRIN 81 MG TAB CHEW PO SCH (10:50)
[2021-12-22] MEDS: CYANOCOBALAMIN (VIT B-12) 1000 MCG TAB PO SCH (10:51)
[2021-12-22] MEDS: predniSONE 10 MG TAB PO SCH (10:51)
[2021-12-22] MEDS: TIMOLOL 0.5% OPHTH SOLN 5 ML OU SCH (10:52)
[2021-12-22] MEDS: IBUPROFEN 800 MG TAB PO SCH (10:53)
== END 2021-12-22 13:30 | disposition home or self-care (01) | DRG 884 ==
LOC: UNDOADMIN 13:01 → 3A 13:01 → 5A 12-10 18:29
PROVIDERS: ADMIT Psychiatry & Neurology Psychiatry; ATTEND Psychiatry & Neurology Psychiatry
DX: F03.91 Unspecified dementia, unspecified severity, with behavioral disturbance (principal); U07.1 COVID-19; I25.10 Atherosclerotic heart disease of native coronary artery without angina pectoris; R45.1 Restlessness and agitation; I67.2 Cerebral atherosclerosis; E78.2 Mixed hyperlipidemia; Z79.82 Long term (current) use of aspirin; F32.A Depression, unspecified
CPT/HCPCS: 36415; 80053; 80061; 80074; 83036; 84443; 85025; G0378; J7512; U0003